=== PATIENT | male | born 1980 | race Caucasian/White ===

== ENCOUNTER 2020-04-28 07:27 | Outpatient (REF) | payer OTHER, SELFPAY ==
[2020-04-28 08:40] LABS: MANUAL DIFF FLAG NO
[2020-04-28 08:46] LABS: Basophils Absolute Auto 0.1 X10*3/uL (0.0-0.2); Basophils Percent Auto 0.7 % (0-2); Eosinophils Absolute Auto 0.3 X10*3/uL (0.0-0.4); Eosinophils Percent Auto 2.7 % (0-4); Hematocrit 44.4 % (42-52); Hemoglobin 15.1 g/dl (14.0-18.0); Imm Gran Abs Auto 0.04 X10*3/uL (0.00-0.03); Imm Gran Pct Auto 0.4 % (0.0-0.4); Lymphocytes Absolute Auto 3.3 X10*3/uL (1.2-4.9); Lymphocytes Percent Auto 33.9 % (20-40); Mean Corpuscular Hemoglobin 30.6 pg (27.0-33.0); Mean Corpuscular Volume 89.9 fL (80-98); Mean Platelet Volume 9.4 fL (9.4-12.4); Monocytes Absolute Auto 0.9 X10*3/uL (0.1-1.2); Monocytes Percent Auto 8.9 % (2-11); Neutrophils Absolute Auto 5.2 X10*3/uL (2.0-8.3); Neutrophils Percent Auto 53.4 % (45-73); Platelet Count 266 X10*3/uL (160-400); Red Blood Count 4.94 X10*6/uL (4.60-5.80); Red Cell Distribution Width 12.8 % (11.0-16.0); White Blood Count 9.8 X10*3/uL (4.8-10.8)
[2020-04-28 08:57] LABS: Glucose Urine UA NEG (NEG); Leukocyte Esterase Urine NEG (NEG); Nitrite Urine NEG (NEG); Specific Gravity - Urine 1.025 (1.005-1.025); Urine Blood NEG (NEG); Urine Ketones NEG (NEG); Urine Protein NEG (NEG-TRACE)
[2020-04-28 08:59] LABS: Appearance Urine CLEAR; Color Urine YELLOW
[2020-04-28 10:01] LABS: Alanine Aminotransferase 30 U/L (0-40); Albumin Level 4.3 g/dL (3.5-5.0); Alkaline Phosphatase 66 U/L (39-117); Anion Gap 14 (12-20); Aspartate Amino Transferase 23 U/L (5-37); Bilirubin Total 0.6 mg/dL (0.0-1.0); Blood Urea Nitrogen 11 mg/dL (9-16); Calcium 9.3 mg/dL (8.4-10.2); Carbon Dioxide 28 mmol/L (22-29); Chloride 103 mmol/L (96-108); Cholesterol 165 mg/dL; Estimated Glomerular Filt Rate > 60; Glucose Fasting 80 mg/dL (60-99); HDL Cholesterol 41 mg/dL; LDL Cholesterol Calculated 101 mg/dl; Potassium 4.5 mmol/l (3.3-5.1); Sodium 140 mmol/L (135-145); Total Protein 7.1 g/dL (6.5-8.0); Triglycerides 117 mg/dL
[2020-04-28 10:50] LABS: Prostate Specific Antigen Scr 0.19 ng/mL (<0.05-4.0)
== END 2020-04-28 07:28 | disposition home or self-care (01) ==
LOC: HO.LAB 07:27
PROVIDERS: PCP Internal Medicine; Visit Provider Internal Medicine
DX: Z00.00 Encounter for general adult medical examination without abnormal findings (principal); I10 Essential (primary) hypertension; F41.9 Anxiety disorder, unspecified; K92.1 Melena; Z12.5 Encounter for screening for malignant neoplasm of prostate
CPT/HCPCS: 36415; 80053; 80061; 81003; 84153; 85025

== ENCOUNTER 2021-05-11 10:38 | Outpatient (REF) | payer OTHER, SELFPAY ==
[2021-05-11 10:44] LABS: MANUAL DIFF FLAG NO
[2021-05-11 11:19] LABS: Basophils Absolute Auto 0.1 X10*3/uL (0.0-0.2); Basophils Percent Auto 0.7 % (0-2); Eosinophils Absolute Auto 0.3 X10*3/uL (0.0-0.4); Eosinophils Percent Auto 2.7 % (0-4); Hematocrit 45.1 % (42.0-52.0); Hemoglobin 14.9 g/dl (14.0-18.0); Imm Gran Abs Auto 0.03 X10*3/uL (0.00-0.03); Imm Gran Pct Auto 0.3 % (0.0-0.4); Lymphocytes Absolute Auto 3.9 X10*3/uL (1.2-4.9); Lymphocytes Percent Auto 34.8 % (20-40); Mean Corpuscular Hemoglobin 29.2 pg (27.0-33.0); Mean Corpuscular Volume 88.3 fL (80.0-98.0); Mean Platelet Volume 9.9 fL (9.4-12.4); Monocytes Absolute Auto 0.9 X10*3/uL (0.1-1.2); Monocytes Percent Auto 8.1 % (2-11); Neutrophils Percent Auto 53.4 % (45-73); Platelet Count 302 X10*3/uL (160-400); Red Blood Count 5.11 X10*6/uL (4.60-5.80); Red Cell Distribution Width 13.1 % (11.0-16.0); White Blood Count 11.2 X10*3/uL (4.8-10.8)
[2021-05-11 11:24] LABS: Appearance Urine CLEAR; Color Urine YELLOW; Glucose Urine UA NEG (NEG); Leukocyte Esterase Urine NEG (NEG); Nitrite Urine NEG (NEG); Specific Gravity - Urine >= 1.030 (1.005-1.025); Urine Blood NEG (NEG); Urine Ketones NEG (NEG); Urine Protein 2+ MG/DL (NEG-TRACE)
[2021-05-11 11:40] LABS: Alanine Aminotransferase 34 U/L (0-40); Alkaline Phosphatase 78 U/L (39-117); Anion Gap 11 (12-20); Aspartate Amino Transferase 24 U/L (5-37); Bilirubin Total 0.5 mg/dL (0.0-1.0); Blood Urea Nitrogen 10 mg/dL (9-16); Calcium 9.5 mg/dL (8.4-10.2); Carbon Dioxide 27 mmol/L (22-29); Chloride 104 mmol/L (96-108); Cholesterol 150 mg/dL; Estimated Glomerular Filt Rate > 60; Glucose Fasting 103 mg/dL (60-99); HDL Cholesterol 36 mg/dL; LDL Cholesterol Calculated 87 mg/dl; Potassium 4.1 mmol/L (3.3-5.1); Sodium 138 mmol/L (135-145); Triglycerides 136 mg/dL
[2021-05-11 11:53] LABS: PSA,Total (Free>4and<10) 0.18 ng/mL (0.00-4.00)
[2021-05-11 12:05] LABS: Calcium Oxalate Crystals Urine 1+ /LPF; WBC Urine 0 /HPF (0-4)
== END 2021-05-11 10:39 | disposition home or self-care (01) ==
LOC: HO.LNP 10:38
PROVIDERS: PCP Internal Medicine; Visit Provider Internal Medicine
DX: Z00.00 Encounter for general adult medical examination without abnormal findings (principal); I10 Essential (primary) hypertension; Z12.5 Encounter for screening for malignant neoplasm of prostate
CPT/HCPCS: 80053; 80061; 81001; 81003; 84153; 85025

== ENCOUNTER → 2021-06-23 10:38 | Outpatient (BNVA) | payer OTHER, SELFPAY | PROVIDERS: PCP Internal Medicine; Visit Provider Internal Medicine ==

== ENCOUNTER 2022-05-25 10:46 | Outpatient (REF) | payer OTHER, SELFPAY ==
[2022-05-25 10:52] LABS: MANUAL DIFF FLAG NO
[2022-05-25 11:05] LABS: Basophils Absolute Auto 0.1 X10*3/uL (0.0-0.2); Basophils Percent Auto 0.7 % (0-2); Eosinophils Absolute Auto 0.3 X10*3/uL (0.0-0.4); Eosinophils Percent Auto 2.6 % (0-4); Hematocrit 43.3 % (42.0-52.0); Hemoglobin 14.3 g/dl (14.0-18.0); Imm Gran Abs Auto 0.06 X10*3/uL (0.00-0.03); Imm Gran Pct Auto 0.5 % (0.0-0.4); Lymphocytes Absolute Auto 3.7 X10*3/uL (1.2-4.9); Lymphocytes Percent Auto 32.7 % (20-40); Mean Corpuscular Hemoglobin 29.4 pg (27.0-33.0); Mean Corpuscular Volume 89.1 fL (80.0-98.0); Mean Platelet Volume 9.6 fL (9.4-12.4); Monocytes Percent Auto 8.7 % (2-11); Neutrophils Absolute Auto 6.3 x10*3/uL (2.0-8.3); Neutrophils Percent Auto 54.8 % (45-73); Platelet Count 281 X10*3/uL (160-400); Red Blood Count 4.86 X10*6/uL (4.60-5.80); Red Cell Distribution Width 13.5 % (11.0-16.0); White Blood Count 11.4 X10*3/uL (4.8-10.8)
[2022-05-25 11:13] LABS: Appearance Urine Clear; Color Urine Yellow; Glucose Urine UA Negative (Negative); Leukocyte Esterase Urine Negative (Negative); Nitrite Urine Negative (Negative); PH 5.5 (5.0-9.0); UMIC TRIGGER UACC YES; Urine Blood Negative (Negative); Urine Ketones Trace mg/dL (Negative); Urine Protein 100 (2+) mg/dL (Neg-Trace)
[2022-05-25 11:18] LABS: Bacteria Urine None Seen (None Seen); Hyaline Casts Urine 0-2 /LPF (0-2); RBC Urine 0-2 /HPF (0-2); Squamous Epithelial Cell Urine 0-2 /HPF (0-2); WBC Urine 0-5 /HPF (0-5)
[2022-05-25 11:50] LABS: Alanine Aminotransferase 29 U/L (0-40); Albumin Level 4.1 g/dL (3.5-5.0); Alkaline Phosphatase 79 U/L (39-117); Anion Gap 12 (12-20); Aspartate Amino Transferase 24 U/L (5-37); Bilirubin Total 0.5 mg/dL (0.0-1.0); Blood Urea Nitrogen 10 mg/dL (9-16); Calcium 9.8 mg/dL (8.4-10.2); Carbon Dioxide 28 mmol/L (22-29); Chloride 103 mmol/L (96-108); Cholesterol 150 mg/dL; Estimated Glomerular Filt Rate > 60; Glucose Fasting 114 mg/dL (60-99); HDL Cholesterol 36 mg/dL; LDL Cholesterol Calculated 78 mg/dl; Potassium 4.4 mmol/L (3.3-5.1); Sodium 139 mmol/L (135-145); Total Protein 7.2 g/dL (6.5-8.0); Triglycerides 182 mg/dL
[2022-05-25 12:09] LABS: PSA,Total (Free>4and<10) 0.18 ng/mL (0.00-4.00)
== END 2022-05-25 10:47 | disposition home or self-care (01) ==
LOC: HO.LNP 10:46
PROVIDERS: Visit Provider Internal Medicine
DX: Z00.00 Encounter for general adult medical examination without abnormal findings (principal); I10 Essential (primary) hypertension; Z12.5 Encounter for screening for malignant neoplasm of prostate
CPT/HCPCS: 80053; 80061; 81001; 84153; 85025

== ENCOUNTER 2022-05-31 16:10 | Outpatient (REF) | payer OTHER, SELFPAY ==
[2022-05-31 16:17] LABS: Appearance Urine Clear; Color Urine Yellow; Glucose Urine UA Negative (Negative); Leukocyte Esterase Urine Negative (Negative); Nitrite Urine Negative (Negative); Specific Gravity - Urine <= 1.005 (1.005-1.025); Urine Blood Negative (Negative); Urine Ketones Negative (Negative); Urine Protein Negative (Neg-Trace)
[2022-05-31 16:19] LABS: Bacteria Urine None Seen (None Seen); Hyaline Casts Urine 0-2 /LPF (0-2); Squamous Epithelial Cell Urine 0-2 /HPF (0-2); WBC Urine 0-5 /HPF (0-5)
[2022-05-31 16:34] LABS: RBC Urine 0-2 /HPF (0-2)
== END 2022-05-31 16:11 | disposition home or self-care (01) ==
LOC: HO.LNP 16:10
PROVIDERS: PCP Internal Medicine; Visit Provider Internal Medicine
DX: R80.9 Proteinuria, unspecified (principal)
CPT/HCPCS: 81001

== ENCOUNTER 2022-07-02 10:50 | Outpatient (REF) | payer OTHER, SELFPAY ==
[2022-07-02 10:58] LABS: Appearance Urine Clear; Color Urine Yellow; Glucose Urine UA Negative (Negative); Leukocyte Esterase Urine Negative (Negative); Nitrite Urine Negative (Negative); Specific Gravity - Urine >= 1.030 (1.005-1.025); UMIC TRIGGER UACC YES; Urine Blood Negative (Negative); Urine Ketones Negative (Negative); Urine Protein 300 (3+) mg/dL (Neg-Trace)
[2022-07-02 11:02] LABS: Bacteria Urine None Seen (None Seen); Hyaline Casts Urine 0-2 /LPF (0-2); Squamous Epithelial Cell Urine 0-2 /HPF (0-2); WBC Urine 0-5 /HPF (0-5)
== END 2022-07-02 10:51 | disposition home or self-care (01) ==
LOC: HO.LNP 10:50
PROVIDERS: Visit Provider Internal Medicine
DX: R80.9 Proteinuria, unspecified (principal)
CPT/HCPCS: 81001

== ENCOUNTER → 2022-08-03 16:02 | Outpatient (BNVA) | payer OTHER, SELFPAY | PROVIDERS: PCP Internal Medicine; Visit Provider Psychiatry & Neurology Psychiatry | DX: Z13.89 Encounter for screening for other disorder (principal) ==

== ENCOUNTER 2022-10-27 07:20 | Outpatient (REF) | payer OTHER, SELFPAY ==
[2022-10-27 09:58] LABS: Creatinine Urine 115.71 mg/dL; Microalbum/Creatinine Ratio Ur 398.4 ug/mg cr
[2022-10-27 10:40] LABS: Appearance Urine Clear; Color Urine Yellow; Glucose Urine UA Negative (Negative); Leukocyte Esterase Urine Negative (Negative); Nitrite Urine Negative (Negative); PH 6.5 (5.0-9.0); Specific Gravity - Urine 1.015 (1.005-1.025); UMIC TRIGGER UA YES; Urine Blood Negative (Negative); Urine Ketones Negative (Negative); Urine Protein 100 (2+) mg/dL (Neg-Trace)
[2022-10-27 10:46] LABS: Bacteria Urine None Seen (None Seen); Hyaline Casts Urine 0-2 /LPF (0-2); RBC Urine 0-2 /HPF (0-2); Squamous Epithelial Cell Urine 0-2 /HPF (0-2); WBC Urine 0-5 /HPF (0-5)
== END 2022-10-27 07:21 | disposition home or self-care (01) ==
LOC: HO.LAB 07:20
PROVIDERS: PCP Internal Medicine; Visit Provider Internal Medicine Nephrology
DX: R80.1 Persistent proteinuria, unspecified (principal)
CPT/HCPCS: 81001; 81003; 82043

== ENCOUNTER 2023-05-26 11:04 | Outpatient (REF) | payer OTHER, SELFPAY | END 2023-05-26 11:05 | disposition home or self-care (01) | LOC: HO.LNP 11:04 | PROVIDERS: Visit Provider Internal Medicine | DX: Z00.00 Encounter for general adult medical examination without abnormal findings (principal); Z12.5 Encounter for screening for malignant neoplasm of prostate; I10 Essential (primary) hypertension | CPT/HCPCS: 80053; 80061; 81001; 84153; 85025 ==

== ENCOUNTER 2023-07-01 11:19 | Outpatient (REF) | payer OTHER, SELFPAY ==
[2023-07-01 11:22] LABS: MANUAL DIFF FLAG NO
[2023-07-01 11:59] LABS: Basophils Absolute Auto 0.1 X10*3/uL (0.0-0.2); Basophils Percent Auto 0.8 % (0-2); Eosinophils Absolute Auto 0.3 X10*3/uL (0.0-0.4); Eosinophils Percent Auto 2.4 % (0-4); Hematocrit 41.7 % (42.0-52.0); Hemoglobin 13.3 g/dl (14.0-18.0); Imm Gran Abs Auto 0.06 X10*3/uL (0.00-0.03); Imm Gran Pct Auto 0.5 % (0.0-0.4); Lymphocytes Absolute Auto 3.8 X10*3/uL (1.2-4.9); Lymphocytes Percent Auto 32.3 % (20-40); Mean Corpuscular HGB Conc 31.9 g/dl (31.0-36.0); Mean Corpuscular Hemoglobin 26.8 pg (27.0-33.0); Mean Corpuscular Volume 84.1 fL (80.0-98.0); Mean Platelet Volume 9.7 fL (9.4-12.4); Monocytes Percent Auto 8.5 % (2-11); Neutrophils Absolute Auto 6.6 x10*3/uL (2.0-8.3); Neutrophils Percent Auto 55.5 % (45-73); Platelet Count 306 X10*3/uL (160-400); Red Blood Count 4.96 X10*6/uL (4.60-5.80); Red Cell Distribution Width 14.1 % (11.0-16.0); White Blood Count 11.8 X10*3/uL (4.8-10.8)
[2023-07-01 12:28] LABS: Iron 50 mcg/dL (45-160); Percent Iron Saturation 16 % (15-50); Total Iron Binding Capacity 315 mcg/dL (228-428); Unsaturated Iron Binding 265 ug/dL
[2023-07-01 13:01] LABS: Folate 13.9 ng/mL (> or = 4.0); Vitamin B12 844 pg/mL (200-900)
== END 2023-07-01 11:20 | disposition home or self-care (01) ==
LOC: HO.LNP 11:19
PROVIDERS: Visit Provider Internal Medicine
DX: D64.9 Anemia, unspecified (principal)
CPT/HCPCS: 82607; 82746; 83540; 85025

== ENCOUNTER 2023-07-19 16:03 | Outpatient (AMB) | payer OTHER, SELFPAY ==
--- NOTE | 2023-07-19 16:13 | A.OFFPSYCH_ITS ---
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 lisinopril inc 20 mg when stressed does meditation uses calm does walks to destress Past Psychiatric History: Past history of depression intermittent panic attacks Mental Status Exam Mental Status Exam Narrative: Mental Status Exam Narrative: Appearance: Casually dressed Behavior: Cooperative appropriate psychomotor: Within normal limits Speech: Normal volume and prosody Thought proccess logical and goal-directed Thought content: Future oriented no self-harming thoughts Mood: Euthymic Affect: Appropriate to mood full affect SI:denies HI:denies VH/AH:none Delusions: None Insight/judgment: Good insight and judgment Memory/cog: Intact Assessment and Plan Assessment & Plan (1) Generalized anxiety disorder: Status: Acute Code(s): F41.1 - Generalized anxiety disorder (2) Major depression, recurrent, full remission: Status: Acute Code(s): F33.42 - Major depressive disorder, recurrent, in full remission (3) Hypertension: Status: Acute Code(s): I10 - Essential (primary) hypertension Plan Pt seen chart reviewed has generally been well works at managing stress quite supportive feels wellbutrin helpful does breathing meditation Medications: Refilled bupropion HCl 300 mg PO DAILY 30 tabs 2RF bupropion HCl 300 mg PO DAILY 90 tabs 1RF Counseling and coordination of Care Diagnosis and Prognosis Counseling: Adequacy of current interventions Details: I spent [30] minutes reviewing the record, seeing the patient and documenting in the medical record. Counseling provided to the patient/caregiver as outlined below. Addressed patient/caregiver concerns regarding current medication regime including effective adherence. Addressed patient/caregiver concerns regarding diagnosis and prognosis including accuracy of diagnosis, prognosis over time, impact of diagnosis. Addressed patient/caregiver concerns regarding impact of recent stressors. 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
== END 2023-07-19 16:19 | disposition home or self-care (01) ==
LOC: HO.HOP 16:04
PROVIDERS: PCP Internal Medicine; Visit Provider Psychiatry & Neurology Psychiatry
DX: F41.1 Generalized anxiety disorder (principal); F33.42 Major depressive disorder, recurrent, in full remission; I10 Essential (primary) hypertension
CPT/HCPCS: 99214

== ENCOUNTER → 2023-07-19 16:03 | Outpatient (BNVA) | payer OTHER, SELFPAY | PROVIDERS: PCP Internal Medicine; Visit Provider Psychiatry & Neurology Psychiatry ==

== ENCOUNTER 2023-12-23 11:20 | Outpatient (AMB) | payer BC, SELFPAY ==
--- NOTE | 2023-12-23 12:42 | A.OFFPSYCH_ITS ---
Intake Intake Visit Reasons: depression Allergies No Known Allergies Allergy (Unverified 06/23/21 11:16) HPI- Psychiatric Chief Complaint: depression HPI Narrative: Patient seen psychiatric follow-up. 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 Patient's mood generally good has some periods of anxiety and rarely takes lorazepam does relaxation breathing. Patient generally feels stable on Wellbutrin. Has some periods of insomnia. Patient's work is stable and feeling good relationship with his and children. No new concerns feels generally good on Wellbutrin 300 mg again some periods of insomnia Past Psychiatric History: Past history of depression intermittent panic attacks Mental Status Exam Mental Status Exam Narrative: Mental Status Exam Narrative: Appearance: Casually dressed Behavior: Cooperative appropriate psychomotor: Within normal limits Speech: Normal volume and prosody Thought proccess logical and goal-directed Thought content: Future oriented no self-harming thoughts Mood: Euthymic Affect: Appropriate to mood full affect SI:denies HI:denies VH/AH:none Delusions: None Insight/judgment: Good insight and judgment Memory/cog: Intact Assessment and Plan Assessment & Plan (1) Generalized anxiety disorder: Status: Acute Code(s): F41.1 - Generalized anxiety disorder (2) Major depression, recurrent, full remission: Status: Acute Code(s): F33.42 - Major depressive disorder, recurrent, in full remission Plan Risks benefits alternatives and sleep hygiene discussed patient doxepin 6 mg started should not be problematic at this low-dose with Wellbutrin. Patient has techniques to manage stress and anxiety rare use of lorazepam continue plan of care Medications: New doxepin 6 mg PO BEDTIME PRN 30 tabs 2RF sleep Refilled bupropion HCl XL 300 mg PO DAILY 90 tabs 1RF lorazepam 0.5 - 1 mg (0.5 - 1 x 1 mg) PO DAILY PRN 30 tabs 2RF anxiety Counseling and coordination of Care Pt. Self Management counseling: Breathing Details-Self Mgmt counseling: Issues related to insomnia anxiety management Medication management counseling: Effectiveness, Side effects and Dosing range Diagnosis and Prognosis Counseling: Adequacy of current interventions Details: I spent [30] minutes reviewing the record, seeing the patient and documenting in the medical record. Counseling provided to the patient/caregiver as outlined below. Addressed patient/caregiver concerns regarding current medication regime including effective adherence. Addressed patient/caregiver concerns regarding diagnosis and prognosis including accuracy of diagnosis, prognosis over time, impact of diagnosis. Addressed patient/caregiver concerns regarding impact of recent stressors. 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
== END 2023-12-23 12:03 | disposition home or self-care (01) ==
LOC: HO.HOP 11:20
PROVIDERS: PCP Internal Medicine; Visit Provider Psychiatry & Neurology Psychiatry
DX: F41.1 Generalized anxiety disorder (principal); F33.42 Major depressive disorder, recurrent, in full remission
CPT/HCPCS: 99214

== ENCOUNTER → 2023-12-23 11:20 | Outpatient (BNVA) | payer BC, SELFPAY | PROVIDERS: PCP Internal Medicine; Visit Provider Psychiatry & Neurology Psychiatry ==

== ENCOUNTER 2024-04-17 15:28 | Outpatient (AMB) | payer BC, SELFPAY ==
--- NOTE | 2024-04-17 15:31 | MHC.OFFVIS ---
Vital Signs 04/17/24 15:32 Height 5 ft 4 in Weight 332 lb 14.368 oz BMI 57.1 BP 158/82 H Blood Pressure Location Lt brachial Position Sitting Pulse 97 Pulse Source Pulse Oximeter Pulse Oximetry (%) 96 Oxygen Delivery Method Room Air Intake Visit Reasons: Obstructive sleep apnea Intake Note: pt is here for follow up of OMARI, and doing well. 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 He is coming for follow-up after about 2 years. He uses CPAP very regularly every night and in fact without CPAP he would not be able to fall asleep. His weight has not changed. He is looking into weight watchers program or starting on anti obesity meds. He has no issue with the CPAP device are the mask but needs new supplies. [facility] Medical History Generalized anxiety disorder OMARI on CPAP Morbid obesity Social History Patient Tobacco Use Status: Never used Tobacco Review of Systems Const All systems reviewed & are unremarkable except as noted in HPI and below Eyes Reports no additional complaints ENT Reports no additional complaints Card Denies chest pain, Denies irregular heart rhythm and Denies leg edema Resp Reports as per HPI and Reports no additional complaints GI Reports no additional complaints Reports no additional complaints Skin/Breast Reports system reviewed and no additional complaints, except as documented Neuro Reports no additional complaints Psych Reports anxiety (Mild controlled) Alexandre/Lymph Reports no additional complaints Aller/Immun Reports no additional complaints Physical Exam Vital Signs: Last Vital Signs Pulse 97 11/26/24 15:32 BP 158/82 H 11/26/24 15:32 Pulse Ox 96 04/17/24 15:32 Oxygen Delivery Method Room Air 04/17/24 15:32 BMI result Body Mass Index 0.6 Const Other: Grossly obese with a very round face and obese neck, General: comfortable, no acute distress, alert and awake Orientation/consciousness: patient oriented x3 HEENT Head: Yes normal to inspection General nose exam: No nasal polyps present and No nasal discharge present Face and sinus: Yes sinuses nontender Mouth: oropharynx abnormals (Narrow and crowded oropharynx, Mallampati class 4) Throat: Yes posterior oropharynx normal Eyes General: appearance normal, both eyes and all related structures Neck Neck: Yes normal visual inspection, Yes no lymphadenopathy, Yes trachea midline and Yes no JVD Thyroid: Thyroid normal Chest Chest palpation & inspection: normal inspection of the chest, normal palpation of entire chest wall and no tenderness Resp Other: Percussion note is not perceptible because of thick chest wall. Breath sounds are distant. Lungs are clear to auscultation no wheezes or rhonchi but breath sounds are decreased over the lower lobes. Cardio Palpation: normal PMI Rate: regular rate Rhythm: regular rhythm Heart sounds: no gallops and no murmurs Peripheral pulses: Peripheral pulses 2+ throughout GI Palpation (GI): Soft to palpation, nontender, No hepatosplenomegaly present, no masses and Other GI palpation findings present (Abdomen is grossly obese and protuberant) Auscultation: normal bowel sounds Back/Spine/Pelvis Thoracic/Lumbar Spine: thoracic and lumbar spine normal to inspection Skin General skin exam: no rashes or lesions noted Neuro General: patient oriented x3 and no focal motor deficits Cranial nerves: Yes CN's II-XII intact bilaterally Extrem General: Yes normal to inspection, Yes no clubbing, cyanosis or edema and Yes no calf tenderness Psych Appearance: grossly normal and well kempt Speech and movement: Normal speech and movement present Results Reviewed Results Reviewed: Compliance report for the last 30 nights is reviewed. He has used 100% of the nights. Average use it per night 6 hours 28 minute. He has fullface mask with pressure of 14 cm. There is a mild degree of air leak. Residual AHI 2.2 Assessment & Plan Assessment & Plan (1) Morbid obesity: Comment: This gentleman known to have morbid obesity for the past many years. He has not been consistent with any weight reduction program. Code(s): E66.01 - Morbid (severe) obesity due to excess calories Category: Medical Plan: I talked to him in detail and advised him to join weight management program. He does need to lose significant amount of weight, and may need bariatric surgery. He plans to talk to his primary care physician and see if he can be enrolled in anti obesity med ( such as Ozempic ) therapy. (2) OMARI on CPAP: Comment: Known to have severe obstructive sleep apnea with nocturnal hypoxemia, since 2016. Has been treated with CPAP, full face mask and pressure of 14 cm, which also eliminated nocturnal hypoxemia. He has been very compliant to the use of CPAP. In fact he just cannot sleep without the CPAP device, and it would be deleterious for his health, to go without the use of CPAP. Code(s): G47.33 - Obstructive sleep apnea (adult) (pediatric); Z99.89 - Dependence on other enabling machines and devices Category: Medical Plan: Commended for good compliance and advised to continue using the CPAP regularly. Order for new supplies is sent. I advised him to come for follow-up at least once a year. Coding Level of Care Code Est Pt Level 3 (41314) Diagnoses Morbid obesity E66.01 OMARI on CPAP G47.33; Z99.89
[2024-04-17 15:32] VITALS: BP 158/82; PULSE 97; O2SAT 96; BMI 57.1
== END 2024-04-17 16:07 | disposition home or self-care (01) ==
PROVIDERS: PCP Internal Medicine; Visit Provider Internal Medicine
DX: E66.01 Morbid (severe) obesity due to excess calories (principal); G47.33 Obstructive sleep apnea (adult) (pediatric); Z99.89 Dependence on other enabling machines and devices
CPT/HCPCS: 99213

== ENCOUNTER 2024-05-29 10:53 | Outpatient (REF) | payer BC, SELFPAY ==
[2024-05-29 10:55] LABS: MANUAL DIFF FLAG NO
[2024-05-29 11:11] LABS: Basophils Absolute Auto 0.1 X10*3/uL (0.0-0.2); Basophils Percent Auto 0.8 % (0-2); Eosinophils Absolute Auto 0.3 X10*3/uL (0.0-0.4); Hematocrit 32.1 % (42.0-52.0); Hemoglobin 9.8 g/dl (14.0-18.0); Imm Gran Abs Auto 0.08 X10*3/uL (0.00-0.03); Imm Gran Pct Auto 0.7 % (0.0-0.4); Lymphocytes Absolute Auto 3.6 X10*3/uL (1.2-4.9); Lymphocytes Percent Auto 32.1 % (20-40); Mean Corpuscular HGB Conc 30.5 g/dl (31.0-36.0); Mean Corpuscular Hemoglobin 22.7 pg (27.0-33.0); Mean Corpuscular Volume 74.3 fL (80.0-98.0); Mean Platelet Volume 9.3 fL (9.4-12.4); Monocytes Percent Auto 9.1 % (2-11); Neutrophils Absolute Auto 6.1 x10*3/uL (2.0-8.3); Neutrophils Percent Auto 54.3 % (45-73); Platelet Count 325 X10*3/uL (160-400); Red Blood Count 4.32 X10*6/uL (4.60-5.80); Red Cell Distribution Width 16.5 % (11.0-16.0); White Blood Count 11.2 X10*3/uL (4.8-10.8)
[2024-05-29 11:13] LABS: Appearance Urine Clear; Color Urine Yellow; Glucose Urine UA Negative (Negative); Leukocyte Esterase Urine Negative (Negative); Nitrite Urine Negative (Negative); PH 5.5 (5.0-9.0); Specific Gravity - Urine 1.025 (1.005-1.025); UMIC TRIGGER UACC YES; Urine Blood Negative (Negative); Urine Ketones Negative (Negative); Urine Protein 300 (3+) mg/dL (Neg-Trace)
[2024-05-29 11:18] LABS: Bacteria Urine None Seen (None Seen); RBC Urine 0-2 /HPF (0-2); Squamous Epithelial Cell Urine 0-2 /HPF (0-2); WBC Urine 0-5 /HPF (0-5)
[2024-05-29 11:37] LABS: Alanine Aminotransferase 33 U/L (0-40); Albumin Level 3.8 g/dL (3.5-5.0); Alkaline Phosphatase 61 U/L (39-117); Anion Gap 13 (12-20); Aspartate Amino Transferase 32 U/L (5-37); Bilirubin Total 0.3 mg/dL (0.0-1.0); Blood Urea Nitrogen 9 mg/dL (9-16); Calcium 8.7 mg/dL (8.4-10.2); Carbon Dioxide 25 mmol/L (22-29); Chloride 105 mmol/L (96-108); Cholesterol 137 mg/dL (<200); Estimated Glomerular Filt Rate > 60; Glucose Fasting 116 mg/dL (60-99); HDL Cholesterol 35 mg/dL (>40); LDL Cholesterol Calculated 71 mg/dL (<100); Potassium 3.8 mmol/L (3.3-5.1); Sodium 139 mmol/L (135-145); Total Protein 6.9 g/dL (6.5-8.0); Triglycerides 155 mg/dL (<150)
[2024-05-29 12:00] LABS: PSA,Total (Free>4and<10) 0.15 ng/mL (0.00-4.00)
== END 2024-05-29 10:54 | disposition home or self-care (01) ==
LOC: HO.LNP 10:53
PROVIDERS: Visit Provider Internal Medicine
DX: Z00.00 Encounter for general adult medical examination without abnormal findings (principal); I10 Essential (primary) hypertension; Z12.5 Encounter for screening for malignant neoplasm of prostate
CPT/HCPCS: 80053; 80061; 81001; 84153; 85025

== ENCOUNTER 2024-06-15 | Outpatient (REF) | payer BC, SELFPAY ==
[2024-06-15 11:40] LABS: Iron 37 mcg/dL (45-160); Percent Iron Saturation 11 % (15-50); Total Iron Binding Capacity 341 mcg/dL (228-428); Unsaturated Iron Binding 304 ug/dL
--- OUTSIDE RECORDS SUMMARY | 2024-06-15 12:11 | XMS_ITS ---
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 Name Role Phone Kamar Johnson Primary Care Provider [phone] Allergies No Known Allergies REASON FOR VISIT 6 MO F/U Medications Medication SIG (Take, Route, Frequency, Duration) Notes Start Date End Date Status Tadalafil 20 MG TAKE 1/2 TABLET BY M OUTH ONCE DAILY NEEDED for 60 Active Metoprolol Succinate ER 50 MG TAKE ONE TABLET BY MOUTH ONCE DAILY Active Lisinopril 20 MG 1 tablet Orally Once a day Active buPROPion HCl ER (XL) 300 MG 1 tablet in the morning Orally Once a day Active LORazepam 1 MG 1 tablet as needed Orally prn Not-Taking Vital Signs Blood pressure systolic 132 mm Hg 12/01/19 24 Blood pressure diastolic 88 mm Hg 024 Height 64.5 in 12/01/2023 Weight 324 lbs 12/01/2023 BMI 54.75 kg/m2 12/01/2023 Encounters Encounter Location Date Provider Diagnosis Kamar Johnson MD [address] [place] [phone] 12/01/2023 Kamar Johnson Essential hypertension I10 ; Anxiety F41.9 and OMARI (obstructive sleep apnea) G47.33 Assessments Encounter Date Diagnosis (ICD Code) Assessment Notes Treatment Notes Treatment Clinical Notes Section Notes 12/01/2023 Essential hypertension (ICD-10 - I10) doing well, will continue current regiment 12/01/2023 Anxiety (ICD-10 - F41.9) doing well on meds, will continue current regiment 12/01/2023 OMARI (obstructive sleep apnea) (ICD-10 - G47.33) using nightly. Plan Of Treatment Medication Medication Name Sig Start Date Stop Date Notes Metoprolol Succinate ER 50 MG TAKE ONE T ABLET BY MOUTH ONCE DAILY Lisinopril 20 MG 1 tablet Orally Once a day buPROPion HCl ER (XL) 300 MG 1 tablet in the morning Orally Once a day Treatment Notes Assessment Notes Essential hypertension doing well, will continue current regiment Anxiety doing well on meds, will continue current regiment OMARI (obstructive sleep apnea) using nigh tly. Next Appt Details Provider Name:Kamar lynch, 07/16/2024 07:30:00 AM, [address] [place] [address], [address], [place], [place], [phone], Provider Name:Kamar lynch, 06/07/2025 08:00:00 AM, [address] [place] [address], Suite [facility], [place], [place], [phone], Provider Name:Kamar lynch, 06/17/2025 04:00:00 PM, [address] [place] [address], [address], [place], [place], [phone], Progress Notes * Dominic WILKERSONOB:1980 (43 yo M)Acc No.[id number]:12/01/2023 Progress Notes Patient:?Davon Wilkerson Provider:?Kamar Johnson MD :1980???Age:43 Y???Sex:Male Ever e:12/01/2023 Address:[address] [place], [place] [id number] Subjective: * Chief Complaints: * ???6 MO F/U * HPI: ???Symptom(s):? patient is a 43 yo male here for 6 month follow up visit. * ROS:?General/Constitutional:?Denies?Chills.?Denies?Fatigue.?Denies?Fever.?Denies?Headache.?ENT:?Patient denies?decreased sense of smell , any loss of taste , sore throat.?Denies?Sore throat.?Respiratory:?Denies?Cough.?Denies?Shortness of breath at rest.?Denies?Shortness of breath with exertion.?Cardiovascular:?Denies?Chest pain at rest.?Denies?Chest pain with exertion.?Denies?Dizziness.?Denies?Palpitations.?Denies?Shortness of breath.?Gastrointestinal:?Denies?Diarrhea.?Denies?Nausea.?Musculoskeletal:?Patient denies?muscle aches.?Peripheral Vascular:?Patient denies?red and blue toes.? * Medical History:? * Surgical History:? * Hospitalization/Major Diagno stic Procedure:? * Medications:?TakingbuPROPion HCl ER (XL) 300 MG Tablet Extended Release 24 Hour 1 tablet in the morning Orally Once a dayTadalafil 20 MG Tablet TAKE 1/2 TABLET BY MOUTH ONCE DAILY NEEDED Lisinopril 20 MG Tablet 1 tablet Orally Once a dayMetoprolol Succinate ER 50 MG Tablet Extended Release 24 Hour TAKE ONE TABLET BY MOUTH ONCE DAILY Taking buPROPion HCl ER (XL) 300 MG Tablet Extended Release 24 Hour 1 tablet in the morning Orally Once a dayTaking Tadalafil 20 MG Tablet TAKE 1/2 TABLET BY MOUTH ONCE DAILY NEEDED Taking Lisinopril 20 MG Tablet 1 tablet Orally Once a dayTaking Metoprolol Succinate ER 50 MG Tablet Extended Release 24 Hour TAKE ONE TABLET BY MOUTH ONCE DAILY Not-Taking/PRNLORazepam 1 MG Tablet 1 tablet as needed Orally prnMedication List reviewed and reconciled with the patientNot-Taking/PRN LORazepam 1 MG Tablet 1 tablet as needed Orally prnMedication List reviewed and reconciled with the patient * Allergies:?N.K.D.A.yes[Aller gies Verified] Objective: * Vitals:?Ht: 64.5, Wt:324, BM I:54.75, BP:132/88. * Examination: ???General Examination: ?GENERAL APPEARANCE:? alert, well hydrated, in no distress , male.?HEAD:? normocephalic.?SKIN:? good turgor.?HEART:? no murmurs, rubs, gallops, regular rate and rhythm.?LUNGS:? no wheezes, rales, rhonchi, good air movement, clear to auscultation bilaterally.? Assessment: * Assessment: 1.?Essential hypertension - I10 (Primary)?2.?Anxiety - F41.9?3.?OMARI (obstructive sleep apnea) - G47.33? Plan: * Treatment: 2.?Anxiety? Continue buPROPion HCl ER (XL) Tablet Extended Release 24 Hour, 300 MG, 1 tablet in the morning, Orally, Once a day.?? Notes: doing well on meds, will continue current regiment.?? 3.?OMARI (obstructive sleep ap raul)? Notes: using nightly.?? * Procedure Codes:? * * Sign off status: Completed true * Provider:?Kamar Johnson MD Date:?0 12/01/2023 Generated for Rehana torres/Roopa/Charanjit on:?06/15/2024 12:10 PM EST History and Physical Notes * HPI (History of Present Illness) Category Sub-Category Detail Notes Category Not es Symptom(s) patient is a 43 yo male here for 6 month follow up visit. Examination Category Sub-Category Detail Notes Category Not es General Examination GENERAL APPEARANCE: alert, w ell hydrated, in no distress , male HEAD: normocephalic HEART: no murmurs, rubs, ga llops, regular rate and rhythm LUNGS: no wheezes, rales, r honchi, good air movement, clear to auscultation bilaterally SKIN: good turgor
--- OUTSIDE RECORDS SUMMARY | 2024-06-15 12:11 | XMS_ITS ---
Author Organization Kamar Johnson MD Address [address] [place] [id number] Care Team Providers Care Manufacturing Test Engineer Name Role Phone Kamar Johnson Primary Care Provider Results Component Value Reference Range Notes Complete Blood Count Auto Di ff (Not yet reviewed by provider) Interpretation:see back 06-14-2024 Performing Lab:[facility], [address] [place] [phone] Notes/Report: White Blood Count 11.2 4.8-10.8 X10*3/uL Red Blood Count 4.32 4.60-5.80 X10*6/uL Hemoglobin 9.8 14.0-18.0 g/dl Hematocrit 32.1 42.0-52.0 % Mean Corpuscular Volume 74.3 80.0-98.0 fL Mean Corpuscular Hemoglobin 22.7 27.0-33.0 pg Mean Corpuscular HGB Conc 30.5 31.0-36.0 g/dl Red Cell Distribution Width 16.5 11.0-16.0 % Platelet Count 325 160-400 X10*3/uL Mean Platelet Volume 9.3 9.4-12.4 fL Neutrophils Percent Auto 54.3 45-73 % Imm Gran Pct Auto 0.7 0.0-0.4 % Lymphocytes Percent Auto 32.1 20-40 % Monocytes Percent Auto 9.1 2-11 % Eosinophils Percent Auto 3.0 0-4 % Basophils Percent Auto 0.8 0-2 % NRBC Pct Auto 0.0 0.0-0.2 /100WBC Neutrophils Absolute Auto 6.1 2.0-8.3 x10*3/u L Imm Gran Abs Auto 0.08 0.00-0.03 X10*3/uL Lymphocytes Absolute Auto 3.6 1.2-4.9 X10*3/u L Monocytes Absolute Auto 1.0 0.1-1.2 X10*3/uL Eosinophils Absolute Auto 0.3 0.0-0.4 X10*3/u L Basophils Absolute Auto 0.1 0.0-0.2 X10*3/uL NRBC Abs Auto 0.000 0.0-0.012 X10*3/uL Comprehensive [place]. Panel Fa st Reviewed date:05/29/2024 12:55:13 PM Interpretation: Performing Lab:[address] [phone] Notes/Report: Sodium 139 135-145 mmol/L Potassium 3.8 3.3-5.1 mmol/L Chloride 105 96-108 mmol/L Carbon Dioxide 25 22-29 mmol/L Anion Gap 13 12-20 Blood Urea Nitrogen 9 9-16 mg/dL Creatinine 0.83 0.5-1.4 mg/dL Estimated Glomerular Filt Rate > 60 Chronic Kidney Disease: Estimated GFR < 60 mL/min/1.73m2 Severe Kidney Disease: Estimated GFR < 15 mL/min/1.73m2 Glucose Fasting 116 60-99 mg/dL A fasting glucose from 100-125 mg/dl is considered impaired (pre-diabetes). Calcium 8.7 8.4-10.2 mg/dL Bilirubin Total 0.3 0.0-1.0 mg/dL Aspartate Amino Transferase 32 5-37 U/L Alanine Aminotransferase 33 0-40 U/L Total Protein 6.9 6.5-8.0 g/dL Albumin Level 3.8 3.5-5.0 g/dL Alkaline Phosphatase 61 39-117 U/L Lipid Panel Reviewed date:05/29/2024 12:38:57 PM Interpretation: Performing Lab:[address] [phone] Notes/Report: Triglycerides 155 <150 mg/dL Desirable Triglyceride: less than 150 mg/dL Borderline High Triglyceride 150-199 mg/dL High Triglyceride: 200-499 mg/dL Very High Triglyceride: greater than or equal to 5OO mg/dL Cholesterol 137 <200 mg/dL Desirable Cholesterol: less than 200 mg/dL Borderline High Cholesterol: 200-239 mg/dL High Cholesterol: greater than 239 mg/dL LDL Cholesterol Calculated 71 <100 mg/dL Desirable LDL: less than 100 mg/dL Near Optimal/Above Optimal LDL: 110-129 mg/dL Borderline High LDL: 130-159 mg/dL High LDL: 160-189 mg/dL Very High LDL: greater than or equal to 190 mg/dL HDL Cholesterol 35 >40 mg/dL Desirable HDL: greater than 40 mg/dL Note: This HDL assay may give artificially low results in patients with liver disease. PSA,Total (Free>4and<10) Reviewed date:05/29/2024 12:38:49 PM Interpretation: Performing Lab:[address] [phone] Notes/Report: PSA,Total (Free>4and<10) 0.15 0.00-4.00 ng/mL A Free PSA was not performed: The percentage of Free PSA can be used to enhance the differentiation of prostate cancer from benign prostatic disease in subjects whose PSA levels are between 4.0 and 10.0 ng/mL. For subjects whose PSA levels are below 4.0 or above 10.0 ng/mL, the risk of prostate cancer is determined on the basis of the PSA alone. Therefore the % Free PSA is recommended only for those subjects whose PSA levels are between 4.0 and 10.0 ng/mL. PSA methodology: [employer] i Chemiluminescent Microparticle Immunoassay (CMIA) UA ClnCatch+Micro w/rflx Cul t Reviewed date:05/29/2024 04:25:59 PM Interpretation: Performing Lab:[facility], [address] [place] [phone] Notes/Report: Urine, Clean Catch Color Urine Yellow Appearance Urine Clear PH 5.5 5.0-9.0 Glucose Urine UA Negative Negative mg/dL Urine Blood Negative Negative Specific [place] - Urine 1.025 1.005-1.025 Urine Protein 300 (3+) Neg-Trace mg/dL Urine Ketones Negative Negative mg/dL Nitrite Urine Negative Negative Leukocyte Esterase Urine Negative Negative RBC Urine 0-2 0-2 /HPF WBC Urine 0-5 0-5 /HPF Squamous Epithelial Cell Urine 0-2 0-2 /HPF Bacteria Urine None Seen None Seen Hyaline Casts Urine 3-5 0-2 /LPF REASON FOR VISIT FASTING LABS Encounters Encounter Location Date Provider Diagnosis Kamar Johnson MD [address] [place] [address] [place] [phone] 05/29/2024 Kamar Johnson Blood tests for routine general physical examination Z00.00 and Essential hypertension I10 Assessments Encounter Date Diagnosis (ICD Code) Assessment Notes Treatment Notes Treatment Clinical Notes Section Notes 05/29/2024 Blood tests for routine general physical examination (ICD-10 - Z00.00) 05/29/2024 Essential hypertension (ICD-10 - I10) Plan Of Treatment Pending Test Test Name Order Date Complete Blood Count Auto Diff Next Appt Details Provider Name:Kamar lynch, 07/16/2024 07:30:00 AM, [address] [place] [address], Suite [facility], [place], [place], [phone], Provider Name:Kamar lynch, 06/07/2025 08:00:00 AM, [address] [place] [address], Suite [facility], [place], [place], [phone], Provider Name:Kamar lynch, 06/17/2025 04:00:00 PM, [address] [place] [address], Suite [facility], [place], [place], [phone], Progress Notes * Abdelrahman WILKERSONJameyOB:1980 (44 yo M)Acc No.[id number]:05/29/2024 Progress Note Patient:?Davon WILKERSON Provider:?Kamar Johnson MD :1980???Age:44 Y???Sex:Male Ever e:05/29/2024 Address:[address] [place] [address] [id number] Subjective: * Chief Complaints: * ???1. FASTING LABS. * Medical History:? Objective: * Vitals:? Assessment: * Assessment: 1.?Blood tests for routine g eneral physical examination - Z00.00 (Primary)???2.?Essential hypertension - I10??? Plan: * Treatment: 2.?Essential hypertension?LAB: Complete Blood Count Auto Diff (Collection Date & Time - 05/29/2024 07:15 AM) ?LAB: Comprehensive [place]. Panel Fast (Collection Date & Time - 05/29/2024 07:15 AM) ?LAB: Lipid Panel (Collection Date & Time - 05/29/2024 07:15 AM) ?LAB: PSA,Total (Free>4and<10) (Collection Date & Time - 05/29/2024 07:15 AM) ?LAB: UA ClnCatch+Micro w/rflx Cult (Collection Date & Time - 05/29/2024 07:15 AM) * Procedure Codes:?13945 VENIP UNCT, ROUTINE* * * The named appointment provid er may or may not be the originator of this progress note, and it is not deemed complete until electronically signed by the appointment provider. Sign off status: Pending * Provider:?Kamar Johnson MD Date:?0 05/29/2024 Generated for Rehana torres/Roopa/Kristaitting on:?06/15/2024 12:11 PM EST
--- OUTSIDE RECORDS SUMMARY | 2024-06-15 12:11 | XMS_ITS | Patient Health Record ---
Author Organization Kamar Johnson MD Address [address] [place] [id number] Care Team Providers Care Junior Accounting Clerk Name Role Phone Kamar Johnson Primary Care Provider [phone] Allergies No Known Allergies Results Component Value Reference Range Notes Vitamin B12 and Folate Reviewed date:07/02/2023 06:33:21 PM Interpretation: Performing Lab:[facility], [address] [place] [phone] Notes/Report: Vitamin B12 844 200-900 pg/mL NORMAL 200-900 PG/ML INDETERMINATE 160-199 PG/ML DEFICIENT < 160 PG/ML Folate 13.9 > or = 4.0 ng/mL Reference Values: > or = 4.0 ng/mL < 4.0 ng/mL suggests folate deficiency Methotrexate, aminopterin and folinic acid (leucovorin) are chemotherapeutic agents whose molecular structures are similar to folate; therefore, the [employer] folate assay cannot be used for patients using these drugs. Complete Blood Count Auto Di ff Reviewed date:07/02/2023 06:42:39 PM Interpretation: Performing Lab:[facility], [address] [place] [phone] Notes/Report: White Blood Count 11.8 4.8-10.8 X10*3/uL Red Blood Count 4.96 4.60-5.80 X10*6/uL Hemoglobin 13.3 14.0-18.0 g/dl Hematocrit 41.7 42.0-52.0 % Mean Corpuscular Volume 84.1 80.0-98.0 fL Mean Corpuscular Hemoglobin 26.8 27.0-33.0 pg Mean Corpuscular HGB Conc 31.9 31.0-36.0 g/dl Red Cell Distribution Width 14.1 11.0-16.0 % Platelet Count 306 160-400 X10*3/uL Mean Platelet Volume 9.7 9.4-12.4 fL Neutrophils Percent Auto 55.5 45-73 % Imm Gran Pct Auto 0.5 0.0-0.4 % Lymphocytes Percent Auto 32.3 20-40 % Monocytes Percent Auto 8.5 2-11 % Eosinophils Percent Auto 2.4 0-4 % Basophils Percent Auto 0.8 0-2 % NRBC Pct Auto 0.0 0.0-0.2 /100WBC Neutrophils Absolute Auto 6.6 2.0-8.3 x10*3/u L Imm Gran Abs Auto 0.06 0.00-0.03 X10*3/uL Lymphocytes Absolute Auto 3.8 1.2-4.9 X10*3/u L Monocytes Absolute Auto 1.0 0.1-1.2 X10*3/uL Eosinophils Absolute Auto 0.3 0.0-0.4 X10*3/u L Basophils Absolute Auto 0.1 0.0-0.2 X10*3/uL NRBC Abs Auto 0.000 0.0-0.012 X10*3/uL IRON PROFILE Reviewed date:07/02/2023 06:31:41 PM Interpretation: Performing Lab:[facility], [address] [place] [phone] Notes/Report: Iron 50 45-160 mcg/dL Total Iron Binding Capacity 315 228-428 mcg/d L Percent Iron Saturation 16 15-50 % Unsaturated Iron Binding 265 Complete Blood Count Auto Di ff (Not yet reviewed by provider) Interpretation:see back 06-14-2024 Performing Lab:[facility], [address] [place] [phone] Notes/Report: White Blood Count 11.2 4.8-10.8 X10*3/uL [...] NRBC Abs Auto 0.000 0.0-0.012 X10*3/uL Comprehensive [place]. Panel Fa st Reviewed date:05/29/2024 12:55:13 PM Interpretation: Performing Lab:[facility], [address] [place] [phone] Notes/Report: Sodium 139 135-145 mmol/L Potassium 3.8 [...] Panel Reviewed date:05/29/2024 12:38:57 PM Interpretation: Performing Lab:[address] [phone] Notes/Report: Triglycerides 155 <150 mg/dL Desirable Triglyceride: [...] (Free>4and<10) Reviewed date:05/29/2024 12:38:49 PM Interpretation: Performing Lab:[address] [phone] Notes/Report: PSA,Total (Free>4and<10) 0.15 0.00-4.00 ng/mL A [...] between 4.0 and 10.0 ng/mL. PSA methodology: [employer] i Chemiluminescent Microparticle Immunoassay (CMIA) UA ClnCatch+Micro w/rflx Cul t Reviewed date:05/29/2024 04:25:59 PM Interpretation: Performing Lab:[address] [phone] Notes/Report: Urine, Clean Catch Color Urine Yellow Appearance Urine Clear PH 5.5 5.0-9.0 Glucose Urine UA Negative Negative mg/dL Urine Blood Negative Negative Specific [place] - Urine 1.025 1.005-1.025 Urine Protein 300 (3+) Neg-Trace mg/dL Urine Ketones Negative Negative mg/dL Nitrite Urine Negative Negative Leukocyte Esterase Urine Negative Negative RBC Urine 0-2 0-2 /HPF WBC Urine 0-5 0-5 /HPF Squamous Epithelial Cell Urine 0-2 0-2 /HPF Bacteria Urine None Seen None Seen Hyaline Casts Urine 3-5 0-2 /LPF IRON PROFILE (Not yet review ed by provider) Interpretation: Performing Lab:[facility], [address] [place] [phone] Notes/Report: Iron 37 45-160 mcg/dL Total Iron Binding Capacity 341 228-428 mcg/d L Percent Iron Saturation 11 15-50 % Unsaturated Iron Binding 304 Reason For Referral Reason DEQUERVAINS TENOSYNO VITIS Diagnosis 1 De Quervain's tenosy novitis (M65.4) Referral Organization Kamar Johnson MD Referring Provider First Name Kamar Referring Provider Last Name Alex Referring Provider Speciality Internal M edicine Referred Provider Mahesh Gan Referred Provider Specialty Orthopedic S urgery Referral Priority Routine Medications Medication SIG (Take, Route, Frequency, Duration) Notes Start Date End Date Status Doxepin HCl 10 MG 1 capsule at bedtime Orally Once a day Active Lisinopril 20 MG TAKE ONE TABLET BY M OUTH EVERY DAY Active LORazepam 1 MG 1 tablet as needed Orally prn Not-Taking buPROPion HCl ER (XL) 300 MG 1 tablet in the morning Orally Once a day Active Metoprolol Succinate ER 50 MG TAKE ONE TABLET BY MOUTH EVERY DAY Active Tadalafil 20 MG TAKE 1/2 TABLET BY M OUTH ONCE DAILY NEEDED for 60 Active Immunizations Vaccine Route Administration Date Status Comme nts Fluarix Quadrivalent Unknown 03/06/[address] [facility] Fluarix Quadrivalent IM Intramuscular 04/24/2019 Administe red Covid Vaccine Unknown 07/31/2020 Administered Pfizer Covid Vaccine Unknown 08/21/2020 Administered Pfizer SARS-COV-2 Pfizer Unknown 04/02/2021 Administered Fluarix Quadrivalent Unknown 03/06/2021 Administered Fluarix Quadrivalent Unknown 03/01/2022 Administered [facility] Social History Tobacco Use: Social History Observation Description Date Details (start date - stop date) Never Smoker NA - NA Tobacco Use/Smoking Question Answer Notes Patient is a nonsmoker Additional Findings: Tobacco Non-User Cu rrent non-smoker, currently using no form of tobacco Alcohol Screen Question Answer Notes Did you have a drink contain ing alcohol in the past year? Yes How often did you have a dri nk containing alcohol in the past year? Monthly or less (1 point) How many drinks did you have on a typical day when you were drinking in the past year? 1 or 2 drinks (0 point) How often did you have 6 or more drinks on one occasion in the past year? Never (0 point) Points 1 Interpretation Negative Problems Problem Type SNOMED Code ICD Code Onset Dates Problem Status W/U Status Risk Notes Problem Erectile dysfunction (366500797) Erectile dysfunction (N52.9) Active confirmed Problem 61260002 Anxiety (F41.9) Active confirmed Problem 89612057 Essential hypertension (I10) Active confirmed Problem 301393767 Morbid obesity (E66.01) Active confirmed Problem 21532956 Iron deficiency anemia, unspecified iron deficiency anemia type (D50.9) Active confirmed Problem 53142059 Internal hemorrhoids (K64.8) Active confirmed Problem Obstructive sleep apnea syndrome (89799621) OMARI (obstructive sleep apnea) (G47.33) Active confirmed Problem 03597048702500635 Carpal tunnel syndrome on both sides (G56.03) Active confirmed Vital Signs Blood pressure diastolic 84 mm Hg 06/14/2024 derrick ght is up 10 pounds since 12-01-23 Height 64.5 in 06/14/2024 weight is up 10 pounds since 12-01-23 Blood pressure systolic 132 mm Hg 06/14/2024 weig ht is up 10 pounds since 12-01-23 Weight 234 lbs 06/14/2024 weight is up 10 pounds since 12-01-23 BMI 39.54 kg/m2 06/14/2024 weight is up 10 pounds since 12-01-23 Encounters Encounter Location Date Provider Diagnosis Kamar Johnson MD [address] [place] [address] [address] [place] [id number] 07/01/2023 Kamar Johnson Mild anemia D64.9 Kamar Johnson MD [address] [place] [address] [id number] 05/29/2024 Kamar Johnson Blood tests for routine general physical examination Z00.00 and Essential hypertension I10 Kamar Johnson MD [address] [place] [address] [address] [place] [phone] 06/14/2024 Kamar Johnson Iron deficiency anemia, unspecified iron deficiency anemia type D50.9 ; Annual physical exam Z00.00 ; Morbid obesity E66.01 ; De Quervain's tenosynovitis M65.4 ; Essential hypertension I10 ; Colon cancer screening Z12.11 ; Depression screening Z13.31 and Anxiety F41.9 Kamar Johnson MD [address] [place] [phone] 12/01/2023 Kamar Johnson Essential hypertension I10 ; Anxiety F41.9 and OMARI (obstructive sleep apnea) G47.33 Assessments Encounter Date Diagnosis (ICD Code) Assessment Notes Treatment Notes Treatment Clinical Notes Section Notes 07/01/2023 Mild anemia (ICD-10 - D64.9) 05/29/2024 Blood tests for routine general physical examination (ICD-10 - Z00.00) 05/29/2024 Essential hypertension (ICD-10 - I10) 06/14/2024 Iron deficiency anemia, unspecified iron deficiency anemia type (ICD-10 - D50.9) will continue to monitor 06/14/2024 Annual physical exam (ICD-10 - Z00.00) labs reviewed and discussed with patient 12/01/2023 Essential hypertension (ICD-10 - I10) doing well, will continue current regiment 12/01/2023 Anxiety (ICD-10 - F41.9) doing well on meds, will continue current regiment 06/14/2024 Morbid obesity (ICD-10 - E66.01) is going to try the weight loss clinic 12/01/2023 OMARI (obstructive sleep apnea) (ICD-10 - G47.33) using nightly. 06/14/2024 De Quervain's tenosynovitis (ICD-10 - M65.4) referral to dr gan hand surgeon/ REFERRAL FAXED TO DR ROMEO OFFICE 06/14/2024 Essential hypertension (ICD-10 - I10) stable, will contnue current regiment 06/14/2024 Colon cancer screening (ICD-10 - Z12.11) guaiac negative 06/14/2024 Depression screening (ICD-10 - Z13.31) negative screen 06/14/2024 Anxiety (ICD-10 - F41.9) stable, will continue current regiment Plan Of Treatment Pending Test Test Name Order Date Electrocardiogram (EKG) 06/07/2019 Complete Blood Count Auto Diff IRON PROFILE 06/14/2024 Next Appt Details Provider Name:Kamar lynch, 07/16/2024 07:30:00 AM, [address] [place] [address], [address], [phone], Provider Name:Kamar lynch, 06/07/2025 08:00:00 AM, [address] [place] [address], Suite [facility], [place], [place], [phone], Provider Name:Kamar lynch, 06/17/2025 04:00:00 PM, [address] [place] [address], Suite [facility], [place], [place], [phone], Insurance Providers Payer Name Payer Address Payer Phone Subscriber Number Group Number Insured Name Patient Relationship to Insured Coverage Start Date Coverage End Date [employer] [facility] [address] [place], [place] [id number] Davon Wilkerson Self - patient is the insured Medical (General) History Medical History History ICD Code Colonoscopy 01/07/20 - Dr. Rios (repeat 10 years) Hematochezia K92.1 Hematochezia
--- OUTSIDE RECORDS SUMMARY | 2024-06-15 12:12 | XMS_ITS ---
Author Organization Kamar Johnson MD Address [address] [place], [place] [id number] Care Team Providers Care Switch Maker Name Role Phone Kamar Johnson Primary Care Provider Allergies No Known Allergies Results Component Value Reference Range Notes IRON PROFILE (Not yet review ed by provider) Interpretation: Performing Lab:[facility], [address] [place] [phone] Notes/Report: Iron 37 45-160 mcg/dL Total Iron [...] Specialty Orthopedic S urgery Referral Priority Routine REASON FOR VISIT ANNUAL EXAM Medications Medication SIG (Take, Route, Frequency, Duration) [...] the morning Orally Once a day Active Tadalafil 20 MG TAKE 1/2 TABLET BY M OUTH ONCE DAILY NEEDED for 60 Active Metoprolol Succinate ER 50 MG TAKE ONE TABLET BY MOUTH EVERY DAY Active Social History Tobacco Use: Social History Observation [...] Problem Status W/U Status Risk Notes Problem 97985206 Iron deficiency anemia, unspecified iron deficiency anemia type (D50.9) Active confirmed Problem 698020827 Morbid obesity (E66.01) Active confirmed Vital Signs Blood pressure systolic 132 mm Hg 06/14/19 25 Blood pressure diastolic 84 mm Hg 025 Height 64.5 in 06/14/2024 Weight 234 lbs 06/14/2024 BMI 39.54 kg/m2 06/14/2024 weight is up 10 pounds since 12-01-23 Encounters Encounter Location Date Provider Diagnosis Kamar Johnson MD [address] [place] [address] [place] [phone] 06/14/2024 Kamar Johnson Iron deficiency anemia, unspecified iron deficiency anemia type D50.9 ; Annual physical exam Z00.00 ; Morbid obesity E66.01 ; De Quervain's tenosynovitis M65.4 ; Essential hypertension I10 ; Colon cancer screening Z12.11 ; Depression screening Z13.31 and Anxiety F41.9 Assessments Encounter Date Diagnosis (ICD Code) Assessment Notes Treatment Notes Treatment Clinical Notes Section Notes 06/14/2024 Iron deficiency anemia, unspecified iron deficiency anemia type (ICD-10 - D50.9) will continue to monitor 06/14/2024 Annual physical exam (ICD-10 - Z00.00) labs reviewed and discussed with patient 06/14/2024 Morbid obesity (ICD-10 - E66.01) is going to try the weight loss clinic 06/14/2024 De Quervain's tenosynovitis (ICD-10 - M65.4) referral to dr bertram aguilar surgeon/ REFERRAL FAXED TO DR ROMEO OFFICE 06/14/2024 Essential hypertension (ICD-10 - I10) stable, will contnue current regiment 06/14/2024 Colon cancer screening (ICD-10 - Z12.11) guaiac negative 06/14/2024 Depression screening (ICD-10 - Z13.31) negative screen 06/14/2024 Anxiety (ICD-10 - F41.9) stable, will continue current regiment Plan Of Treatment Medication Medication Name Sig Start Date Stop Date Notes Doxepin HCl 10 MG 1 capsule at bedtime Orally Once a day Lisinopril 20 MG TAKE ONE TABLET BY M OUTH EVERY DAY Metoprolol Succinate ER 50 MG TAKE ONE T ABLET BY MOUTH EVERY DAY Treatment Notes Assessment Notes Iron deficiency anemia, unsp ecified iron deficiency anemia type will continue to monitor Annual physical exam labs reviewed and d iscussed with patient Morbid obesity is going to try the weight loss clinic Dueñas's birdieosynovitis referral to dr bertram aguilar surgeon/ REFERRAL FAXED TO DR ROMEO OFFICE Essential hypertension stable, will cont nue current regiment Colon cancer screening guaiac negative Depression screening negative screen Anxiety stable, will continu e current regiment Pending Test Test Name Order Date IRON PROFILE 06/14/2024 Future Test Test Name Order Date Complete Blood Count Auto Diff 5 Referrals Referral Date Details 06/14/2024 06/14/2024, PATSY SOLIS, Mahesh Gan Next Appt Details Provider Name:Kamar lynch, 07/16/2024 07:30:00 AM, [address] [place] [address], [address], [place], [place], [phone], Provider Name:Kamar lynch, 06/07/2025 08:00:00 AM, [address] [place] [address], [address], [place], [place], [phone], Provider Name:Kamar lynch, 06/17/2025 04:00:00 PM, [address] [place] [address], [address], [place], [place], [phone], Progress Notes * Randall WILKERSON:1980 (44 yo M)Acc No.[id number]:06/14/2024 Progress Notes Patient:Davon JULIAN Provider:?Kamar Johnson MD :1980???Age:44 Y???Sex:Male Ever e:06/14/2024 Address:[address] [place] [address] [id number] Subjective: * Chief Complaints: * ???1. ANNUAL EXAM. * HPI: ???Depression Screening:?PHQ-9?Little interest or pleasure in doing things?Not at all,?Feeling down, depressed, or hopeless?Not at all,?Trouble falling or staying asleep, or sleeping too much?Not at all,?Feeling tired or having little energy?Not at all,?Poor appetite or overeating?Not at all,?Feeling bad about yourself or that you are a failure, or have let yourself or your family down?Not at all,?Trouble concentrating on things, such as reading the newspaper or watching television?Not at all,?Moving or speaking so slowly that other people could have noticed; or the opposite, being so fidgety or restless that you have been moving around a lot more than usual?Not at all,?Thoughts that you would be better off or of hurting yourself in some way?Not at all,?Total Score?0.?Interpretation and Intervention?Depression Screening Findings?Negative,?Follow-Up for Depression?: review of PHQ-9 found negative result, no follow-up needed.?Communication Needs:?Communication Needs?Does the patient have a hearing impairment?No,?Does the patient have a vision impairment??Yes,?If yes, what is the vision impairment??Glasses,?Does the patient have a cognition impairment??No.?SDOH Questions:?SDOH Questions?In the past year have you been worried about losing housing??No,?In the past year have you or any family members you live with been unable to get any of the following when it was really needed? Check all that apply:?None.?Symptom(s):? patient is a 44 yo male here for annual visit with review of recent labs and follow up of chronic issues. * ROS:?General/Constitutional:?Patient denies?fatigue, headache.?Change in appetite?denies.?Chills?denies.?Fever?denies.?Ophthalmologic:?Blurred vision?denies.?Discharge?denies.?Pain?denies.?ENT:?Patient denies?decreased sense of smell, any loss of taste, sore throat.?Decreased hearing?admits.?Sore throat?denies.?Swollen glands?denies.?Endocrine:?Cold intolerance?denies.?Excessive thirst?denies.?Heat intolerance?denies.?Weight loss?denies.?Respiratory:?Cough?denies.?Shortness of breath at rest?denies.?Shortness of breath with exertion?denies.?Wheezing?denies.?Cardiovascular:?Chest pain at rest?denies.?Chest pain with exertion?denies.?Irregular heartbeat?denies.?Shortness of breath?denies.?Gastrointestinal:?Abdominal pain?denies.?Change in bowel habits?denies.?Diarrhea?denies.?Nausea?denies.?Rectal bleeding?denies.?Vomiting?denies .?Genitourinary:?Blood in urine?denies.?Difficulty urinating?denies.?Frequent urination?denies.?Musculoskeletal:?Patient denies?muscle aches.?Patient complaining of?tnderness in rt thumb.?Painful joints?denies.?Weakness?denies.?Peripheral Vascular:?Patient denies?red and blue toes.?Skin:?Dry skin?denies.?Itching?denies.?Denies?Mole(s),? changes in moles, new moles or any lesions of concern.?Denies?Photosensitivity.?Rash?denies.?Neurologic:?Dizziness?denies.?Fainting?denies.?Headache?denies.? * Medical History:?Colonoscopy 01/07/20 - Dr. Rios (repeat 10 years), Hematochezia, Hematochezia. * Family History:?Father: cecilia barlow 69 yrs, diagnosed with Diabetes, Hypertension.?Mother: alive 67 yrs, diagnosed with Hypertension.?1 brother(s) , 1 sister(s) . 2 daughter(s) . .? mental illness in the family no drug abuse, Denies mental health/substance abuse family history, Denies mental health/substance abuse family history, Denies mental health/substance abuse family history. * Social History:?Tobacco Use:?Tobacco Use/Smoking?Patient is a?nonsmoker,?Additional Findings: Tobacco Non-User?Current non-smoker, currently using no form of tobacco.?Drugs/Alcohol:?Alcohol Screen?Did you have a drink containing alcohol in the past year??Yes,?How often did you have a drink containing alcohol in the past year??Monthly or less (1 point),?How many drinks did you have on a typical day when you were drinking in the past year??1 or 2 drinks (0 point),?How often did you have 6 or more drinks on one occasion in the past year??Never (0 point),?Points?1,?Interpretation?Negative.?Miscellaneous:?Caffeine: yes, frequency:, 1-2 cups per day. Children: yes. Exercise: yes, walks for 20 minutes QD. Home smoke detector use: yes. Housing: owning. Living with: spouse, family. Marital status: single. Occupation: weeks/months/years, works full-time. Pets: cats: dogs:1 dog. Travel outside of the [place]: no. * Medications:?Taking Doxepin HCl 10 MG Capsule 1 capsule at bedtime Orally Once a day , Taking Tadalafil 20 MG Tablet TAKE 1/2 TABLET BY MOUTH ONCE DAILY NEEDED , Taking buPROPion HCl ER (XL) 300 MG Tablet Extended Release 24 Hour 1 tablet in the morning Orally Once a day , Taking Metoprolol Succinate ER 50 MG Tablet Extended Release 24 Hour TAKE ONE TABLET BY MOUTH EVERY DAY , Taking Lisinopril 20 MG Tablet TAKE ONE TABLET BY MOUTH EVERY DAY , Not-Taking/PRN LORazepam 1 MG Tablet 1 tablet as needed Orally prn , Medication List reviewed and reconciled with the patient * Allergies:?N.K.D.A. Objective: * Vitals:?Ht: 64.5, Wt: 234, B CO:39.54, BP:132/84, Wt-k.14. weight is up 10 pounds since 12-01-23. * ???Past Orders: ???Lab:Lipid Panel (Order Da te - 05/29/2024) (Collection Date & Time - 05/29/2024 07:15 AM) ? Value Reference Range ?Triglycerides 155 H <150 - mg/dL ?Cholesterol 137 <200 - m g/dL ?LDL Cholesterol Calculated 71 <100 - mg/dL ?HDL Cholesterol 35 L >40 - mg/dL ???Lab:PSA,Total (Free>4and< 10) (Order Date - 05/29/2024) (Collection Date & Time - 05/29/2024 07:15 AM) ? Value Reference Range ?PSA,Total (Free>4and<10) 0.15 0.00-4.00 - ng/mL ???Lab:UA ClnCatch+Micro w/r flx Cult (Order Date - 05/29/2024) (Collection Date & Time - 05/29/2024 07:15 AM) ? Value Reference Range ?Color Urine Yellow - ?Appearance Urine Clear - ?PH 5.5 5.0-9.0 - ?Glucose Urine UA Negative Neg ative - mg/dL ?Urine Blood Negative Negative - ?Specific [place] - Urine 1.025 1.005-1.025 - ?Urine Protein 300 (3+) A Neg-Tr everardo - mg/dL ?Urine Ketones Negative Negati ve - mg/dL ?Nitrite Urine Negative Negati ve - ?Leukocyte Esterase Urine Negative Negative - ?RBC Urine 0-2 0-2 - /HPF ?WBC Urine 0-5 0-5 - /HPF ?Squamous Epithelial Cell Urine 0-2 0-2 - /HPF ?Bacteria Urine None Seen None Seen - ?Hyaline Casts Urine 3-5 0-2 - /LPF ???Lab:Comprehensive [place]. P adolfo Fast (Order Date - 05/29/2024) (Collection Date & Time - 05/29/2024 07:15 AM) ? Value Reference Range ?Sodium 139 135-145 - mmo l/L ?Bilirubin Total 0.3 0.0- 1.0 - mg/dL ?Aspartate Amino Transferase 32 5-37 - U/L ?Alanine Aminotransferase 33 0-40 - U/L ?Total Protein 6.9 6.5-8. 0 - g/dL ?Albumin Level 3.8 3.5-5. 0 - g/dL ?Alkaline Phosphatase 61 39-117 - U/L ?Potassium 3.8 3.3-5.1 - mmol/L ?Chloride 105 96-108 - mm ol/L ?Carbon Dioxide 25 22-29 - mmol/L ?Anion Gap 13 12-20 - ?Blood Urea Nitrogen 9 9-16 - mg/dL ?Creatinine 0.83 0.5-1.4 - mg/dL ?Estimated Glomerular Filt Rate > 60 - ?Glucose Fasting 116 H 60-9 9 - mg/dL ?Calcium 8.7 8.4-10.2 - m g/dL * Examination: ???General Examination: ?GENERAL APPEARANCE:?well developed, well nourished, in no acute distress.?HEAD:?normocephalic, atraumatic.?EYES:?pupils equal, round, reactive to light and accommodation, sclera non-icteric.?EARS:?normal.?ORAL CAVITY:?mucosa moist.?THROAT:?clear.?NECK/THYROID:?neck supple, full range of motion, no cervical lymphadenopathy, no bruits.?SKIN:?warm and dry, no suspicious lesions.?HEART:?regular rate and rhythm, S1, S2 normal, no murmurs.?LUNGS:?clear to auscultation bilaterally.?ABDOMEN:?soft, nontender, nondistended, bowel sounds present, normal, no organomegaly , no masses palpable.?RECTAL EXAM:?normal tone, no external hemorrhoids, no masses palpable, prostate normal, stool guaiac negative.?MALE GENITOURINARY:?not examined, no testicular mass, no penile lesions or discharge, uncircumcised.?EXTREMITIES:?no clubbing, cyanosis, or edema.?NEUROLOGIC:?nonfocal, motor strength normal upper and lower extremities, sensory exam intact.? Assessment: * Assessment: 1.?Annual physical exam - Z0 0.00 (Primary)???2.?Iron deficiency anemia, unspecified iron deficiency anemia type - D50.9???3.?Morbid obesity - E66.01???4.?De Quervain's tenosynovitis - M65.4???5.?Essential hypertension - I10???6.?Colon cancer screening - Z12.11???7.?Depression screening - Z13.31???8.?Anxiety - F41.9??? Plan: * Treatment: 2.?Iron deficiency anemia, u nspecified iron deficiency anemia type?LAB: IRON PROFILE (Collection Date & Time - 06/15/2024) ?LAB: Complete Blood Count Auto Diff (Ordered for 07/12/2024) Notes: will continue to monitor?? 3.?Morbid obesity? Notes: is going to try the weight loss clinic?? 4.?De Wilfred's tenosynovit is? Notes: referral to dr gan hand surgeon/ REFERRAL FAXED TO DR ROMEO OFFICE? Referral To:Mahesh Gan??Orthopedic Surgery ?Reason:DEQUERVAINS TENOSYNOVITIS 5.?Essential hypertension? Continue Metoprolol Succinate ER Tablet Extended Release 24 Hour, 50 MG, TAKE ONE TABLET BY MOUTH EVERY DAY;?Continue Lisinopril Tablet, 20 MG, TAKE ONE TABLET BY MOUTH EVERY DAY.?? Notes: stable, will contnue current regiment?? 6.?Colon cancer screening? Notes: guaiac negative?? 7.?Depression screening? Notes: negative screen?? 8.?Anxiety? Continue Doxepin HCl Capsule, 10 MG, 1 capsule at bedtime, Orally, Once a day.?? Notes: stable, will continue current regiment?? * Preventive Medicine:? ??Counseling:?Care goal follow-up plan:?Counseling for abnormal BMI provided?Yes,?Above Normal BMI Follow-up?Giving encouragement to exercise.? * * The named appointment provid er may or may not be the originator of this progress note, and it is not deemed complete until electronically signed by the appointment provider. Sign off status: Pending * Provider:?Kamar Johnson MD Date:?0 06/14/2024 Generated for Rehana torres/Roopa/eTechosmitting on:?06/15/2024 12:11 PM EST History and Physical Notes * HPI (History of Present Illness) Category Sub-Category Detail Notes Category Not es Symptom(s) patient is a 44 yo male here for annual visit with review of recent labs and follow up of chronic issues. Depression Screening PHQ-9 Little inte rest or pleasure in doing things: Not at all Feeling down, depressed, or hopeless: No t at all Trouble falling or staying asleep, or sl eeping too much: Not at all Feeling tired or having little energy: N ot at all Poor appetite or overeating: Not at all Feeling bad about yourself o r that you are a failure, or have let yourself or your family down: Not at all Trouble concentrating on thi ngs, such as reading the newspaper or watching television: Not at all Moving or speaking so slowly that other people could have noticed; or the opposite, being so fidgety or restless that you have been moving around a lot more than usual: Not at all Thoughts that you would be b diogo off or of hurting yourself in some way: Not at all Total Score: 0 Interpretation and Intervention Depression Debbie moore Findings: Negative Follow-Up for Depression: : review of PH Q-9 found negative result, no follow-up needed SDOH Questions SDOH Questions In the past year have you been worried about losing housing?: No In the past year have you or any family members you live with been unable to get any of the following when it was really needed? Check all that apply:: None Communication Needs Communication Needs Does the patient have a hearing impairment: No Does the patient have a vision impairmen t?: Yes ?If yes, what is the vision impairment?: Glasses Does the patient have a cognition impair ment?: No Examination Category Sub-Category Detail Notes Category Not es General Examination GENERAL APPEARANCE: well dev eloped, well nourished, in no acute distress HEAD: normocephalic, atrau matic EYES: pupils equal, round, reactive to light and accommodation, sclera non- icteric EARS: normal THROAT: clear NECK/THYROID: neck supple, full ra nge of motion, no cervical lymphadenopathy, no bruits HEART: regular rate and rhy thm, S1, S2 normal, no murmurs LUNGS: clear to auscultatio n bilaterally ABDOMEN: soft, nontender, non distended, bowel sounds present, normal, no organomegaly , no masses palpable NEUROLOGIC: nonfocal, motor stre ngth normal upper and lower extremities, sensory exam intact SKIN: warm and dry, no mechelle picious lesions EXTREMITIES: no clubbing, cyanosi s, or edema MALE GENITOURINARY: not examined, no igl ticular mass, no penile lesions or discharge, uncircumcised RECTAL EXAM: normal tone, no exte rnal hemorrhoids, no masses palpable, prostate normal, stool guaiac negative ORAL CAVITY: mucosa moist Consultation Request Notes Referral Date Referring Provider Referred Provider Not es 06/14/2024 Kamar Johnson, Mahesh Looney TENOSYNOVITIS
--- OUTSIDE RECORDS SUMMARY | 2024-06-15 12:12 | XMS_ITS | Clinical Summary ---
Author Organization [facility] Facility Address [address] [address] Care Team Providers Care Contracts Advisor Name Role Phone Kamar Johnson MD Primary Care Provider [phone] Allergies No known active allergies Medications metoprolol tartrate (LOPRESSOR) 50 MG tablet Take 50 mg by mouth 03/13/2021 Active LORazepam (ATIVAN) 1 MG tablet Take 1 mg by mouth 03/13/2021 Active buPROPion XL (WELLBUTRIN XL) 300 MG 24 hr tablet Take 300 mg by mouth 03/13/2021 Active lisinopril 10 MG tablet Take 2 tablets (20 mg total) by mouth 1 (one) time each day 180 tablet 1 05/09/2023 Active Active Problems Problem Noted Date Diagnosed Date Proteinuria 10/25/2022 Obstructive sleep apnea syndrome 10/19/2022 Internal hemorrhoids 10/19/2022 Essential hypertension 10/19/2022 Erectile dysfunction 10/19/2022 Carpal tunnel syndrome 10/19/2022 Anxiety 10/19/2022 Immunizations Name Administration Dates Next Due Influenza (IM) Preservative Free 03/01/2022,02/20,04/24/2019,03/06/2018 Pfizer SARS-COV-2 04/02/2021,08/21/2020,08/01/19 21 Social History Tobacco Use Types Packs/Day Years Used Date Smoking Tobacco: Never Smokeless Tobacco: Never Tobacco Cessation:Counseling Given: Not Answered Alcohol Use Standard Drinks/Week Comments Never 0 (1 standard drink = 0.6 oz pur e alcohol) Sex and Gender Information Value Date Recorded Sex Assigned at Not on file Legal Sex Male 8:30 AM EST Gender Identity Not on file Sexual Orientation Not on file Last Filed Vital Signs Vital Sign Reading Time Taken Comments Blood Pressure 138/72 12/29/2023 4:10 PM EDT Pulse 88 12/29/2023 4:10 PM EDT Temperature - - Respiratory Rate - - Oxygen Saturation 99% 12/29/2023 4:10 PM EDT Inhaled Oxygen Concentration - - Weight 148 kg (325 lb 6.4 oz) 12/29/2023 4:10 PM EDT Height - - Body Mass Index - - Plan of Treatment Upcoming Encounters Date Type Department Care Team (Late st Contact Info) Description 12/31/2024 4:15 PM EDT Office Visit [facility] [address] [place] [address] Joselo Chanel MD [address] [facility] [address] [place] [address] Health Maintenance Due Date Last Done Comments Hepatitis B Vaccine (1 of 3 - 19+ 3-dose series) 1997 Influenza Vaccine (#1) 2024 2, 03/06/2021, 04/24/2019, Additional history exists Pneumococcal Vaccine: Pediatrics (0 to 5 Years) and At-Risk Patients (6 to 64 Years) Aged Out No longer eligible based on patient's age to complete this topic Care Teams Contracts Advisor Relationship Specialty Start Date End Date Kamar Johnson MD [address] [place] [address] [id number] [place] PCP - General Internal Medicine 06/08/22
== END 2024-06-15 00:01 | disposition home or self-care (01) ==
LOC: HO.LNP
PROVIDERS: Visit Provider Internal Medicine
DX: D50.9 Iron deficiency anemia, unspecified (principal)
CPT/HCPCS: 83540

== ENCOUNTER 2024-07-16 07:30 | Outpatient (REF) | payer BC, SELFPAY ==
[2024-07-16 10:58] LABS: MANUAL DIFF FLAG NO
[2024-07-16 11:06] LABS: Basophils Absolute Auto 0.1 X10*3/uL (0.0-0.2); Basophils Percent Auto 0.7 % (0-2); Eosinophils Absolute Auto 0.3 X10*3/uL (0.0-0.4); Eosinophils Percent Auto 2.8 % (0-4); Hematocrit 33.9 % (42.0-52.0); Hemoglobin 10.1 g/dl (14.0-18.0); Imm Gran Abs Auto 0.08 X10*3/uL (0.00-0.03); Imm Gran Pct Auto 0.7 % (0.0-0.4); Lymphocytes Absolute Auto 4.2 X10*3/uL (1.2-4.9); Lymphocytes Percent Auto 34.8 % (20-40); Mean Corpuscular HGB Conc 29.8 g/dl (31.0-36.0); Mean Corpuscular Hemoglobin 22.2 pg (27.0-33.0); Mean Corpuscular Volume 74.5 fL (80.0-98.0); Mean Platelet Volume 9.3 fL (9.4-12.4); Monocytes Absolute Auto 1.2 X10*3/uL (0.1-1.2); Monocytes Percent Auto 9.7 % (2-11); Neutrophils Absolute Auto 6.2 x10*3/uL (2.0-8.3); Neutrophils Percent Auto 51.3 % (45-73); Platelet Count 361 X10*3/uL (160-400); Red Blood Count 4.55 X10*6/uL (4.60-5.80); Red Cell Distribution Width 18.1 % (11.0-16.0); White Blood Count 12.2 X10*3/uL (4.8-10.8)
--- OUTSIDE RECORDS SUMMARY | 2024-07-16 12:31 | XMS_ITS ---
Author Organization Kamar Johnson MD Address [address] [place] [phone] Care Team Providers Care Manager Process Improvement Name Role Phone Kamar Johnson Primary Care Provider REASON FOR VISIT referrals Encounters Encounter Location Date Provider Diagnosis Kamar Johnson MD [address] [facility] [address] [place] [phone] 06/28/2024 Kamar Johnson Plan Of Treatment Next Appt Details Provider Name:Kamar Oseguera ier, 06/07/2025 08:00:00 AM, [address] [place] [address], [place] [address], [place], [place], [phone], Provider Name:Kamar lynch, 06/17/2025 04:00:00 PM, [address] [place] [address], [place] [address], [place], [place], [phone], Progress Notes * Dominic WILKERSONOB:1980 (44 yo M)Acc No.[id number]:06/28/2024 Patient:?Davon WILKERSON :1980???Age:44 Y???Sex:Male Address[facility] [place] [address] * true * Date:? Generated for Printi ng/Fajazmineg/eTransmitting on:?07/16/2024 12:31 PM EST
--- OUTSIDE RECORDS SUMMARY | 2024-07-16 12:32 | XMS_ITS ---
Author Organization Kamar Johnson MD Address [address] [place], [place] [phone] Care Team Providers Care Net Technical Architect Name Role Phone Kamar Johnson Primary Care Provider Allergies No Known Allergies Results Component Value Reference Range Notes Occult Blood, Stool, Guaiac Reviewed date:06/19/2024 10:40:56 AM Interpretation:Negative Performing Lab: Notes/Report: Negative Occult Blood, Stool, Guaiac Neg IRON PROFILE Reviewed date:06/15/2024 01:29:48 PM Interpretation: Performing Lab:[facility], [address] [place] [phone] Notes/Report: Iron 37 45-160 mcg/dL Total Iron [...] Gan Referred Provider Specialty Orthopedic S urgery General Notes Debbi Evans 07/05/2024 02:03:50 PM >OFFICE NOTES RECD FORM 06/26/24 VISIT Referral Priority Routine Referral Appointment Date 06/26/2024 REASON FOR VISIT ANNUAL EXAM Medications Medication [...] Problem Status W/U Status Risk Notes Problem [id number] Iron deficiency anemia, unspecified iron deficiency anemia type (D50.9) Active confirmed Problem 107135716 Morbid obesity (E66.01) Active confirmed Vital Signs Blood pressure systolic 132 mm Hg 06/14/19 25 Blood pressure diastolic 84 mm Hg 025 Height 64.5 in 06/14/2024 Weight 234 lbs 06/14/2024 BMI 39.54 kg/m2 06/14/2024 weight is up 10 pounds since 12-01-23 Encounters Encounter Location Date Provider Diagnosis Kamar Johnson MD [address] [place] [address] [address] [place], [place] [phone] 06/14/2024 Kamar Johnson Iron deficiency anemia, unspecified [...] to try the weight loss clinic 06/14/2024 Alarconosynovitis (ICD-10 - M65.4) referral to dr bertram [...] going to try the weight loss clinic Alarconosynovitis referral to dr bertram aguilar surgeon/ REFERRAL FAXED TO DR ROMEO OFFICE Essential hypertension stable, will cont nue current regiment Colon cancer screening guaiac negative Depression screening negative screen Anxiety stable, will continu e current regiment Pending Test Test Name Order Date Complete Blood Count Auto Diff Referrals Referral Date Details 06/14/2024 06/14/2024, Mahesh MATHUR Next Appt Details Provider Name:Kamar lynch, 06/07/2025 08:00:00 AM, [address] [place] [address], [address], [place], [place], [phone], Provider Name:Kamar lynch, 06/17/2025 04:00:00 PM, [address] [place] [address], [address], [place], [place], [phone], Progress Notes * Dominic WILKERSONOB:1980 (44 yo M)Acc No.[id number]:06/14/2024 Progress Notes Patient:?Davon WILKERSON Provider:?Kamar Johnson MD :1980???Age:44 Y???Sex:Male Ever e:06/14/2024 Address:[address] [place], [place] [address] [place], [place] Subjective: * Chief Complaints: * ???ANNUAL EXAM * HPI: ???Depression Screening:?PHQ-9?Little interest or pleasure [...] or any lesions of concern.?Denies?Photosensitivity.?Rash?denies.?Neurologic:?Dizziness?denies.?Fainting?denies.?Headache?denies.? * Medical History:? * Surgical History:? * Hospitalization/Major Diagno stic Procedure:? * Family History:?Father: cecilia e 69 yrs, diagnosed with Diabetes, Hypertension.?Mother: alive [...] outside of the [place]: no. * Medications:?TakingDoxepin H Cl 10 MG Capsule 1 capsule at bedtime Orally Once a day Tadalafil 20 MG Tablet TAKE 1/2 TABLET BY MOUTH ONCE DAILY NEEDED buPROPion HCl ER (XL) 300 MG Tablet Extended Release 24 Hour 1 tablet in the morning Orally Once a day Metoprolol Succinate ER 50 MG Tablet Extended Release 24 Hour TAKE ONE TABLET BY MOUTH EVERY DAY Lisinopril 20 MG Tablet TAKE ONE TABLET BY MOUTH EVERY DAY Taking Doxepin HCl 10 MG Capsule 1 capsule at bedtime Orally Once a day Taking Tadalafil 20 MG Tablet TAKE 1/2 TABLET BY MOUTH ONCE DAILY NEEDED Taking buPROPion HCl ER (XL) 300 MG Tablet Extended Release 24 Hour 1 tablet in the morning Orally Once a day Taking Metoprolol Succinate ER 50 MG Tablet Extended Release 24 Hour TAKE ONE TABLET BY MOUTH EVERY DAY Taking Lisinopril 20 MG Tablet TAKE ONE TABLET BY MOUTH EVERY DAY Not-Taking/PRNLORazepam 1 MG Tablet 1 tablet as needed Orally prn Medication List reviewed and reconciled with the patientNot-Taking/PRN LORazepam 1 MG Tablet 1 tablet as needed Orally prn Medication List reviewed and reconciled with the patient * Allergies:?N.K.D.A.yes[Aller gies Verified] Objective: * Vitals:?Ht: 64.5, Wt: 234, B PA:39.54, BP:132/84, Wt-k.14. weight is up 10 pounds [...] mg/dL ?Urine Blood Negative Negative - ?Specific [place] - Urine 1.025 1.005-1.025 - ?Urine Protein [...] Casts Urine 3-5 0-2 - /LPF ???Lab:[facility]. P adolfo Fast (Order Date - 05/29/2024) [...] stable, will contnue current regiment?? 6.?Colon cancer screening?LAB: Occult Blood, Stool, Guaiac (Collection Date & Time - 06/15/2024)?Negative ? Value Reference Range ?Occult Blood, Stool, Guaiac Neg Notes: guaiac negative??7.?Depression screening? Notes: negative screen??8.?Anxiety? Continue Doxepin HCl Capsule, 10 MG, 1 capsule at bedtime, Orally, Once a day.?? Notes: stable, will continue current regiment?? * Procedure Codes:?84955 TEST FOR BLOOD, FECES * Preventive Medicine:? ??Counseling:?Care goal follow-up plan:?Counseling for abnormal BMI provided?Yes,?Above Normal BMI Follow-up?Giving encouragement to exercise.? * * Sign off status: Completed true * Provider:?Kamar Johnson MD Date:?0 06/14/2024 Generated for Rehana torres/Roopa/Charanjit on:?07/16/2024 12:32 PM EST History and Physical Notes * [...] or edema MALE GENITOURINARY: not examined, no gil ticular mass, no penile lesions or discharge, uncircumcised RECTAL EXAM: normal tone, no exte rnal hemorrhoids, no masses palpable, prostate normal, stool guaiac negative ORAL CAVITY: mucosa moist Consultation Request Notes Referral Date Referring Provider Referred Provider Not es 06/14/2024 Kamar Johnson, Mahesh Looney TENOSYNOVITIS
--- OUTSIDE RECORDS SUMMARY | 2024-07-16 12:32 | XMS_ITS ---
Author Organization Kamar Johnson MD Address [address] [place], [place] [address] Care Team Providers Care Program Assistant Name Role Phone Kamar Johnson Primary Care Provider [phone] Results Component Value Reference Range Notes Complete Blood Count Auto Di ff (Not yet reviewed by provider) Interpretation: Performing Lab:[facility], [address] [place] [phone] Notes/Report: White Blood Count 12.2 4.8-10.8 X10*3/uL [...] Location Date Provider Diagnosis Kamar Johnson MD [address] [place] [address] [place] [phone] 07/16/2024 Kamar Johnson Iron deficiency anemia, unspecified iron deficiency anemia type D50.9 Assessments Encounter Date Diagnosis (ICD Code) Assessment Notes Treatment Notes Treatment Clinical Notes Section Notes 07/16/2024 Iron deficiency anemia, unspecified iron deficiency anemia type (ICD-10 - D50.9) Plan Of Treatment Pending Test Test Name Order Date Complete Blood Count Auto Diff Next Appt Details Provider Name:Kamar Oseguera cris, 06/07/2025 08:00:00 AM, [address] [place] [address], [address], [phone], Provider Name:Kamar Juan Tylerjamaica cris, 06/17/2025 04:00:00 PM, [address] [place] [address], [place] [address], [place], [place], [phone], Progress Notes * Dominic WILKERSONOB:1980 (44 yo M)Acc No.[id number]:07/16/2024 Progress Note Patient:?Davon WILKERSON Provider:?Kamar Johnson MD :1980???Age:44 Y???Sex:Male Ever e:07/16/2024 Address:[address] [place], [place] [phone] Subjective: * Chief Complaints: * ???1. CBC AUTO DIFF. * Medical History:? Objective: * Vitals:? Assessment: * Assessment: 1.?Iron deficiency anemia, u nspecified iron deficiency anemia type - D50.9??? Plan: * Treatment: * * The named appointment provid er may or may not be the originator of this progress note, and it is not deemed complete until electronically signed by the appointment provider. Sign off status: Pending * Provider:?Kamar Johnson MD Date:?0 07/16/2024 Generated for Rehana torres/Roopa/Kristaitting on:?07/16/2024 12:31 PM EST
--- OUTSIDE RECORDS SUMMARY | 2024-07-16 12:32 | XMS_ITS | Clinical Summary ---
Author Organization [facility] Facility Address [address] [address] Care Team Providers Care Production Roustabout Name Role Phone Kamar Johnson MD Primary Care Provider Allergies No known active allergies Medications metoprolol [...] Care Team (Late st Contact Info) Description 12/24/2024 4:15 PM EDT Office Visit [facility] [address] [place] [address] Joselo Chanel MD [address] [facility] [address] [place] [address] Health Maintenance Due Date Last Done Comments Hepatitis B Vaccine (1 of 3 - 19+ 3-dose series) 1997 Influenza Vaccine (#1) 2024 2, 03/06/2021, 04/24/2019, Additional history exists Pneumococcal Vaccine: Pediatrics (0 to 5 Years) and At-Risk Patients (6 to 64 Years) Aged Out No longer eligible based on patient's age to complete this topic Care Teams Production Roustabout Relationship Specialty Start Date End Date Kamar Johnson MD [address] [place] [address] [address] [place] PCP - General Internal Medicine 06/08/22
--- OUTSIDE RECORDS SUMMARY | 2024-07-16 12:32 | XMS_ITS | Patient Health Record ---
Author Organization Kamar Johnson MD Address [address] [place], [place] [phone] Care Team Providers Care Battery Charger Conveyor Line Name Role Phone Kamar Johnson Primary Care Provider Allergies No Known Allergies Results Component Value Reference Range Notes Complete Blood Count Auto Di ff Reviewed date:06/15/2024 03:11:24 PM Interpretation:see back 06-14-2024 Performing Lab:[facility], [address] [place] [phone] Notes/Report: White Blood Count 11.2 4.8-10.8 X10*3/uL [...] NRBC Abs Auto 0.000 0.0-0.012 X10*3/uL Comprehensive Clio. Panel Fa st Reviewed date:05/29/2024 12:55:13 PM Interpretation: Performing Lab:[address] [phone] Notes/Report: Sodium 139 135-145 mmol/L Potassium 3.8 [...] Panel Reviewed date:05/29/2024 12:38:57 PM Interpretation: Performing Lab:[address] [phone] Notes/Report: Triglycerides 155 <150 mg/dL Desirable Triglyceride: [...] (Free>4and<10) Reviewed date:05/29/2024 12:38:49 PM Interpretation: Performing Lab:[facility], [address] [place] [phone] Notes/Report: PSA,Total (Free>4and<10) 0.15 0.00-4.00 ng/mL A [...] t Reviewed date:05/29/2024 04:25:59 PM Interpretation: Performing Lab:[facility], [address] [place] [phone] Notes/Report: Urine, Clean Catch Color Urine Yellow Appearance Urine Clear PH 5.5 5.0-9.0 Glucose Urine UA Negative Negative mg/dL Urine Blood Negative Negative Specific [place] - Urine 1.025 1.005-1.025 Urine Protein 300 (3+) Neg-Trace mg/dL Urine Ketones Negative Negative mg/dL Nitrite Urine Negative Negative Leukocyte Esterase Urine Negative Negative RBC Urine 0-2 0-2 /HPF WBC Urine 0-5 0-5 /HPF Squamous Epithelial Cell Urine 0-2 0-2 /HPF Bacteria Urine None Seen None Seen Hyaline Casts Urine 3-5 0-2 /LPF Occult Blood, Stool, Guaiac Reviewed date:06/19/2024 10:40:56 AM Interpretation:Negative Performing Lab: Notes/Report: Negative Occult Blood, Stool, Guaiac Neg IRON PROFILE Reviewed date:06/15/2024 01:29:48 PM Interpretation: Performing Lab:[facility], [address] [place] [phone] Notes/Report: Iron 37 45-160 mcg/dL Total Iron Binding Capacity 341 228-428 mcg/d L Percent Iron Saturation 11 15-50 % Unsaturated Iron Binding 304 Complete Blood Count Auto Di ff (Not yet reviewed by provider) Interpretation: Performing Lab:[facility], [address] [place] [phone] Notes/Report: White Blood Count 12.2 4.8-10.8 X10*3/uL [...] X10*3/uL NRBC Abs Auto 0.000 0.0-0.012 X10*3/uL Reason For Referral Reason DEQUERVAINS TENOSYNO VITIS [...] Referral Priority Routine Referral Appointment Date 06/26/2024 Medications Medication SIG (Take, Route, Frequency, Duration) [...] TAKE 1/2 TABLET BY M OUTH ONCE A DAY NEEDED for 60 Active Immunizations Vaccine Route [...] W/U Status Risk Notes Problem Erectile dysfunction (998876841) Erectile dysfunction (N52.9) Active confirmed Problem 16961193 Anxiety (F41.9) Active confirmed Problem 80654099 Essential hypertension (I10) Active confirmed Problem 253655533 Morbid obesity (E66.01) Active confirmed Problem 88735098 Iron deficiency anemia, unspecified iron deficiency anemia type (D50.9) Active confirmed Problem 26449581 Internal hemorrhoids (K64.8) Active confirmed Problem Obstructive sleep apnea syndrome (27262908) OMARI (obstructive sleep apnea) (G47.33) Active confirmed Problem 91610076076890048 Carpal tunnel syndrome on both sides (G56.03) [...] Kamar Johnson MD [address] [place] [phone] 05/29/2024 Kamar Johnson Blood tests for routine general physical examination Z00.00 and Essential hypertension I10 Kamar Johnson MD [address] [place] [phone] 07/16/2024 Kamar Johnson Iron deficiency anemia, unspecified iron deficiency anemia type D50.9 Kamar Johnson MD [address] [place] [phone] 12/01/2023 Kamar Johnson Essential hypertension I10 ; Anxiety F41.9 and OMARI (obstructive sleep apnea) G47.33 Kamar Johnson MD [address] [place] [phone] 06/14/2024 Kamar Johnson Iron deficiency anemia, unspecified iron deficiency anemia type D50.9 ; Annual physical exam Z00.00 ; Morbid obesity E66.01 ; De Quervain's tenosynovitis M65.4 ; Essential hypertension I10 ; Colon cancer screening Z12.11 ; Depression screening Z13.31 and Anxiety F41.9 Kamar Johnson MD [address] [place] [phone] 06/28/2024 Kamar Johnson Assessments Encounter Date Diagnosis (ICD Code) Assessment Notes Treatment Notes Treatment Clinical Notes Section Notes 05/29/2024 Blood tests for routine general physical examination (ICD-10 - Z00.00) 05/29/2024 Essential hypertension (ICD-10 - I10) 07/16/2024 Iron deficiency anemia, unspecified iron deficiency anemia type (ICD-10 - D50.9) 12/01/2023 Essential hypertension (ICD-10 - I10) doing well, will continue current regiment 12/01/2023 Anxiety (ICD-10 - F41.9) doing well on meds, will continue current regiment 06/14/2024 Iron deficiency anemia, unspecified iron deficiency anemia type (ICD-10 - D50.9) will continue to monitor 06/14/2024 Annual physical exam (ICD-10 - Z00.00) labs reviewed and discussed with patient 12/01/2023 OMARI (obstructive sleep apnea) (ICD-10 - G47.33) using nightly. 06/14/2024 Morbid obesity (ICD-10 - E66.01) is [...] (EKG) 06/07/2019 Complete Blood Count Auto Diff 5 Next Appt Details Provider Name:Kamar Oseguera ier, 06/07/2025 08:00:00 AM, [address] [place] [address], [address], [place], [place], [phone], Provider Name:Kamar Oseguera ier, 06/17/2025 04:00:00 PM, [address] [place] [address], [address], [place], [place], [phone], Insurance Providers Payer Name Payer Address Payer Phone Subscriber Number Group Number Insured Name Patient Relationship to Insured Coverage Start Date Coverage End Date [employer] [facility] [address] [place], [place] [phone] [id number] Davon Wilkerson Self - patient is the insured Medical (General) History Medical History History ICD Code Colonoscopy 01/07/20 - Dr. Rios (repeat 10 years) Hematochezia K92.1 Hematochezia
== END 2024-07-16 07:31 | disposition home or self-care (01) ==
LOC: HO.LNP 07:30
PROVIDERS: Visit Provider Internal Medicine
DX: D50.9 Iron deficiency anemia, unspecified (principal)
CPT/HCPCS: 85025

== ENCOUNTER 2024-08-24 16:20 | Outpatient (AMB) | payer BC, SELFPAY ==
--- NOTE | 2024-08-24 12:34 | A.OFFPSYCH_ITS ---
Intake Intake Visit Reasons: depression Allergies No Known Allergies Allergy (Unverified 04/17/24 15:54) Medication List - Last Reconciled 08/24/24 by Jimy Maldonado MD bupropion HCl XL 300 mg PO DAILY doxepin 10 mg PO BEDTIME PRN 30 days lisinopril 20 mg PO DAILY lorazepam 0.5 - 1 mg (0.5 - 1 x 1 mg) PO DAILY PRN metoprolol succinate ER 50 mg PO DAILY tirzepatide (weight loss) (Zepbound) mg subcut HPI- Psychiatric Chief Complaint: depression HPI Narrative: Patient seen psychiatric follow-up on telehealth appointment. Patient's mood has been stable he has a number of different coping strategies has not needed to take lorazepam he is on a GLP 1 inhibitor. And this has been quite helpful no complaints of side effects. 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 Past Psychiatric History: Past history of depression intermittent panic attacks Mental Status Exam Mental Status Exam Narrative: Mental Status Exam Narrative: Appearance: Casually dressed Behavior: Cooperative appropriate psychomotor: Within normal limits Speech: Normal volume and prosody Thought proccess logical and goal-directed Thought content: Future oriented Mood: Euthymic Affect: Appropriate to mood full affect SI:denies HI:denies VH/AH:none Delusions: None Insight/judgment: Good insight and judgment Memory/cog: Intact Telehealth Telehealth Location of provider rendering services: practice address Location of patient: address on file Patient Identification confirmed using: Name, : Yes Telehealth method: video Patient verbally consented to treatment: Yes Minutes spent on Phone/Video with Pt.: 15 Assessment and Plan Assessment & Plan (1) Major depression, recurrent, full remission: Status: Acute Code(s): F33.42 - Major depressive disorder, recurrent, in full remission (2) Generalized anxiety disorder: Status: Acute Code(s): F41.1 - Generalized anxiety disorder Plan Patient seen psychiatric follow-up patient's mood stable no significant depressive episodes does try to do relaxation 2 times a day continues on Wellbutrin has not needed to use lorazepam Counseling and coordination of Care Details: I spent [] minutes reviewing the record, seeing the patient and documenting in the medical record. Counseling provided to the patient/caregiver as outlined below. Addressed patient/caregiver concerns regarding current medication regime including effective adherence. Addressed patient/caregiver concerns regarding diagnosis and prognosis including accuracy of diagnosis, prognosis over time, impact of diagnosis. Addressed patient/caregiver concerns regarding impact of recent stressors. 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
--- OUTSIDE RECORDS SUMMARY | 2024-08-24 17:02 | XMS_ITS ---
Author Organization [facility] Address [address] [place] [address] Care Team Providers Care Food And Beverage Order Clerk Name Role Phone Kamar Johnson Primary Care Provider UnavailCHANDLER Pereira Unavailable [phone] REASON FOR VISIT PA-ZEPBOUND Encounters Encounter Location Date Provider Diagnosis [facility] [place] [address] 07/25/2024 CHANDLER BELTRÁN PLAN OF TREATMENT Next Appt Details Provider Name:CHANDLER Thacker, 09/20/2024 08:45:00 AM, [address], [address], [place], [address], Progress Notes * Davon WILKERSON KDOB: [birth year] (44 yo M)Acc No.[id number]:07/25/2024 Patient:??Davon WILKERSON :1980?Age:44 Y?Sex:Ayad langston Address:[address] [place] [address] * true * Date:??
--- OUTSIDE RECORDS SUMMARY | 2024-08-24 17:02 | XMS_ITS ---
Author Organization Kamar Johnson MD Address [address] [place] [address] [place] [phone] Care Team Providers Care Sheriff Sergeant Name Role Phone Kamar Johnson Primary Care Provider REASON FOR VISIT referrals Encounters Encounter Location Date Provider Diagnosis Kamar Johnson MD [address] [place] [address] [place] [phone] 06/28/2024 Kamar Johnson Plan Of Treatment Next Appt Details Provider Name:Kamar lynch, 09/06/2024 07:30:00 AM, [address] [place] [address], [address], [phone], Provider Name:Kamar lynch, 09/13/2024 01:30:00 PM, [address] [place] [address], [address], [phone], Provider Name:Kamar lynch, 06/07/2025 08:00:00 AM, [address] [place] [address], [address], [phone], Provider Name:Kamar lynch, 06/17/2025 04:00:00 PM, [address] [place] [address], [address], [phone], Progress Notes * Dominic WILKERSONOB:1980 (44 yo M)Acc No.[id number]:06/28/2024 Patient:?Davon WILKERSON :1980???Age:44 Y???Sex:Male Address:[address] [place] [address] [place], [address] * true * Date:? Generated for Rehana torres/Roopa/Kristaitting on:?08/24/2024 05:02 PM EDT
--- OUTSIDE RECORDS SUMMARY | 2024-08-24 17:03 | XMS_ITS ---
Author Organization Kamar Johnson MD Address [address] [place] [phone] Care Team Providers Care Counterintelligence Analyst Name Role Phone Kamar Johnson Primary Care Provider Allergies No Known Allergies Reason For Referral [...] 03:01:21 PM >per office being review by Dr. Rios Referral Priority Routine REASON FOR VISIT 2 week/ must see [...] Signs Blood pressure systolic 190 mm Hg 03/10/20 25 Blood pressure diastolic 92 mm Hg 025 Height 64.5 in 07/30/2024 Weight 334 lbs 07/30/2024 BMI 56.44 kg/m2 07/30/2024 Encounters Encounter Location Date Provider Diagnosis Kamar Johnson MD [address] [place] [phone] 07/30/2024 Kamar Johnson Iron deficiency anemia, unspecified [...] Up: 6 Weeks, Reason: Provider Name:Kamar lynch, 09/06/2024 07:30:00 AM, [address] [place] [address], [address], [phone], Provider Name:Kamar lynch, 09/13/2024 01:30:00 PM, [address] [place] [address], [address], [phone], Provider Name:Kamar lynch, 06/07/2025 08:00:00 AM, [address] [place] [address], [address], [phone], Provider Name:Kamar lynch, 06/17/2025 04:00:00 PM, [address], [address], [place], [phone], Progress Notes * Dominic WILKERSONOB:1980 (44 yo M)Acc No.[id number]:07/30/2024 Patient:?Davon WILKERSON Provider:?Kamar Johnson MD :1980???Age:44 Y???Sex:Male Ever e:07/30/2024 Address:[address] [place] [address] [facility] [id number] Subjective: * Chief Complaints: * ???2 week/ must see labs ane jesus alberto * HPI: ???Symptom(s):?patient is a 44 yo male here for 2 week follow up visit,? has been seeing stools with tinting red, her to discuss recent blood work. * ROS:?General/Constitutional:?Denies?Chills.?Denies?Fatigue.?Denies?Fever.?Denies?Headache.?ENT:?Patient denies?decreased sense of smell, any loss of taste, sore throat.?Denies?Sore throat.?Respiratory:?Denies?Cough.?Denies?Shortness of breath at rest.?Denies?Shortness of breath with exertion.?Gastrointestinal:?Denies?Diarrhea.?Denies?Nausea.?Musculoskeletal:?Patient denies?muscle aches.?Peripheral Vascular:?Patient denies?red and blue toes.? * Medical History:? * Surgical History:? * Hospitalization/Major Diagno stic Procedure:? * Medications:?TakingZepbound 2.5 MG/0.5ML Solution Auto-injector 0.5 mL Subcutaneous [...] gies Verified] Objective: * Vitals:?Ht: 64.5, Wt: 334, B CO:56.44, BP:190/92, Repeat BP:120/86, Wt-k.5. * Examination: ???General Examination: ?GENERAL APPEARANCE:?alert, well hydrated, in no distress.?HEAD:?normocephalic.?SKIN:?good turgor.?HEART:?no murmurs, rubs, gallops, regular rate and rhythm.?LUNGS:?no wheezes, rales, rhonchi, good air movement, clear to auscultation bilaterally.? Assessment: * Assessment: 1.?Iron deficiency anemia, u nspecified iron deficiency anemia type - D50.9 (Primary)???2.?Essential hypertension - I10??? Plan: * Treatment: 2.?Essential hypertension? Continue Metoprolol Succinate ER Tablet Extended Release 24 Hour, 50 MG, TAKE ONE TABLET BY MOUTH EVERY DAY;?Continue Lisinopril Tablet, 20 MG, TAKE ONE TABLET BY MOUTH EVERY DAY.?? Notes: doing well?? * Procedure Codes:? * Follow Up:?6 Weeks * * Sign off status: Completed true * Provider:?Kamar Johnson MD Date:?0 07/30/2024 Generated for Rehana torrse/Roopa/eTechosmitting on:?08/24/2024 05:03 PM EDT History and Physical Notes * [...]
--- OUTSIDE RECORDS SUMMARY | 2024-08-24 17:03 | XMS_ITS | Patient Health Record ---
Author Organization 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 01) Referred Provider Kamar Johnson Referred Provider Specialty Weight Manag ement Referral Priority Routine MEDICATIONS Medication SIG (Take, Route, Frequency, Duration) Notes Start Date End Date Status buPROPion HCl ER (XL) 300 MG 1 tablet in the morning Orally Once a day Active Metoprolol Succinate ER 50 MG 1 tablet Orally Once a day A ctive Tadalafil 20 MG 1/2 tablet as needed Orally Once a day Active Zepbound 2.5 MG/0.5ML Inject 2.5mg Subcu taneous weekly for 30 days Active Lisinopril 20 MG 1 tablet Orally Once a day Active LORazepam 1 MG 1 tablet at bedtime as needed Orally Once a day Active Doxepin HCl 10 MG 1 capsule at bedtime Orally Once a day Active PROBLEMS Problem Type ICD Code Onset Dates Problem Status W/U Status Risk SNOMED Code Notes Problem Essential hypertension (I10) Active confirmed 15278539 Problem Morbid obesity (E66.01) Active confirmed Morbid obesity (165219968) Problem BMI 50.0-59.9, adult (Z68.43) Active confirmed 453313948 Problem Iron deficiency anemia secondary to inadequate dietary iron intake (D50.8) Active confirmed 838368495 Problem Anxiety, generalized (F41.1) Active confirmed 00488743 Problem 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) Active confirmed 514530 VITAL SIGNS Heart Rate 89 /min 08/21/2024 Blood pressure diastolic 78 mm Hg 08/21/2024 Oximetry 98 % 08/21/2024 Height 64 in 08/21/2024 Blood pressure systolic 126 mm Hg 08/21/2024 Weight 312 lbs 08/21/2024 BMI 53.55 kg/m2 08/21/2024 Encounters Encounter Location Date Provider Diagnosis [address] [place] [address] 07/25/2024 CHANDLER BELTRÁN Morbid obesity E66.0 1 ; BMI 50.0-59.9, adult Z68.43 ; Essential hypertension I10 and Nutritional counseling Z71.3 [address] [place] [address] 08/21/2024 CHANDLER BELTRÁN Morbid obesity E66.0 1 ; BMI 50.0-59.9, adult Z68.43 ; Essential hypertension I10 and Nutritional counseling Z71.[address] [facility] [address] [facility] [address] [place] [address] 07/25/2024 CHANDLER BELTRÁN ASSESSMENTS Encounter Date Diagnosis Assessment Notes Treatment Notes Treatment Clinical Notes Section Notes 07/25/2024 Morbid obesity (ICD-10 - E66.01) Patient was reassured and welcomed to the practice. Discussed [facility] holistic and medical approach to weight loss with emphasis on lifestyle modification. Patient is educated that a healthy lifestyle aids in combating obesity as well as reducing the risk of developing obesity-related medical complications including but not limited to diabetes and cardiovascular disease. Detailed education provided about taking steps to initiate sustainable lifestyle changes including incorporating regular physical activity, making healthy diet choices, and prioritizing mental health. Information provided about literature including The Food Rules by Coy Sifuentes and Eat Fat Get Lean by Dr Lv Rodriguez. Handouts including lifestyle checklist, protein content of food, low calorie snacks, and cholesterol information sheet provided. Diagnostic testing/ SECA scale offered. Discussed the importance of regular SECA scale measurements to ensure healthy weight loss. 07/25/2024: Weight: 327, BMI: 56. Reviewed SECA/goals for implementing sustainable lifestyle changes. Patient is encouraged to increase physical activity, goal 8-10k steps/day. Also discussed the importance of strength training with proper safety/body mechanics for maintenance of muscle mass/bone health. Patient encouraged to drink 60-80oz water/day. Reviewed nutrition, recommending food diary x 1 week to ensure adequate caloric/protein intake. Goal of 80-100g protein/day. Reviewed risks, benefits, and side effects of weight management medications including phentermine, Topamax, Contrave, metformin, and GLP-1 agonist. Patient interested in GLP-1 agonist Zepbound. Denies personal/family history of medullary thyroid cancer/M EN syndrome. Rx for Zepbound 2.5 mg SC weekly sent to pharmacy. Reviewed proper use, administration, and expectations for PA process/insurance coverage. After consultation and careful review of medical history, this patient would benefit from Zepbound based off of the following criteria met: Patient is over the age of 16 with a BMI of 56. Additional comorbidities include HTN, elevated TG. Patient has trialed other methods of weight loss including Weight Watchers, Noom, and improving diet and exercise without success. This medication is prescribed by or in consultation with a board-certified obesity and weight management physician (Dr. Enedelia Gaines or Dr. Sandy Gaines). All questions answered to the patient's satisfaction. Patient demonstrates understanding of diagnosis and treatments discussed. Follow-up in 4 weeks, sooner should any questions/concerns arise. Case discussed with collaborating physician Joslyn Gaines who has reviewed the assessment/plan. Chart, medications, labs, and vital signs reviewed. Dictation completed with the use of [employer] voice recognition software, prone to medical misidentifications and grammatical errors. All errors are unintentional. Although the practitioner does try to identify and correct errors, some may be present. Please do not hesitate to contact the practitioner for clarification. Total time was 60 minutes spent with >50% on coordination of care and patient education. 07/25/2024 BMI 50.0-59.9, adult (ICD-10 - Z68.43) Patient was reassured and welcomed to the practice. Discussed [facility] holistic and medical approach to weight loss with emphasis on lifestyle modification. Patient is educated that a healthy lifestyle aids in combating obesity as well as reducing the risk of developing obesity-related medical complications including but not limited to diabetes and cardiovascular disease. Detailed education provided about taking steps to initiate sustainable lifestyle changes including incorporating regular physical activity, making healthy diet choices, and prioritizing mental health. Information provided about literature including The Food Rules by Coy Sifuentes and Eat Fat Get Lean by Dr Lv Rodriguez. Handouts including lifestyle checklist, protein content of food, low calorie snacks, and cholesterol information sheet provided. Diagnostic testing/ SECA scale offered. Discussed the importance of regular SECA scale measurements to ensure healthy weight loss. 07/25/2024: Weight: 327, BMI: 56. Reviewed SECA/goals for implementing sustainable lifestyle changes. Patient is encouraged to increase physical activity, goal 8-10k steps/day. Also discussed the importance of strength training with proper safety/body mechanics for maintenance of muscle mass/bone health. Patient encouraged to drink 60-80oz water/day. Reviewed nutrition, recommending food diary x 1 week to ensure adequate caloric/protein intake. Goal of 80-100g protein/day. Reviewed risks, benefits, and side effects of weight management medications including phentermine, Topamax, Contrave, metformin, and GLP-1 agonist. Patient interested in GLP-1 agonist Zepbound. Denies personal/family history of medullary thyroid cancer/M EN syndrome. Rx for Zepbound 2.5 mg SC weekly sent to pharmacy. Reviewed proper use, administration, and expectations for PA process/insurance coverage. After consultation and careful review of medical history, this patient would benefit from Zepbound based off of the following criteria met: Patient is over the age of 16 with a BMI of 56. Additional comorbidities include HTN, elevated TG. Patient has trialed other methods of weight loss including Weight Watchers, Noom, and improving diet and exercise without success. This medication is prescribed by or in consultation with a board-certified obesity and weight management physician (Dr. Enedelia Gaines or Dr. Sandy Gaines). All questions answered to the patient's satisfaction. Patient demonstrates understanding of diagnosis and treatments discussed. Follow-up in 4 weeks, sooner should any questions/concerns arise. Case discussed with collaborating physician Joslyn Gaines who has reviewed the assessment/plan. Chart, medications, labs, and vital signs reviewed. Dictation completed with the use of [employer] voice recognition software, prone to medical misidentifications and grammatical errors. All errors are unintentional. Although the practitioner does try to identify and correct errors, some may be present. Please do not hesitate to contact the practitioner for clarification. Total time was 60 minutes spent with >50% on coordination of care and patient education. 08/21/2024 Morbid obesity (ICD-10 - E66.01) Davon is a 44-year-old male with a PMH of HTN, depression, anxiety that presents for weight management follow-up. Reviewed [facility] holistic and medical approach to weight loss with emphasis on lifestyle modification. 08/21/24: Weight: 312, BMI: 53.5. Patient down 15 pounds. Seca reviewed, reveals 12 pounds of fat loss and maintenance of muscle mass. Patient congratulated on progress. Discussed importance of portion control prioritization of protein intake, protein goal 30 g/meal. Patient encouraged to continue hydrating adequately and walking regularly. Goal 8-10K steps/day with added strength training 2-3 times weekly. Patient is encouraged to continue his current supplements, will trial MICC injection today. Given 15 pound weight loss, plan to continue Zepbound 2.5 mg SC weekly and follow-up in 1 month. 07/25/2024: Weight: 327, BMI: 56. Reviewed SECA/goals for implementing sustainable lifestyle changes. Patient is encouraged to increase physical activity, goal 8-10k steps/day. Also discussed the importance of strength training with proper safety/body mechanics for maintenance of muscle mass/bone health. Patient encouraged to drink 60-80oz water/day. Reviewed nutrition, recommending food diary x 1 week to ensure adequate caloric/protein intake. Goal of 80-100g protein/day. Reviewed risks, benefits, and side effects of weight management medications including phentermine, Topamax, Contrave, metformin, and GLP-1 agonist. Patient interested in GLP-1 agonist Zepbound. Denies personal/family history of medullary thyroid cancer/M EN syndrome. Rx for Zepbound 2.5 mg SC weekly sent to pharmacy. Reviewed proper use, administration, and expectations for PA process/insurance coverage. All questions answered to the patient's satisfaction. Patient demonstrates understanding of diagnosis and treatments discussed. Follow-up in 4 weeks, sooner should any questions/concerns arise. Case discussed with collaborating physician Joslyn Gaines who has reviewed the assessment/plan. Chart, medications, labs, and vital signs reviewed. Dictation completed with the use of [employer] voice recognition software, prone to medical misidentifications and grammatical errors. All errors are unintentional. Although the practitioner does try to identify and correct errors, some may be present. Please do not hesitate to contact the practitioner for clarification. Total time was 30 minutes spent with >50% on coordination of care and patient education. 08/21/2024 BMI 50.0-59.9, adult (ICD-10 - Z68.43) Davon is a 44-year-old male with a PMH of HTN, depression, anxiety that presents for weight management follow-up. Reviewed [facility] holistic and medical approach to weight loss with emphasis on lifestyle modification. 08/21/24: Weight: 312, BMI: 53.5. Patient down 15 pounds. Seca reviewed, reveals 12 pounds of fat loss and maintenance of muscle mass. Patient congratulated on progress. Discussed importance of portion control prioritization of protein intake, protein goal 30 g/meal. Patient encouraged to continue hydrating adequately and walking regularly. Goal 8-10K steps/day with added strength training 2-3 times weekly. Patient is encouraged to continue his current supplements, will trial MICC injection today. Given 15 pound weight loss, plan to continue Zepbound 2.5 mg SC weekly and follow-up in 1 month. 07/25/2024: Weight: 327, BMI: 56. Reviewed SECA/goals for implementing sustainable lifestyle changes. Patient is encouraged to increase physical activity, goal 8-10k steps/day. Also discussed the importance of strength training with proper safety/body mechanics for maintenance of muscle mass/bone health. Patient encouraged to drink 60-80oz water/day. Reviewed nutrition, recommending food diary x 1 week to ensure adequate caloric/protein intake. Goal of 80-100g protein/day. Reviewed risks, benefits, and side effects of weight management medications including phentermine, Topamax, Contrave, metformin, and GLP-1 agonist. Patient interested in GLP-1 agonist Zepbound. Denies personal/family history of medullary thyroid cancer/M EN syndrome. Rx for Zepbound 2.5 mg SC weekly sent to pharmacy. Reviewed proper use, administration, and expectations for PA process/insurance coverage. All questions answered to the patient's satisfaction. Patient demonstrates understanding of diagnosis and treatments discussed. Follow-up in 4 weeks, sooner should any questions/concerns arise. Case discussed with collaborating physician Joslyn Gaines who has reviewed the assessment/plan. Chart, medications, labs, and vital signs reviewed. Dictation completed with the use of [employer] voice recognition software, prone to medical misidentifications and grammatical errors. All errors are unintentional. Although the practitioner does try to identify and correct errors, some may be present. Please do not hesitate to contact the practitioner for clarification. Total time was 30 minutes spent with >50% on coordination of care and patient education. 07/25/2024 Essential hypertension (ICD-10 - I10) Patient was reassured and welcomed to the practice. Discussed [facility] holistic and medical approach to weight loss with emphasis on lifestyle modification. Patient is educated that a healthy lifestyle aids in combating obesity as well as reducing the risk of developing obesity-related medical complications including but not limited to diabetes and cardiovascular disease. Detailed education provided about taking steps to initiate sustainable lifestyle changes including incorporating regular physical activity, making healthy diet choices, and prioritizing mental health. Information provided about literature including The Food Rules by Coy Sifuetnes and Eat Fat Get Lean by Dr Lv Rodriguez. Handouts including lifestyle checklist, protein content of food, low calorie snacks, and cholesterol information sheet provided. Diagnostic testing/ SECA scale offered. Discussed the importance of regular SECA scale measurements to ensure healthy weight loss. 07/25/2024: Weight: 327, BMI: 56. Reviewed SECA/goals for implementing sustainable lifestyle changes. Patient is encouraged to increase physical activity, goal 8-10k steps/day. Also discussed the importance of strength training with proper safety/body mechanics for maintenance of muscle mass/bone health. Patient encouraged to drink 60-80oz water/day. Reviewed nutrition, recommending food diary x 1 week to ensure adequate caloric/protein intake. Goal of 80-100g protein/day. Reviewed risks, benefits, and side effects of weight management medications including phentermine, Topamax, Contrave, metformin, and GLP-1 agonist. Patient interested in GLP-1 agonist Zepbound. Denies personal/family history of medullary thyroid cancer/M EN syndrome. Rx for Zepbound 2.5 mg SC weekly sent to pharmacy. Reviewed proper use, administration, and expectations for PA process/insurance coverage. After consultation and careful review of medical history, this patient would benefit from Zepbound based off of the following criteria met: Patient is over the age of 16 with a BMI of 56. Additional comorbidities include HTN, elevated TG. Patient has trialed other methods of weight loss including Weight Watchers, Noom, and improving diet and exercise without success. This medication is prescribed by or in consultation with a board-certified obesity and weight management physician (Dr. Enedelia Gaines or Dr. Sandy Gaines). All questions answered to the patient's satisfaction. Patient demonstrates understanding of diagnosis and treatments discussed. Follow-up in 4 weeks, sooner should any questions/concerns arise. Case discussed with collaborating physician Joslyn Gaines who has reviewed the assessment/plan. Chart, medications, labs, and vital signs reviewed. Dictation completed with the use of [employer] voice recognition software, prone to medical misidentifications and grammatical errors. All errors are unintentional. Although the practitioner does try to identify and correct errors, some may be present. Please do not hesitate to contact the practitioner for clarification. Total time was 60 minutes spent with >50% on coordination of care and patient education. 07/25/2024 Nutritional counseling (ICD-10 - Z71.3) Patient was reassured and welcomed to the practice. Discussed [facility] holistic and medical approach to weight loss with emphasis on lifestyle modification. Patient is educated that a healthy lifestyle aids in combating obesity as well as reducing the risk of developing obesity-related medical complications including but not limited to diabetes and cardiovascular disease. Detailed education provided about taking steps to initiate sustainable lifestyle changes including incorporating regular physical activity, making healthy diet choices, and prioritizing mental health. Information provided about literature including The Food Rules by Coy Sifuentes and Eat Fat Get Lean by Dr Lv Rodriguez. Handouts including lifestyle checklist, protein content of food, low calorie snacks, and cholesterol information sheet provided. Diagnostic testing/ SECA scale offered. Discussed the importance of regular SECA scale measurements to ensure healthy weight loss. 07/25/2024: Weight: 327, BMI: 56. Reviewed SECA/goals for implementing sustainable lifestyle changes. Patient is encouraged to increase physical activity, goal 8-10k steps/day. Also discussed the importance of strength training with proper safety/body mechanics for maintenance of muscle mass/bone health. Patient encouraged to drink 60-80oz water/day. Reviewed nutrition, recommending food diary x 1 week to ensure adequate caloric/protein intake. Goal of 80-100g protein/day. Reviewed risks, benefits, and side effects of weight management medications including phentermine, Topamax, Contrave, metformin, and GLP-1 agonist. Patient interested in GLP-1 agonist Zepbound. Denies personal/family history of medullary thyroid cancer/M EN syndrome. Rx for Zepbound 2.5 mg SC weekly sent to pharmacy. Reviewed proper use, administration, and expectations for PA process/insurance coverage. After consultation and careful review of medical history, this patient would benefit from Zepbound based off of the following criteria met: Patient is over the age of 16 with a BMI of 56. Additional comorbidities include HTN, elevated TG. Patient has trialed other methods of weight loss including Weight Watchers, Noom, and improving diet and exercise without success. This medication is prescribed by or in consultation with a board-certified obesity and weight management physician (Dr. Enedelia Gaines or Dr. Sandy Gaines). All questions answered to the patient's satisfaction. Patient demonstrates understanding of diagnosis and treatments discussed. Follow-up in 4 weeks, sooner should any questions/concerns arise. Case discussed with collaborating physician Joslyn Gaines who has reviewed the assessment/plan. Chart, medications, labs, and vital signs reviewed. Dictation completed with the use of [employer] voice recognition software, prone to medical misidentifications and grammatical errors. All errors are unintentional. Although the practitioner does try to identify and correct errors, some may be present. Please do not hesitate to contact the practitioner for clarification. Total time was 60 minutes spent with >50% on coordination of care and patient education. 08/21/2024 Essential hypertension (ICD-10 - I10) Davon is a 44-year-old male with a PMH of HTN, depression, anxiety that presents for weight management follow-up. Reviewed [facility] holistic and medical approach to weight loss with emphasis on lifestyle modification. 08/21/24: Weight: 312, BMI: 53.5. Patient down 15 pounds. Seca reviewed, reveals 12 pounds of fat loss and maintenance of muscle mass. Patient congratulated on progress. Discussed importance of portion control prioritization of protein intake, protein goal 30 g/meal. Patient encouraged to continue hydrating adequately and walking regularly. Goal 8-10K steps/day with added strength training 2-3 times weekly. Patient is encouraged to continue his current supplements, will trial MICC injection today. Given 15 pound weight loss, plan to continue Zepbound 2.5 mg SC weekly and follow-up in 1 month. 07/25/2024: Weight: 327, BMI: 56. Reviewed SECA/goals for implementing sustainable lifestyle changes. Patient is encouraged to increase physical activity, goal 8-10k steps/day. Also discussed the importance of strength training with proper safety/body mechanics for maintenance of muscle mass/bone health. Patient encouraged to drink 60-80oz water/day. Reviewed nutrition, recommending food diary x 1 week to ensure adequate caloric/protein intake. Goal of 80-100g protein/day. Reviewed risks, benefits, and side effects of weight management medications including phentermine, Topamax, Contrave, metformin, and GLP-1 agonist. Patient interested in GLP-1 agonist Zepbound. Denies personal/family history of medullary thyroid cancer/M EN syndrome. Rx for Zepbound 2.5 mg SC weekly sent to pharmacy. Reviewed proper use, administration, and expectations for PA process/insurance coverage. All questions answered to the patient's satisfaction. Patient demonstrates understanding of diagnosis and treatments discussed. Follow-up in 4 weeks, sooner should any questions/concerns arise. Case discussed with collaborating physician Joslyn Gaines who has reviewed the assessment/plan. Chart, medications, labs, and vital signs reviewed. Dictation completed with the use of [employer] voice recognition software, prone to medical misidentifications and grammatical errors. All errors are unintentional. Although the practitioner does try to identify and correct errors, some may be present. Please do not hesitate to contact the practitioner for clarification. Total time was 30 minutes spent with >50% on coordination of care and patient education. 08/21/2024 Nutritional counseling (ICD-10 - Z71.3) Davon is a 44-year-old male with a PMH of HTN, depression, anxiety that presents for weight management follow-up. Reviewed [facility] holistic and medical approach to weight loss with emphasis on lifestyle modification. 08/21/24: Weight: 312, BMI: 53.5. Patient down 15 pounds. Seca reviewed, reveals 12 pounds of fat loss and maintenance of muscle mass. Patient congratulated on progress. Discussed importance of portion control prioritization of protein intake, protein goal 30 g/meal. Patient encouraged to continue hydrating adequately and walking regularly. Goal 8-10K steps/day with added strength training 2-3 times weekly. Patient is encouraged to continue his current supplements, will trial MICC injection today. Given 15 pound weight loss, plan to continue Zepbound 2.5 mg SC weekly and follow-up in 1 month. 07/25/2024: Weight: 327, BMI: 56. Reviewed SECA/goals for implementing sustainable lifestyle changes. Patient is encouraged to increase physical activity, goal 8-10k steps/day. Also discussed the importance of strength training with proper safety/body mechanics for maintenance of muscle mass/bone health. Patient encouraged to drink 60-80oz water/day. Reviewed nutrition, recommending food diary x 1 week to ensure adequate caloric/protein intake. Goal of 80-100g protein/day. Reviewed risks, benefits, and side effects of weight management medications including phentermine, Topamax, Contrave, metformin, and GLP-1 agonist. Patient interested in GLP-1 agonist Zepbound. Denies personal/family history of medullary thyroid cancer/M EN syndrome. Rx for Zepbound 2.5 mg SC weekly sent to pharmacy. Reviewed proper use, administration, and expectations for PA process/insurance coverage. All questions answered to the patient's satisfaction. Patient demonstrates understanding of diagnosis and treatments discussed. Follow-up in 4 weeks, sooner should any questions/concerns arise. Case discussed with collaborating physician Joslyn Gaines who has reviewed the assessment/plan. Chart, medications, labs, and vital signs reviewed. Dictation completed with the use of [employer] voice recognition software, prone to medical misidentifications and grammatical errors. All errors are unintentional. Although the practitioner does try to identify and correct errors, some may be present. Please do not hesitate to contact the practitioner for clarification. Total time was 30 minutes spent with >50% on coordination of care and patient education. PLAN OF TREATMENT Next Appt Details Provider Name:CHANDLER Thacker, 09/20/2024 08:45:00 AM, [address] [facility], [facility] [address], [place], [address], Insurance Providers Payer Name Payer Address Payer Phone Subscriber Number Group Number Insured Name Patient Relationship to Insured Coverage Start Date Coverage End Date [employer] [place] [employer] [facility] [address] [place] [address] [id number] Davon Wilkerson Self - patient is the insured MEDICATIONS ADMINISTERED Medication Instructions Date of Administration Dosage Notes MICC B12 INJECTION 08/21/2024 1 mL MEDICAL (GENERAL) HISTORY Medical History History ICD Code Essential hypertension I10 Moderate major depression F32.1 Anxiety, generalized F41.1 Iron deficiency anemia secondary to inad equate dietary iron intake D50.8 Surgical History Surgery Date(Month/Year) carpal tunnel release 02/2021
--- OUTSIDE RECORDS SUMMARY | 2024-08-24 17:03 | XMS_ITS ---
Author Organization [facility] Address [address] [facility] [address] Care Team Providers Care Leadership Development Manager Name Role Phone Kamar Johnson Primary Care Provider CHANDLER Beltran Unavailable [phone] ALLERGIES No Known Allergies REASON FOR VISIT Pt here for weight management consult. DARSHAN done. He wants to learn about her options for weight loss, no major concerns at this moment. Current weight is 327 MEDICATIONS Medication SIG (Take, Route, Frequency, Duration) Notes Start Date End Date Status Tadalafil 20 MG 1/2 tablet as needed Orally Once a day Active Lisinopril 20 MG 1 tablet Orally Once a day Active Metoprolol Succinate ER 50 MG 1 tablet Orally Once a day A ctive Zepbound 2.5 MG/0.5ML Inject 2.5mg Subcu taneous weekly for 30 days 07/25/2024 Active buPROPion HCl ER (XL) 300 MG [...] Notes Problem Essential hypertension (I10) Active confirmed 27211819 Problem 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) Active confirmed 047767 Problem Anxiety, generalized (F41.1) Active confirmed 57112687 Problem Iron deficiency anemia secondary to inadequate dietary iron intake (D50.8) Active confirmed 091300820 Problem BMI 50.0-59.9, adult (Z68.43) Active confirmed [id number] VITAL SIGNS Blood pressure systolic 150 mm Hg 07/26/19 25 Blood pressure diastolic 94 mm Hg 025 Heart Rate 89 /min 07/25/2024 Height 64 in 07/25/2024 Weight 327 lbs 07/25/2024 BMI 56.12 kg/m2 07/25/2024 Oximetry 97 % 07/25/2024 Encounters Encounter Location Date Provider Diagnosis [address] [facility] [address] [place] [address] 07/25/2024 CHANDLER BELTRÁN Morbid obesity E66.0 1 ; BMI 50.0-59.9, adult Z68.43 ; Essential hypertension I10 and Nutritional counseling Z71.3 ASSESSMENTS Encounter Date Diagnosis Assessment Notes Treatment [...] Follow-up in 4 weeks, sooner should any questions/concern s arise. Case discussed with collaborating physician Joslyn Gaines who has reviewed the assessment/plan. Chart, medications, labs, and vital signs reviewed. Dictation completed with the use of [employer] voice recognition software, prone to medical misidentification s and grammatical errors. All errors are unintentional. [...] Follow-up in 4 weeks, sooner should any questions/concern s arise. Case discussed with collaborating physician Joslyn Gaines who has reviewed the assessment/plan. Chart, medications, labs, and vital signs reviewed. Dictation completed with the use of [employer] voice recognition software, prone to medical misidentification s and grammatical errors. All errors are unintentional. [...] Follow-up in 4 weeks, sooner should any questions/concern s arise. Case discussed with collaborating physician Joslyn Gaines who has reviewed the assessment/plan. Chart, medications, labs, and vital signs reviewed. Dictation completed with the use of [employer] voice recognition software, prone to medical misidentification s and grammatical errors. All errors are unintentional. [...] Follow-up in 4 weeks, sooner should any questions/concern s arise. Case discussed with collaborating physician Joslyn Gaines who has reviewed the assessment/plan. Chart, medications, labs, and vital signs reviewed. Dictation completed with the use of [employer] voice recognition software, prone to medical misidentification s and grammatical errors. All errors are unintentional. Although the practitioner does try to identify and correct errors, some may be present. Please do not hesitate to contact the practitioner for clarification. Total time was 60 minutes spent with >50% on coordination of care and patient education. PLAN OF TREATMENT Medication Medication Name Sig Start Date Stop Date Notes Zepbound 2.5 MG/0.5ML Inject 2.5mg Subcu taneous weekly for 30 days 07/25/2024 Next Appt Details Provider Name:CHANDLER Thacker, 09/20/2024 08:45:00 AM, [address] [facility], [facility] [address], [place], [address], Progress Notes * LAMONTDavon KDOB: [birth year] (44 yo M)Acc No.[id number]:07/25/2024 Patient:??LAMONT Davon Avi Provider:??CHANDLER BELTRÁN PA-C :1980?Age:44 Y?Sex:Ayad langston Date:07/25/2024 Address:[address] [place] [address], [id number] Pcp:Kamar Johnson Subjective: * Chief Complaints: * ?1. Pt here for weight management consult. DARSHAN done. He wants to learn about her options for weight loss, no major concerns at this moment. Current weight is 327. * HPI: ?Constitutional:? Davon is a 44-year-old male with a PMH of HTN, depression, anxiety that presents for weight management consultation. Motivated to optimize overall health. Has lost weight successfully in the past with Weight Watchers and Noom - has found those methods unsuccessful more recently. 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 Breakfast is usually a muffin or smoothie. Lunch varies - typically leftovers from the night before. Snacks on something salty mid- afternoon - crackers, chips, etc. Dinner is prepared at home - typically consist of protein and carb/starch - not consistently incorporating veggies. Water intake is good - drinks about 60 ounces/day. Physical activity is limited to day-to-day activities. Currently getting around 6k steps/day. ?Established as primary care patient with Dr. Marco Antonio Johnson in [place], [place]. Last seen in May with labs. Labs drawn 05/29/2024 revealed iron deficiency for which he is following with his PCP. Lipid panel reveals mildly elevated TG at 155. CMP reveals elevated fasting glucose to 116. Labs otherwise WNL. * ROS:?Constitutional: Denies fever, night sweats, excessive fatigue, or changes in sleep. ???CV: Denies chest pain or heart palpitations. ???Respiratory: Denies SOB, wheezing, or pleuritic pain. ???GI: Denies abdominal pain, n/v/d, constipation, blood in stools, pain associated with eating, indigestion, or difficulty/pain with swallowing. ???MSK: Denies back pain, joint deformity/pain, or muscle weakness. ???Integumentary: Denies skin changes. ???Endocrine: Denies polyuria, polyphagia, or polydipsia. No heat/cold intolerance or excessive thirst. * Medical History:??Essential hypertension, Moderate major depression, Anxiety, generalized, Iron deficiency anemia secondary to inadequate dietary iron intake. * Surgical History:??carpal tu nnel release 02/2021. * Hospitalization/Major Diagno stic Procedure:??Denies Past Hospitalization. * Family History:??Father: ali ve, T2DM, HTN, obesity.??Mother: alive, obesity.??1 brother(s) , 1 sister(s) - healthy. 2 daughter(s) . .?? 20-year-old and 18-year-old daughters. 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 * Medications:??Taking Doxepin HCl 10 MG Capsule 1 capsule at bedtime Orally Once a day , Taking LORazepam 1 MG Tablet 1 tablet at bedtime as needed Orally Once a day , Taking Lisinopril 20 MG Tablet 1 tablet Orally Once a day , Taking Tadalafil 20 MG Tablet 1/2 tablet as needed Orally Once a day , Taking Metoprolol Succinate ER 50 MG Tablet Extended Release 24 Hour 1 tablet Orally Once a day , Taking buPROPion HCl ER (XL) 300 MG Tablet Extended Release 24 Hour 1 tablet in the morning Orally Once a day , Medication List reviewed and reconciled with the patient * Allergies:??N.K.D.A. Objective: * Vitals:??HR:89/min, BP:150/9 4mm Hg, Wt:327lbs, BMI:56.12Index, Ht: 64 in, Oxygen sat %:97%. * Physical Examination:?General: Age appropriate, well-appearing 44-year-old male in no acute distress, speaking in full sentences without respiratory compromise. Well groomed, well developed. Alert, interactive. ?Skin: Warm, dry and intact. No lesions/rashes/erythema. ?HEENT: Normocephalic/atraumatic. ?CV: RRR. ?Lungs: Clear to auscultation bilaterally. ?Neuro: CN II-XII grossly intact. Steady gait with non-assisted ambulation observed. ?Psych: Stable mood and affect. Assessment: * Assessment: 1.??Morbid obesity - E66.01 (Primary)??2.??BMI 50.0-59.9, adult - Z68.43??3.??Essential hypertension - I10??4.??Nutritional counseling - Z71.3?? Patient was reassured and we lcomed to the practice. Discussed [facility] holistic and [...] is encouraged to increase physical activity, goal 8- 10k steps/day. Also discussed the importance of strength [...] reviewed. Dictation completed with the use of [employer] voice recognition software, prone to medical misidentifications and grammatical errors. All errors are unintentional. Although the practitioner does try to identify and correct errors, some may be present. Please do not hesitate to contact the practitioner for clarification. Total time was 60 minutes spent with >50% on coordination of care and patient education. Plan: * Treatment: * Procedure Codes:??G0447 FCE- FCE BEHAVRL CNSL OBESITY 15 MIN, Modifiers: 59 * Images: Billing Information: * Visit Code:?? 31238 Office Visit, New Pt., Level 5. * Procedure Codes:?? G0447 FCE-FCE BEHAVRL CNSL OBESITY 15 MIN. Modifiers: 59 * Sign off status: Completed true * Provider:??CHANDLER BELTRÁN PA-C Date:?? 07/25/2024 History and Physical Notes * HPI (History of Present Illness) Category Sub-Category Detail Notes Category Not es Constitutional Davon is a 44-year-old male with a PMH of HTN, depression, anxiety that presents for weight management consultation. Motivated to optimize overall health. Has lost weight successfully in the past with Weight Watchers and Noom - has found those methods unsuccessful more recently. 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 Breakfast is usually a muffin or smoothie. Lunch varies - typically leftovers from the night before. Snacks on something salty mid-afternoon - crackers, chips, etc. Dinner is prepared at home - typically consist of protein and carb/starch - not consistently incorporating veggies. Water intake is good - drinks about 60 ounces/day. Physical activity is limited to day-to-day activities. Currently getting around 6k steps/day. Established as primary care patient with Dr. Marco Antonio Johnson in [place], [place]. Last seen in May with labs. Labs drawn 05/29/2024 revealed iron deficiency for which he is following with his PCP. Lipid panel reveals mildly elevated TG at 155. CMP reveals elevated fasting glucose to 116. Labs otherwise WNL. Physical Examination Category Sub-Category Detail Notes Section Note s General: Age appropriate, well-appearing 44-year-old male in no acute distress, speaking in full sentences without respiratory compromise. Well groomed, well developed. Alert, interactive. Skin: Warm, dry and intact. No lesions/rashes/erythema. HEENT: Normocephalic/atraumatic. CV: RRR. Lungs: Clear to auscultation bilaterally. Neuro: CN II-XII grossly intact. Steady gait with non-assisted ambulation observed. Psych: Stable mood and affect.
--- OUTSIDE RECORDS SUMMARY | 2024-08-24 17:03 | XMS_ITS ---
Author Organization [facility] Address [address] [place] [address] [place] [address] Care Team Providers Care Commercial Sheet Metal Foreman Name Role Phone Kamar Johnson Primary Care Provider Unavailab CHANDLER Martinez Unavailable [phone] ALLERGIES No Known Allergies REASON FOR VISIT Patient is here for weight management follow up. SECA done. Previous weight was 327. Today the patient weight is 312. He has no complaints MEDICATIONS Medication SIG (Take, Route, Frequency, Duration) [...] at bedtime Orally Once a day Active VITAL SIGNS Blood pressure systolic 126 mm Hg 08/22/19 25 Blood pressure diastolic 78 mm Hg 025 Heart Rate 89 /min 08/21/2024 Height 64 in 08/21/2024 Weight 312 lbs 08/21/2024 BMI 53.55 kg/m2 08/21/2024 Oximetry 98 % 08/21/2024 Encounters Encounter Location Date Provider Diagnosis [facility] [address] [address] 08/21/2024 CHANDLER BELTRÁN Morbid obesity E66.0 1 ; BMI 50.0-59.9, adult Z68.43 ; Essential hypertension I10 and Nutritional counseling Z71.3 ASSESSMENTS Encounter Date Diagnosis Assessment Notes Treatment Notes Treatment Clinical Notes Section Notes 08/21/2024 Morbid obesity (ICD-10 - E66.01) Davon [...] reviewed. Dictation completed with the use of [employer] voice recognition software, prone to medical misidentifications [...] reviewed. Dictation completed with the use of [employer] voice recognition software, prone to medical misidentifications [...] reviewed. Dictation completed with the use of [employer] voice recognition software, prone to medical misidentifications [...] reviewed. Dictation completed with the use of [employer] voice recognition software, prone to medical misidentifications [...] 2.5mg Subcu taneous weekly for 30 days Next Appt Details Provider Name:CHANDLER Thacker, 09/20/2024 08:45:00 AM, [address] [place] [address] [address], [address], MEDICATIONS ADMINISTERED Medication Instructions Date of Administration Dosage Notes MICC B12 INJECTION 08/21/2024 1 mL Progress Notes * LAMONT Davon KDOB: [birth year] (44 yo M)Acc No.[id number]:08/21/2024 Patient:??LAMONTDavon Avi Provider:??CHANDLER BELTRÁN PA-C :1980?Age:44 Y?Sex:Ayad langston Date:08/21/2024 Address:[address] [place], [place] [address] Pcp:Kamar Johnson Subjective: * Chief Complaints: * ?1. Patient is here for weight management follow up. SECA done. Previous weight was 327. Today the patient weight is 312. He has no complaints. * HPI: ?Constitutional:? Davon is a 44-year-old male with a PMH of HTN, depression, anxiety that presents for weight management follow-up. Patient currently taking Zepbound 2.5 mg SC weekly with compliance. Reports adequate appetite suppression. Denies the presence of side effects including nausea, vomiting, constipation, abdominal pain. Feels portion control is easier with the medication. Breakfast is usually a protein shake with fruit/hungarian yogurt. Lunch is leftovers from the night before. Dinner is prepared at home and consists of protein, veggies, and the occasional carb/starch. Water intake is good, averaging 60-80 ounces/day. Walking 6000 steps/day and going to the gym 2-3x week. ?Also started HPA adapt, probiome, motility activator, and cortisol sports team manager. Feels these are helpful - sleeping better, moving bowels daily. * ROS:?All Other Systems:?Review of Systems (ROS)??All others negative except those mentioned in HPI.? * Medical History:??Essential hypertension, Moderate major depression, Anxiety, generalized, Iron deficiency anemia secondary to inadequate dietary iron intake. * Surgical History:??audrey orosco nnel release 02/2021. * Family History:??Father: ali ve, T2DM, HTN, [...] morning Orally Once a day , Taking Zepbound 2.5 MG/0.5ML Solution Auto-injector Inject 2.5mg Subcutaneous weekly , Medication List reviewed and reconciled with the patient * Allergies:??N.K.D.A. Objective: * Vitals:??HR:89/min, BP:126/7 8mm Hg, Wt:312lbs, BMI:53.55Index, Ht: 64 in, Oxygen sat %:98%. * Physical Examination:?General: Age appropriate, well-appearing 44-year-old [...] Z68.43??3.??Essential hypertension - I10??4.??Nutritional counseling - Z71.3?? Davon is a 44-year-old male with a [...] reviewed. Dictation completed with the use of [employer] voice recognition software, prone to medical misidentifications and grammatical errors. All errors are unintentional. Although the practitioner does try to identify and correct errors, some may be present. Please do not hesitate to contact the practitioner for clarification. Total time was 30 minutes spent with >50% on coordination of care and patient education. Plan: * Treatment: * Therapeutic Injections:? MICC B12 INJECTION : 1 mL (Route: Intramuscular) given by Latosha Krause on left deltoid * Procedure Codes:??G0447 FCE- FCE BEHAVRL CNSL OBESITY 15 MIN, Modifiers: 59 * Images: Billing Information: * Visit Code:?? 86205 Office Visit, Est Pt., Level 4. Modifiers: 25, SA * Procedure Codes:?? G0447 FCE-FCE BEHAVRL CNSL OBESITY 15 MIN. Modifiers: 59 * Sign off status: Completed true * Provider:??CHANDLER BELTRÁN PA-C Date:?? 08/21/2024 History and Physical Notes * HPI (History of Present Illness) Category Sub-Category Detail Notes Category Not es Constitutional Davon is a 44-year-old male with a PMH of HTN, depression, anxiety that presents for weight management follow-up. Patient currently taking Zepbound 2.5 mg SC weekly with compliance. Reports adequate appetite suppression. Denies the presence of side effects including nausea, vomiting, constipation, abdominal pain. Feels portion control is easier with the medication. Breakfast is usually a protein shake with fruit/hungarian yogurt. Lunch is leftovers from the night before. Dinner is prepared at home and consists of protein, veggies, and the occasional carb/starch. Water intake is good, averaging 60-80 ounces/day. Walking 6000 steps/day and going to the gym 2-3x week. Also started HPA adapt, probiome, motility activator, and cortisol sports team manager. Feels these are helpful - sleeping better, moving bowels daily. Physical Examination Category Sub-Category Detail Notes Section [...]
--- OUTSIDE RECORDS SUMMARY | 2024-08-24 17:03 | XMS_ITS ---
Author Organization Kamar Johnson MD Address [address] [place], [place] [id number] Care Team Providers Care Assistant Designer Name Role Phone Kamar Johnson Primary Care Provider Results Component Value Reference Range Notes Complete Blood Count Auto Di ff Reviewed date:07/31/2024 07:28:09 AM Interpretation:07-30-2024 Performing Lab:[facility], [address] [place] [phone] Notes/Report: White Blood Count 12.2 4.8-10.8 X10*3/uL [...] Location Date Provider Diagnosis Kamar Johnson MD [address] [place] [phone] 07/16/2024 Kamar Johnson Iron deficiency anemia, unspecified iron deficiency anemia type D50.9 Assessments Encounter Date Diagnosis (ICD Code) Assessment Notes Treatment Notes Treatment Clinical Notes Section Notes 07/16/2024 Iron deficiency anemia, unspecified iron deficiency anemia type (ICD-10 - D50.9) Plan Of Treatment Next Appt Details Provider Name:Kamar lynch, 09/06/2024 07:30:00 AM, [address] [place] [address], [phone], Provider Name:Kamar lynch, 09/13/2024 01:30:00 PM, [address] [place] [address], [phone], Provider Name:Kamar lynch, 06/07/2025 08:00:00 AM, [address] [place] [address], [phone], Provider Name:Kamar lynch, 06/17/2025 04:00:00 PM, [address] [place] [address], [id number], Progress Notes * Dominic WILKERSONOB:1980 (44 yo M)Acc No.[id number]:07/16/2024 Progress Note Patient:?Davon WILKERSON Provider:?Kamar Johnson MD :1980???Age:44 Y???Sex:Male Ever e:07/16/2024 Address:[address] [place] [address] [id number] Subjective: * Chief Complaints: * ???1. CBC AUTO DIFF. * Medical History:? Objective: * Vitals:? Assessment: * Assessment: 1.?Iron deficiency anemia, u nspecified iron deficiency anemia type - D50.9 (Primary)??? Plan: * Treatment: * Procedure Codes:?20820 VENIP UNCT, ROUTINE* * * The named appointment provid er may or may not be the originator of this progress note, and it is not deemed complete until electronically signed by the appointment provider. Sign off status: Pending * Provider:?Kamar Johnson MD Date:?0 07/16/2024 Generated for Rehana torres/Roopa/Kristaitting on:?08/24/2024 05:02 PM EDT
--- OUTSIDE RECORDS SUMMARY | 2024-08-24 17:03 | XMS_ITS | Clinical Summary ---
Author Organization [facility] Address [address] [address] Care Team Providers Care Canning Machine Operator Name Role Phone Kamar Johnson MD Primary [...] Visit [facility] [address] [place] [address] Joselo Chanel MD [address] [facility] [address] [place] [address] Health Maintenance Due Date Last Done Comments Hepatitis B Vaccine (1 of 3 - 19+ 3-dose series) 1997 Influenza Vaccine (Season Ended) 2025 03/01/2022, 03/06/2021, 04/24/2019, Additional history exists Pneumococcal Vaccine: Pediatrics (0 to 5 Years) and At-Risk Patients (6 to 64 Years) Aged Out No longer eligible based on patient's age to complete this topic Care Teams Canning Machine Operator Relationship Specialty Start Date End Date Kamar Johnson MD [address] [place] [address] [id number] [place], [place] PCP - General Internal Medicine 06/08/22
== END 2024-08-24 16:21 | disposition home or self-care (01) ==
LOC: HO.HOP 16:20
PROVIDERS: PCP Internal Medicine; Visit Provider Psychiatry & Neurology Psychiatry
DX: F33.42 Major depressive disorder, recurrent, in full remission (principal); F41.1 Generalized anxiety disorder
CPT/HCPCS: 99213

== ENCOUNTER → 2024-08-24 16:20 | Outpatient (BNVA) | payer BC, SELFPAY | PROVIDERS: PCP Internal Medicine; Visit Provider Psychiatry & Neurology Psychiatry ==

== ENCOUNTER 2024-09-13 10:24 | Outpatient (REF) | payer BC, SELFPAY ==
[2024-09-13 10:26] LABS: MANUAL DIFF FLAG NO
[2024-09-13 11:08] LABS: Basophils Absolute Auto 0.1 X10*3/uL (0.0-0.2); Basophils Percent Auto 0.6 % (0-2); Eosinophils Absolute Auto 0.4 X10*3/uL (0.0-0.4); Eosinophils Percent Auto 3.4 % (0-4); Hematocrit 32.8 % (42.0-52.0); Hemoglobin 9.7 g/dl (14.0-18.0); Imm Gran Abs Auto 0.03 X10*3/uL (0.00-0.03); Imm Gran Pct Auto 0.3 % (0.0-0.4); Lymphocytes Absolute Auto 3.2 X10*3/uL (1.2-4.9); Lymphocytes Percent Auto 31.4 % (20-40); Mean Corpuscular HGB Conc 29.6 g/dl (31.0-36.0); Mean Corpuscular Hemoglobin 21.4 pg (27.0-33.0); Mean Corpuscular Volume 72.2 fL (80.0-98.0); Mean Platelet Volume 9.8 fL (9.4-12.4); Monocytes Percent Auto 9.6 % (2-11); Neutrophils Absolute Auto 5.6 x10*3/uL (2.0-8.3); Neutrophils Percent Auto 54.7 % (45-73); Platelet Count 369 X10*3/uL (160-400); Red Blood Count 4.54 X10*6/uL (4.60-5.80); Red Cell Distribution Width 17.9 % (11.0-16.0); White Blood Count 10.3 X10*3/uL (4.8-10.8)
[2024-09-13 11:20] LABS: Iron 20 mcg/dL (45-160); Percent Iron Saturation 6 % (15-50); Total Iron Binding Capacity 340 mcg/dL (228-428); Unsaturated Iron Binding 320 ug/dL
--- OUTSIDE RECORDS SUMMARY | 2024-09-13 12:00 | XMS_ITS ---
Author Organization [facility] Address [address] [place] [address] [place] [address] Care Team Providers Care Computational Physicist Name Role Phone Kamar Johnson Primary Care Provider Unavailab CHANDLER Martinez Unavailable [phone] ALLERGIES No Known Allergies REASON FOR VISIT [...] 08/21/2024 Encounters Encounter Location Date Provider Diagnosis [facility] [address] [phone] 08/21/2024 CHANDLER BELTRÁN Morbid obesity E66.0 1 [...] reviewed. Dictation completed with the use of Revcaster voice recognition software, prone to medical misidentifications [...] reviewed. Dictation completed with the use of Revcaster voice recognition software, prone to medical misidentifications [...] reviewed. Dictation completed with the use of Revcaster voice recognition software, prone to medical misidentifications [...] reviewed. Dictation completed with the use of Revcaster voice recognition software, prone to medical misidentifications [...] Details Provider Name:CHANDLER Thacker, 09/20/2024 08:45:00 AM, [address] [place] [address], [place], [phone], MEDICATIONS ADMINISTERED Medication Instructions Date of Administration Dosage Notes MICC B12 INJECTION 08/21/2024 1 mL Progress Notes * LAMONT Davon KDOB: [birth year] (44 yo M)Acc No.[id number]:08/21/2024 Patient:??LAMONTDavon Avi Provider:??CHANDLER BELTRÁN PA-C :1980?Age:44 Y?Sex:Ayad langston Date:08/21/2024 Address:[address] [place], [place] [address] Pcp:Kamar Johnson Subjective: * Chief Complaints: * [...] Breakfast is usually a protein shake with fruit/venezuelan yogurt. Lunch is leftovers from the night before. Dinner is prepared at home and consists of protein, veggies, and the occasional carb/starch. Water intake is good, averaging 60-80 ounces/day. Walking 6000 steps/day and going to the gym 2-3x week. ?Also started HPA adapt, probiome, motility activator, and cortisol net manager. Feels these are helpful - sleeping [...] reviewed. Dictation completed with the use of Revcaster voice recognition software, prone to medical misidentifications [...] * Images: Billing Information: * Visit Code:?? 41370 Office Visit, Est Pt., Level 4. Modifiers: [...] Breakfast is usually a protein shake with fruit/venezuelan yogurt. Lunch is leftovers from the night before. Dinner is prepared at home and consists of protein, veggies, and the occasional carb/starch. Water intake is good, averaging 60-80 ounces/day. Walking 6000 steps/day and going to the gym 2-3x week. Also started HPA adapt, probiome, motility activator, and cortisol net manager. Feels these are helpful - sleeping [...]
--- OUTSIDE RECORDS SUMMARY | 2024-09-13 12:00 | XMS_ITS ---
Author Organization [facility] Address [address] [place] [address] Care Team Providers Care Product Sales Representative Name Role Phone Kamar Johnson Primary Care Provider UnavailCHANDLER Pereira Unavailable [phone] REASON FOR VISIT PA-ZEPBOUND Encounters Encounter Location Date Provider Diagnosis [facility] [address] [place] [address] 07/25/2024 CHANDLER BELTRÁN PLAN OF TREATMENT Next Appt Details Provider Name:CHANDLER Thacker, 09/20/2024 08:45:00 AM, [address], [address], [place], [phone], Progress Notes * Davon WILKERSON KDOB: [birth year] (44 yo M)Acc No.[id number]:07/25/2024 Patient:??Davon WILKERSON :1980?Age:44 Y?Sex:Ayad langston Address:[address] [place] [address] * true * Date:??
--- OUTSIDE RECORDS SUMMARY | 2024-09-13 12:00 | XMS_ITS | Patient Health Record ---
Author Organization [facility] Address [address] [place] [address] Care Team Providers Care Gasket Former Name Role Phone Kamar Johnson Primary Care Provider CHANDLER Beltran Unavailable [phone] ALLERGIES No Known Allergies REASON FOR REFERRAL [...] Notes Problem Essential hypertension (I10) Active confirmed 40605645 Problem Morbid obesity (E66.01) Active confirmed Morbid obesity (899958754) Problem BMI 50.0-59.9, adult (Z68.43) Active confirmed 080026999 Problem Iron deficiency anemia secondary to inadequate dietary iron intake (D50.8) Active confirmed 461623261 Problem Anxiety, generalized (F41.1) Active confirmed 72975889 Problem 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) Active confirmed 815655 VITAL SIGNS Heart Rate 89 /min 08/21/2024 Oximetry 98 % 08/21/2024 Blood pressure diastolic 78 mm Hg 08/21/2024 Height 64 in 08/21/2024 Blood pressure systolic 126 mm Hg 08/21/2024 Weight 312 lbs 08/21/2024 BMI 53.55 kg/m2 08/21/2024 Encounters Encounter Location Date Provider Diagnosis [address] [place] [address] 07/25/2024 CHANDLER BELTRÁN Morbid obesity E66.0 1 ; BMI 50.0-59.9, adult Z68.43 ; Essential hypertension I10 and Nutritional counseling Z71.3 [address] [place] [address] 08/21/2024 CHANDLER BELTRÁN Morbid obesity E66.0 1 ; BMI 50.0-59.9, adult Z68.43 ; Essential hypertension I10 and Nutritional counseling Z71.[address] [facility] [address] [facility] [address] [facility] [address] [facility] [address] [place] [address] 07/25/2024 CHANDLER BELTRÁN ASSESSMENTS Encounter Date Diagnosis [...] reviewed. Dictation completed with the use of Mailjet voice recognition software, prone to medical misidentifications [...] reviewed. Dictation completed with the use of Mailjet voice recognition software, prone to medical misidentifications [...] reviewed. Dictation completed with the use of Mailjet voice recognition software, prone to medical misidentifications [...] reviewed. Dictation completed with the use of Mailjet voice recognition software, prone to medical misidentifications [...] reviewed. Dictation completed with the use of Mailjet voice recognition software, prone to medical misidentifications [...] literature including The Food Rules by Coy Sifuentse and Eat Fat Get Lean by Dr [...] reviewed. Dictation completed with the use of Mailjet voice recognition software, prone to medical misidentifications [...] reviewed. Dictation completed with the use of Mailjet voice recognition software, prone to medical misidentifications [...] reviewed. Dictation completed with the use of Mailjet voice recognition software, prone to medical misidentifications [...] Provider Name:CHANDLER Thacker, 09/20/2024 08:45:00 AM, [address] [facility], [facility] [address], [place], [address], Insurance Providers Payer Name Payer Address Payer Phone Subscriber Number Group Number Insured Name Patient Relationship to Insured Coverage Start Date Coverage End Date [employer] and [employer] [facility] [address] [place] [address] [id number] Davon Wilkerson Self - patient is [...]
--- OUTSIDE RECORDS SUMMARY | 2024-09-13 12:00 | XMS_ITS ---
Author Organization Kamar Johnson MD Address [address] [place], [place] [address] Care Team Providers Care House Father Name Role Phone Kamar Johnson Primary Care Provider [phone] Results Component Value Reference Range Notes Complete Blood Count Auto Di ff (Not yet reviewed by provider) Interpretation: Performing Lab:[facility], [address] [place] [phone] Notes/Report: White Blood Count 10.3 4.8-10.8 X10*3/uL [...] Abs Auto 0.000 0.0-0.012 X10*3/uL IRON PROFILE (Not yet review ed by provider) Interpretation: Performing Lab:[facility], [address] [place] [phone] Notes/Report: Iron 20 45-160 mcg/dL Total Iron Binding Capacity 340 228-428 mcg/d L Percent Iron Saturation 6 15-50 % Unsaturated Iron Binding 320 REASON FOR VISIT Iron profile, CBS and diff Encounters Encounter Location Date Provider Diagnosis Kamar Johnson MD [address] [place] [phone] 09/13/2024 Kamar Johnson Iron deficiency anemia, unspecified iron deficiency anemia type D50.9 Assessments Encounter Date Diagnosis (ICD Code) Assessment Notes Treatment Notes Treatment Clinical Notes Section Notes 09/13/2024 Iron deficiency anemia, unspecified iron deficiency anemia type (ICD-10 - D50.9) Plan Of Treatment Pending Test Test Name Order Date Complete Blood Count Auto Diff IRON PROFILE 09/13/2024 Next Appt Details Provider Name:Kamar lynch, 09/20/2024 10:15:00 AM, [address] [place] [address], [phone], Provider Name:Kamar lynch, 06/07/2025 08:00:00 AM, [address] [place] [address], [phone], Provider Name:Kamar lynch, 06/17/2025 04:00:00 PM, [address] [place] [address], [phone], Progress Notes * Randall WILKERSON:1980 (44 yo M)Acc No.[id number]:09/13/2024 Progress Note Patient:?Davon WILKERSON Provider:?Kamar Johnson MD :1980???Age:44 Y???Sex:Male Ever e:09/13/2024 Address:[address] [place], [place] [phone] Subjective: * Chief Complaints: * ???1. Iron profile, CBS and diff. * Medical History:? Objective: * Vitals:? Assessment: * Assessment: 1.?Iron deficiency anemia, u nspecified iron deficiency anemia type - D50.9 (Primary)??? Plan: * Treatment: * Procedure Codes:?32369 VENIP UNCT, ROUTINE* * * The named appointment provid er may or may not be the originator of this progress note, and it is not deemed complete until electronically signed by the appointment provider. Sign off status: Pending * Provider:?Kamar Johnson MD Date:?0 09/13/2024 Generated for Rehana torres/Roopa/eTransmitting on:?09/13/2024 12:00 PM EDT
--- OUTSIDE RECORDS SUMMARY | 2024-09-13 12:00 | XMS_ITS | Patient Health Record ---
Author Organization Kamar Johnson MD Address [address] [place], [place] [id number] Care Team Providers Care Casino Banker Name Role Phone Kamar Johnson Primary Care Provider Allergies No Known Allergies Results Component Value Reference Range Notes Complete Blood Count Auto Di ff Reviewed date:06/15/2024 03:11:24 PM Interpretation:see back 06-14-2024 Performing Lab:[facility], [address] [place] [phone] Notes/Report: White Blood Count 11.2 4.8-10.8 X10*3/uL [...] NRBC Abs Auto 0.000 0.0-0.012 X10*3/uL Comprehensive [place]. Panel Fa st Reviewed date:05/29/2024 12:55:13 PM Interpretation: Performing Lab:[address] [phone] Notes/Report: Sodium 139 135-145 mmol/L Potassium 3.8 [...] Panel Reviewed date:05/29/2024 12:38:57 PM Interpretation: Performing Lab:[address] [phone] Notes/Report: Triglycerides 155 <150 mg/dL Desirable Triglyceride: [...] (Free>4and<10) Reviewed date:05/29/2024 12:38:49 PM Interpretation: Performing Lab:[facility], [address] [place] [phone] Notes/Report: PSA,Total (Free>4and<10) 0.15 0.00-4.00 ng/mL A [...] t Reviewed date:05/29/2024 04:25:59 PM Interpretation: Performing Lab:[facility], [address] [place] [phone] Notes/Report: Urine, Clean Catch Color Urine Yellow Appearance Urine Clear PH 5.5 5.0-9.0 Glucose Urine UA Negative Negative mg/dL Urine Blood Negative Negative Specific [place] - Urine 1.025 1.005-1.025 Urine Protein 300 [...] PROFILE Reviewed date:06/15/2024 01:29:48 PM Interpretation: Performing Lab:[facility], [address] [place] [phone] Notes/Report: Iron 37 45-160 mcg/dL Total Iron Binding Capacity 341 228-428 mcg/d L Percent Iron Saturation 11 15-50 % Unsaturated Iron Binding 304 Complete Blood Count Auto Di ff Reviewed date:07/31/2024 07:28:09 AM Interpretation:07-30-2024 Performing Lab:[facility], [address] [place] [phone] Notes/Report: White Blood Count 12.2 4.8-10.8 X10*3/uL [...] X10*3/uL NRBC Abs Auto 0.000 0.0-0.012 X10*3/uL Hold Gold (Not yet reviewed by provider) Interpretation: Performing Lab:[facility], [address] [place] [phone] Notes/Report: Hold Gold See Note Specimen held untested for 24 hours; Call to request Chemistry testing. Complete Blood Count Auto Di ff (Not yet reviewed by provider) Interpretation: Performing Lab:[facility], [address] [place] [phone] Notes/Report: White Blood Count 10.3 4.8-10.8 X10*3/uL [...] yet review ed by provider) Interpretation: Performing Lab:[facility], [address] [place] [phone] Notes/Report: Iron 20 45-160 mcg/dL Total Iron Binding Capacity 340 228-428 mcg/d L Percent Iron Saturation 6 15-50 % Unsaturated Iron Binding 320 Reason For Referral Reason DEQUERVAINS TENOSYNO VITIS [...] Referral Priority Routine Referral Appointment Date 06/26/2024 Reason Iron Deficiency anem ia Diagnosis 1 Iron deficiency anem ia, unspecified iron deficiency anemia type (D50.9) Referral Organization Kamar Johnson MD Referring Provider First Name Kamar Referring Provider Last Name Alex Referring Provider Speciality Internal edicine Referred Provider Adrián Rios Referred Provider Specialty Gastroentero logy General Notes Abbey Garcia 0 07/30/2024 02:20:11 PM >info faxedJose Annette 08/02/2024 03:01:21 PM >per office being review by Jose Foster Annette 08/31/2024 11:20:40 AM >was told by office patient is aware of appt Referral Priority Routine Referral Appointment Date 12/11/2024 Medications Medication SIG (Take, Route, Frequency, Duration) Notes Start Date End Date Status Tadalafil 20 MG TAKE 1/2 TABLET BY M OUTH ONCE A DAY NEEDED for 60 Active Doxepin HCl 10 MG 1 capsule at bedtime Orally Once a day Active LORazepam 1 MG 1 tablet as needed O rally prn Not-Taking Lisinopril 20 MG TAKE ONE TABLET BY M OUTH EVERY DAY Active buPROPion HCl ER (XL) 300 MG 1 tablet in the morning Orally Once a day Active Metoprolol Succinate ER 50 MG TAKE ONE TABLET BY MOUTH EVERY DAY Active Zepbound 2.5 MG/0.5ML 0.5 mL Subcutaneous Active Immunizations Vaccine Route Administration Date Status [...] W/U Status Risk Notes Problem Erectile dysfunction (138738582) Erectile dysfunction (N52.9) Active confirmed Problem 92963329 Anxiety (F41.9) Active confirmed Problem 34297060 Essential hypertension (I10) Active confirmed Problem 307911043 Morbid obesity (E66.01) Active confirmed Problem 99299393 Iron deficiency anemia, unspecified iron deficiency anemia type (D50.9) Active confirmed Problem 66844376 Internal hemorrhoids (K64.8) Active confirmed Problem Obstructive sleep apnea syndrome (62740894) OMARI (obstructive sleep apnea) (G47.33) Active confirmed Problem 91011531881580833 Carpal tunnel syndrome on both sides (G56.03) Active confirmed Vital Signs Blood pressure diastolic 92 mm Hg 07/30/2024 Height 64.5 in 07/30/2024 Blood pressure systolic 190 mm Hg 07/30/2024 Weight 334 lbs 07/30/2024 BMI 56.44 kg/m2 07/30/2024 Encounters Encounter Location Date Provider Diagnosis Kamar Johnson MD [address] [place] [id number] 05/29/2024 Kamar Johnson Blood tests for routine general physical examination Z00.00 and Essential hypertension I10 Kamar Johnson MD [address] [place] [id number] 07/16/2024 Kamar Johnson Iron deficiency anemia, unspecified iron deficiency anemia type D50.9 Kamar Johnson MD [address] [place] [address] [id number] 09/13/2024 Kamar Johnson Iron deficiency anemia, unspecified iron deficiency anemia type D50.9 Kamar Johnson MD [address] [id number] 12/01/2023 Kamar Johnson Essential hypertension I10 ; Anxiety F41.9 and OMARI (obstructive sleep apnea) G47.33 Kamar Johnson MD [address] [place] [id number] 06/14/2024 Kamar Johnson Iron deficiency anemia, unspecified iron deficiency anemia type D50.9 ; Annual physical exam Z00.00 ; Morbid obesity E66.01 ; De Quervain's tenosynovitis M65.4 ; Essential hypertension I10 ; Colon cancer screening Z12.11 ; Depression screening Z13.31 and Anxiety F41.9 Kamar Johnson MD [address] [place] [id number] 07/30/2024 Kamar Johnson Iron deficiency anemia, unspecified iron deficiency anemia type D50.9 and Essential hypertension I10 Kamar Johnson MD [address] [place] [id number] 06/28/2024 Kamar Johnson Assessments Encounter Date Diagnosis (ICD Code) Assessment Notes Treatment Notes Treatment Clinical Notes Section Notes 05/29/2024 Blood tests for routine general physical examination (ICD-10 - Z00.00) 05/29/2024 Essential hypertension (ICD-10 - I10) 07/16/2024 Iron deficiency anemia, unspecified iron deficiency anemia type (ICD-10 - D50.9) 09/13/2024 Iron deficiency anemia, unspecified iron deficiency [...] Z00.00) labs reviewed and discussed with patient 07/30/2024 Iron deficiency anemia, unspecified iron deficiency anemia type (ICD-10 - D50.9) although he had a colonoscopy 5 years ago i feel with the new anemia and persistant intermittant bleeding that we should have another colonoscopy now 12/01/2023 OMARI (obstructive sleep apnea) (ICD-10 - G47.33) using nightly. 06/14/2024 Morbid obesity (ICD-10 - E66.01) is going to try the weight loss clinic 07/30/2024 Essential hypertension (ICD-10 - I10) doing well 06/14/2024 De Quervain's tenosynovitis (ICD-10 - M65.4) [...] (EKG) 06/07/2019 Complete Blood Count Auto Diff Complete Blood Count Auto Diff IRON PROFILE 09/13/2024 IRON PROFILE 07/30/2024 Hold Gold 09/13/2024 Next Appt Details Provider Name:Kamar lynch, 09/20/2024 10:15:00 AM, [address] [place] [address], [address], [place], [place], [phone], Provider Name:Kamar Oseguera ier, 06/07/2025 08:00:00 AM, [address] [place] [address], [address], [place], [place], [phone], Provider Name:Kamar Oseguera ier, 06/17/2025 04:00:00 PM, [address] [place] [address], Suite [facility], [place], [place], [phone], Insurance Providers Payer Name Payer Address Payer Phone Subscriber Number Group Number Insured Name Patient Relationship to Insured Coverage Start Date Coverage End Date [facility] [address] [place], [place] [id number] Davon Wilkerson Self - patient is the insured Medical (General) History Medical History History ICD Code Colonoscopy 01/07/20 - Dr. Rios (repeat 10 years) Hematochezia K92.1 Hematochezia
--- OUTSIDE RECORDS SUMMARY | 2024-09-13 12:00 | XMS_ITS ---
Author Organization Kamar Johnson MD Address [address] [place], [place] [phone] Care Team Providers Care Cyber Forensic Specialist Name Role Phone Kamar Johnson Primary Care Provider [phone] Results Component Value Reference Range Notes Complete Blood Count Auto Di ff Reviewed date:07/31/2024 07:28:09 AM Interpretation:07-30-2024 Performing Lab:[facility], [address] [place] [phone] Notes/Report: White Blood Count 12.2 4.8-10.8 X10*3/uL [...] Location Date Provider Diagnosis Kamar Johnson MD [address] [place] [id number] 07/16/2024 Kamar Johnson Iron deficiency anemia, unspecified iron deficiency anemia type D50.9 Assessments Encounter Date Diagnosis (ICD Code) Assessment Notes Treatment Notes Treatment Clinical Notes Section Notes 07/16/2024 Iron deficiency anemia, unspecified iron deficiency anemia type (ICD-10 - D50.9) Plan Of Treatment Next Appt Details Provider Name:Kamar lynch, 09/20/2024 10:15:00 AM, [address] [place] [address], [phone], Provider Name:Kamar lynch, 06/07/2025 08:00:00 AM, [address] [place] [address], [phone], Provider Name:Kamar lynch, 06/17/2025 04:00:00 PM, [address] [place] [address], [phone], Progress Notes * LAMONTDominicOB:1980 (44 yo M)Acc No.[id number]:07/16/2024 Progress Note Patient:Davon JULIAN Provider:?Kamar Johnson MD :1980???Age:44 Y???Sex:Male Ever e:07/16/2024 Address:[address] [place] [address] [place], [id number] Subjective: * Chief Complaints: * ???1. CBC AUTO DIFF. * Medical History:? Objective: * Vitals:? Assessment: * Assessment: 1.?Iron deficiency anemia, u nspecified iron deficiency anemia type - D50.9 (Primary)??? Plan: * Treatment: * Procedure Codes:?04498 VENIP UNCT, ROUTINE* * * The named appointment provid er may or may not be the originator of this progress note, and it is not deemed complete until electronically signed by the appointment provider. Sign off status: Pending * Provider:?Kamar Johnson MD Date:?0 07/16/2024 Generated for Rehana torres/Roopa/Kristaitting on:?09/13/2024 12:00 PM EDT
--- OUTSIDE RECORDS SUMMARY | 2024-09-13 12:01 | XMS_ITS | Clinical Summary ---
Author Organization [facility] Facility Address [address] [address] Care Team Providers Care Plugging Machine Operator Name Role Phone Kamar Johnson [...] Carpal tunnel syndrome 10/19/2022 Anxiety 10/19/2022 Immunizations Immunization Administration Dates Next Due Influenza (IM) Preservative [...] Visit [facility] [address] [place] [address] Joselo Chanel MD [address] [facility] [address] [place] [address] Health Maintenance Due Date Last Done Comments Hepatitis B Vaccine (1 of 3 - 19+ 3-dose series) 1997 Influenza Vaccine (Season Ended) 2025 03/01/2022, 03/06/2021, 04/24/2019, Additional history exists Pneumococcal Vaccine: Peds (0 to 5 Years) and At-Risk Patients (6 to 49 Years) Aged Out No longer eligi ble based on patient's age to complete this topic Care Teams Plugging Machine Operator Relationship Specialty Start Date End Date Kamar Johnson MD [address] [place] [address] [address] [facility] [place] PCP - General Internal Medicine 06/08/22
--- OUTSIDE RECORDS SUMMARY | 2024-09-13 12:01 | XMS_ITS ---
Author Organization Kamar Johnson MD Address [address] [place] [phone] Care Team Providers Care Mounted Police Officer Name Role Phone Kamar Johnson Primary Care Provider [phone] Allergies No Known Allergies Reason For Referral [...] Location Date Provider Diagnosis Kamar Johnson MD [address] [place] [address] Drive [address] [place], [place] [phone] 07/30/2024 Kamar Johnson Iron deficiency anemia, unspecified [...] Up: 6 Weeks, Reason: Provider Name:Kamar lynch, 09/20/2024 10:15:00 AM, [address] [place] [address], [address], [place], [place], [phone], Provider Name:Kamar lynch, 06/07/2025 08:00:00 AM, [address] [place] [address], [address], [place], [place], [phone], Provider Name:Kamar lynch, 06/17/2025 04:00:00 PM, [address], [address], [place], [phone], Progress Notes * Dominic WILKERSONOB:1980 (44 yo M)Acc No.[id number]:07/30/2024 Patient:?Davon WILKERSON Provider:?Kamar Johnson MD :1980???Age:44 Y???Sex:Male Ever e:07/30/2024 Address:[address] [place], [place] [id number] Subjective: * Chief Complaints: * ???2 week/ [...] Objective: * Vitals:?Ht: 64.5, Wt: 334, B OH:56.44, BP:190/92, Repeat BP:120/86, Wt-k.5. * Examination: ???General [...] Provider:?Kamar Johnson MD Date:?0 07/30/2024 Generated for Printi brian/Roopa/eTransmitting on:?09/13/2024 12:00 PM EDT History and Physical Notes * [...]
--- OUTSIDE RECORDS SUMMARY | 2024-09-13 12:01 | XMS_ITS ---
Author Organization [facility] Address [address] [facility] [place] [address] Care Team Providers Care Negative Turner Apprentice Name Role Phone Kamar Johnson Primary Care Provider CHANDLER Beltran Unavailable [phone] ALLERGIES No Known Allergies REASON FOR VISIT [...] Notes Problem Essential hypertension (I10) Active confirmed 90535402 Problem 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) Active confirmed 616206 Problem Anxiety, generalized (F41.1) Active confirmed 93662522 Problem Iron deficiency anemia secondary to inadequate dietary iron intake (D50.8) Active confirmed 638014355 Problem BMI 50.0-59.9, adult (Z68.43) Active confirmed 930362274 VITAL SIGNS Blood pressure systolic 150 mm Hg 07/26/19 25 Blood pressure diastolic 94 mm Hg 025 Heart Rate 89 /min 07/25/2024 Height 64 in 07/25/2024 Weight 327 lbs 07/25/2024 BMI 56.12 kg/m2 07/25/2024 Oximetry 97 % 07/25/2024 Encounters Encounter Location Date Provider Diagnosis [address] [facility] [place] [address] 07/25/2024 CHANDLER BELTRÁN Morbid obesity E66.0 1 [...] literature including The Food Rules by Coy Sifuenets and Eat Fat Get Lean by Dr [...] reviewed. Dictation completed with the use of [employer] voice recognition software, prone to medical misidentification [...] reviewed. Dictation completed with the use of [employer] voice recognition software, prone to medical misidentification [...] reviewed. Dictation completed with the use of [employer] voice recognition software, prone to medical misidentification [...] reviewed. Dictation completed with the use of [employer] voice recognition software, prone to medical misidentification [...] Provider Name:CHANDLER Thacker, 09/20/2024 08:45:00 AM, [address] [facility] [address], [place], [address], Progress Notes * LAMONTDavon KDOB: 8 (44 yo M)Acc No.[id number]:07/25/2024 Patient:??LAMONT Davon Avi Provider:??CHANDLER BELTRÁN PA-C :1980?Age:44 Y?Sex:Ayad langston Date:07/25/2024 Address:[address] [place] [address], [id number] Pcp:Kamar Johnson Subjective: * Chief Complaints: * [...] those methods unsuccessful more recently. 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 Breakfast is [...] patient with Dr. Marco Antonio Johnson in [place], [place]. Last seen in May with labs. [...] reviewed. Dictation completed with the use of [employer] voice recognition software, prone to medical misidentifications [...] * Images: Billing Information: * Visit Code:?? 95502 Office Visit, New Pt., Level 5. * [...] those methods unsuccessful more recently. 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 Breakfast is [...] patient with Dr. Marco Antonio Johnson in [place], [place]. Last seen in May with labs. [...]
== END 2024-09-13 10:25 | disposition home or self-care (01) ==
LOC: HO.LNP 10:24
PROVIDERS: Visit Provider Internal Medicine
DX: D50.9 Iron deficiency anemia, unspecified (principal)
CPT/HCPCS: 83540; 85025

== ENCOUNTER 2025-01-07 15:38 | Outpatient (REF) | payer BC, SELFPAY ==
--- OUTSIDE RECORDS SUMMARY | 2024-09-13 03:30 | XMS_ITS ---
Author Organization Kamar Johnson MD Address [address] [place], [place] [address] Care Team Providers Care Job Setter Honing Name Role Phone Kamar Johnson Primary Care Provider Results Component Value Reference Range Notes Complete Blood Count Auto Di ff Reviewed date:09/13/2024 04:56:47 PM Interpretation: Performing Lab:[facility], [address] [place] [phone] Notes/Report: White Blood Count 10.3 4.8-10.8 X10*3/uL [...] date:09/20/2024 12:15:25 PM Interpretation:CBACK IRON 09/20 Performing Lab:[facility], [address] [place] [phone] Notes/Report: Iron 20 45-160 mcg/dL Total Iron Binding Capacity 340 228-428 mcg/d L Percent Iron Saturation 6 15-50 % Unsaturated Iron Binding 320 REASON FOR VISIT Iron profile, CBS and diff Encounters Encounter Location Date Provider Diagnosis Kamar Johnson MD [address] [place] [address] [place] [phone] 09/13/2024 Kamar Johnson Iron deficiency anemia, unspecified iron deficiency anemia type D50.9 Assessments Encounter Date Diagnosis (ICD Code) Assessment Notes Treatment Notes Treatment Clinical Notes Section Notes 09/13/2024 Iron deficiency anemia, unspecified iron deficiency anemia type (ICD-10 - D50.9) Plan Of Treatment Next Appt Details Provider Name:Kamar lynch, 03/11/2025 08:45:00 AM, [address] [place] [address], [address] [place] [address], [phone], Provider Name:Kamar lynch, 06/07/2025 08:00:00 AM, [address] [place] [address], [address], [phone], Provider Name:Kamar lynch, 06/17/2025 04:00:00 PM, [address] [place] [address], [address], [phone], Progress Notes * Randall WILKERSON:1980 (44 yo M)Acc No.[id number]:09/13/2024 Progress Note Patient: Davon DUNHAM Provider: Kelsea Johnson MD :1980 A ge:44 Y S ex:Male Date:09/13/2024 Address:[address] [place], [place] [phone] Subjective: * Chief Complaints: * 1 . [...] 09/13/2024 Generated for Rehana torres/Roopa/Kristaitting on: 0 01/07/2025 04:03 PM EDT
--- OUTSIDE RECORDS SUMMARY | 2024-12-11 05:20 | XMS_ITS ---
Author Organization [facility] Address [address] [place] [address] Care Team Providers Care Qa Engineer Name Role Phone Kamar Johnson MD Primary Care Provider Adrián Rocha [phone] REASON FOR VISIT Patient presents today for anemia Encounters Encounter Location Date Provider Diagnosis [facility] [address] [place] [address] 12/11/2024 Adrián Rios Plan Of Treatment Next Appt Details Provider Name:Adrián Rios , 01/09/2025 03:35:00 PM, [address], [address], [place], [address], Progress Notes * FAZAL WILKERSONCELSAOB:1980 (44 yo M)Acc No.[id number]:12/11/2024 Progress Notes Patient: HUBER DUNHAM Provider: Virgie Rios MD :1980 A ge:44 Y S ex:Male Date:12/11/2024 [address] [id number] Pcp:Kamar Johnson MD Subjective: * Chief Complaints: [...] Rios MD Date: 0 12/11/2024 Generated for Rehana torres/Roopa/Charanjit on: 0 01/07/2025 04:03 PM EDT
[2025-01-07 15:50] LABS: MANUAL DIFF FLAG NO
--- OUTSIDE RECORDS SUMMARY | 2025-01-07 16:03 | XMS_ITS | Clinical Summary ---
Author Organization [facility] Address [address] [place] [address] Care Team Providers Care Marketing Assistant Retail Division Name Role Phone Kamar Johnson MD Primary Care Provider [phone] Allergies No known active allergies Medications metoprolol [...] each day 180 tablet 1 05/09/2023 Active Zepbound 2.5 MG/0.5ML solution auto-injector INJECT 2.5 MG UNDER THE SKIN ONCE WEEKLY 12/12/2024 Active doxepin (SINEquan) 10 MG capsule 12/27/2024 Active Active Problems Problem Noted Date Diagnosed Date Type 2 diabetes mellitus wit h diabetic chronic kidney disease 12/31/2024 Proteinuria 10/25/2022 Obstructive sleep apnea syndrome 10/19/2022 Internal hemorrhoids 10/19/2022 Essential hypertension 10/19/2022 Erectile dysfunction 10/19/2022 Carpal tunnel syndrome 10/19/2022 Anxiety 10/19/2022 Encounters Date Type Department Care Team Description 12/31/2024 4:15 PM EDT Office Visit [facility] [address] [place] [phone] Joselo Chanel MD Persistent proteinuria (Primary Dx); Type 2 diabetes mellitus with diabetic chronic kidney disease (HCC) from Last 3 Months Immunizations Immunization Administration Dates Next Due Influenza (IM) Preservative Free 03/01/2022,02/20,04/24/2019,03/06/2018 Pfizer SARS-COV-2 04/02/2021,08/21/2020,08/01/19 21 Family History Medical History Relation Comments Hypertension Father Diabetes Mother Hypertension Mother Relation Status Comments Father Alive Mother Alive Social History Tobacco Use Types Packs/Day Years [...] Sign Reading Time Taken Comments Blood Pressure 119/68 12/31/2024 3:59 PM EDT Pulse 86 12/31/2024 3:59 PM EDT Temperature - - Respiratory Rate - - Oxygen Saturation 96% 12/31/2024 3:59 PM EDT Inhaled Oxygen Concentration - - Weight 122 kg (268 lb 6.4 oz) 12/31/2024 3:59 PM EDT Height - - Body Mass Index - - Plan of Treatment Upcoming Encounters Date Type Department Care Team (Late st Contact Info) Description 12/30/2025 1:30 PM EDT Office Visit [facility] [address] [place] [address] Joselo Chanel MD [address] [facility] [address] [place] [address] Health Maintenance Due Date Last Done Comments Hepatitis B Vaccine (1 of 3 - 19+ 3-dose series) 1997 Pneumococcal Vaccine: Peds ( 0 to 5 Years) and At-Risk Patients (6 to 49 Years) (1 of 2 - PCV) 1997 Diabetes: Hemoglobin A1C 12/31/2024 Diabetes: Ophthalmology Exam 12/31/2024 Diabetes: Pedal Pulse Checked 12/31/2024 Diabetes: Sensory Foot Exam 12/31/2024 Diabetes: Visual Foot Exam 12/31/2024 Influenza Vaccine (#1) 2025 2, 03/06/2021, 04/24/2019, Additional history exists Care Teams Marketing Assistant Retail Division Relationship Specialty Start Date End Date Kamar Johnson MD [address] [place], [place] PCP - General Internal Medicine 06/08/22
--- OUTSIDE RECORDS SUMMARY | 2025-01-07 16:03 | XMS_ITS | Clinical Summary ---
Author Organization 175 [facility] Address [address] [place] [address] Phone Care Team Providers Care Rehab Consultant Name Role Phone Kamar Johnson MD Primary Care Provider Allergies No known active allergies Medications buPROPion XL (WELLBUTRIN XL) 300 mg 24 hr tablet Take 1 tablet (300 mg total) by mouth 1 (one) time each day. Active doxepin (SINEquan) 10 mg capsule 12/27/2024 Active metoprolol succinate (TOPROL-XL) 50 mg 24 hr tablet Take 1 tablet (50 mg total) by mouth 1 (one) time each day. 11/30/2024 Active lisinopriL (PRINIVIL,ZESTRI L) 20 mg tablet Take 1 tablet (20 mg total) by mouth 1 (one) time each day. 11/30/2024 Active LORazepam (ATIVAN) 1 mg tablet Take 1 tablet (1 mg total) by mouth. 03/13/2021 Active Zepbound 2.5 mg/0.5 mL injection INJECT 2.5 MG UNDER THE SKIN ONCE WEEKLY 12/12/2024 Active Active Problems Problem Noted Date Diagnosed Date Right carpal tunnel syndrome 12/28/2024 Proteinuria 10/25/2022 Anxiety 10/19/2022 Carpal tunnel syndrome 10/19/2022 Erectile dysfunction 10/19/2022 Essential hypertension 10/19/2022 Internal hemorrhoids 10/19/2022 Obstructive sleep apnea syndrome 10/19/2022 Encounters Date Type Department Care Team Description 12/28/2024 8:00 AM EDT Consult Orthopedic Surgery [facility] [address] [phone] Julia Quick MD Right carpal tunnel syndrome (Primary Dx); Carpal tunnel syndrome on both sides 12/28/2024 Telephone Orthopedic Surgery [facility] 250 [address] [facility] [address] [place] [phone] Julia Quick MD Surgery from Last 3 Months Surgical History Surgery Date Site/Laterality Comments CARPAL TUNNEL RELEASE 05/23/2020 - 05/22/2021 Left Social History Tobacco Use Types Packs/Day Years Used Date Smoking Tobacco: Never Assessed Sex and Gender Information Value Date Recorded Sex Assigned at Not on file Legal Sex Male 10:11 AM EDT Gender Identity Not on file Sexual Orientation Not on file Travel History Travel Start Travel End [place] 12/01/2024 12/07/2024 Obstetrics History Last Filed Vital Signs Vital Sign Reading Time Taken Comments Blood Pressure - - Pulse - - Temperature - - Respiratory Rate - - Oxygen Saturation - - Inhaled Oxygen Concentration - - Weight 118 kg (260 lb) 12/28/2024 8:05 AM EDT Height 162.6 cm (5' 4 ) 12/28/2024 8:05 AM EDT Body Mass Index 44.63 12/28/2024 8:05 AM EDT Plan of Treatment Upcoming Encounters Date Type Department Care Team (Latest Contact Info) Description 04/04/2025 7:30 AM EST Hospital Encounter [facility] Main OR [address] [place] [phone] Julia Quick MD [address] [phone] 04/04/2025 7:30 AM EST - 04/04/2025 9:00 AM EST Surgery [facility] Main OR [address] [place] [phone] Julia Quick MD [address] [phone] ENDOSCOPIC RELEASE RIGHT CARPAL TUNNEL [[id number] (CPT )] 04/15/2025 9:30 AM EST Office Visit Orthopedic Surgery - [place] [address] [facility] [address] [place] [phone] Pearl Hernandez PA [address] [facility] [address] [place] [phone] Scheduled Procedures Name Priority Associated Diagnoses Date/Ti me RELEASE CARPAL TUNNEL ENDOSCOPIC Right carpal tunnel syndrome 04/04/2025 7:30 AM EST Health Maintenance Due Date Last Done Comments DTaP,Tdap,and Td Vaccines (1 - Tdap) 1997 Hepatitis B Vaccines (1 of 3 - 19+ 3-dose series) 1997 Depression Screening 05/23/2024 Cholesterol Screening (Lipid Panel) 09/29/2024 Colorectal Cancer Screening: Colonoscopy 09/29/2024 HIV Screening 09/29/2024 Hepatitis C Screening 09/29/2024 Social Influencers of Health Screening 09/29/2024 Hypertension/CHF/CAD Annual BMP Blood Test 12/28/2024 Influenza Vaccine (#1) 2025 , 02/26/2023, 03/01/2022, Additional history exists COVID-19 Vaccine Completed 02/19/2024, 11/2022, 03/10/2022, Additional history exists HIB Vaccines Aged Out No longer eligi ble based on patient's age to complete this topic HPV Vaccines Aged Out No longer eligi ble based on patient's age to complete this topic Hepatitis A Vaccines Aged Out No long er eligible based on patient's age to complete this topic IPV Vaccines Aged Out No longer eligi ble based on patient's age to complete this topic MMR Vaccines Aged Out No longer eligi ble based on patient's age to complete this topic Meningococcal ACWY Vaccine Aged Out N o longer eligible based on patient's age to complete this topic Meningococcal B Vaccine Aged Out No l onger eligible based on patient's age to complete this topic Pneumococcal Vaccine: Pediatrics (0 to 5 Years) and At-Risk Patients (6 to 49 Years) Aged Out No longer eligible based on patient's age to complete this topic RSV Immunization Patients Under 20 months Aged Out No longer eligible based on patient's age to complete this topic Varicella Vaccines Aged Out No longer eligible based on patient's age to complete this topic Insurance [facility] Care Teams Rehab Consultant Relationship Specialty Start Date End Date Kamar Johnson MD [address] [place] [address] [address] [place] [address] PCP - General Internal Medicine 09/29/24
--- OUTSIDE RECORDS SUMMARY | 2025-01-07 16:03 | XMS_ITS | Patient Health Record ---
Author Organization [facility] [address] Address [address] [place] [address] Care Team Providers Care Maitre D Name Role Phone Kamar Johnson Primary Care Provider CHANDLER Beltr[place] Unavailable [phone] Allergies No Known Allergies Reason For Referral Diagnosis 1 Morbid obesity (E66. 01) Referred Provider Kamar Johnson Referred Provider Specialty Weight Manag ement Referral Priority Routine Medications Medication SIG (Take, [...] Zepbound 2.5 MG/0.5ML Inject 2.5mg Subcu taneous weekly; Duration: 30 days Active LORazepam 1 MG 1 tablet at bedtime as needed Orally Once a day Active Doxepin HCl 10 MG 1 capsule at bedtime Orally Once a day Active Problems Problem Type SNOMED Code ICD Code Onset Dates Problem Status W/U Status Risk Notes Problem Essential hypertension (24810391) Essential hypertension (I10) Active confirmed Problem Morbid obesity (471825545) Morbid obesity (E66.01) Active confirmed Problem Body mass index 40+ - severely obese (620377154) BMI 45.0-49.9, adult (Z68.42) Active confirmed Problem Iron deficiency anemia secondary to inadequate dietary iron intake (622365770) Iron deficiency anemia secondary to inadequate dietary iron intake (D50.8) Active confirmed Problem Generalized anxiety disorder (44889396) Anxiety, generalized (F41.1) Active confirmed Problem Moderate major depression (508239) 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) Active confirmed Vital Signs Heart Rate 76 /min 12/11/2024 Oximetry 98 % 12/11/2024 Blood pressure diastolic 88 mm Hg 12/11/2024 Height 64 in 12/11/2024 Blood pressure systolic 130 mm Hg 12/11/2024 Weight 267.4 lbs 12/11/2024 BMI 45.89 kg/m2 12/11/2024 Encounters Encounter Location Date Provider Diagnosis [facility] [address] [address] 07/25/2024 [facility] [place] Morbid obesity E66.0 1 ; BMI 50.0-59.9, adult Z68.43 ; Essential hypertension I10 and Nutritional counseling Z71.3 [facility] [address] [address] 08/21/2024 [facility] [place] Morbid obesity E66.0 1 ; BMI 50.0-59.9, adult Z68.43 ; Essential hypertension I10 and Nutritional counseling Z71.3 [facility] [address] [facility] [address] [place] [address] 09/20/2024 [facility] [place] Morbid obesity E66.0 1 ; BMI 50.0-59.9, adult Z68.43 ; Essential hypertension I10 and Nutritional counseling Z71.3 [facility] [address] [facility] [address] [place] [address] 11/06/2024 [facility] [place] Morbid obesity E66.0 1 ; BMI 45.0-49.9, adult Z68.42 ; Essential hypertension I10 and Nutritional counseling Z71.3 [facility] [address] [facility] [address] [place] [address] 12/11/2024 [facility] [place] Morbid obesity E66.0 1 ; BMI 45.0-49.9, adult Z68.42 ; Essential hypertension I10 and Nutritional counseling Z71.3 [facility] [address] [facility] [address] [place] [address] 07/25/2024 [facility] [place] [facility] [address] [facility] [address] [place] [address] 10/18/2024 [facility] Morbid obesity E66.0 1 [facility] [address] [facility] [address] [place], [place] 11/12/2024 [place]ER [place] [facility] [address] [facility] [address] [place] [address] 12/26/2024 [place]LER [place] [facility] [address] [facility] [address] [place] [address] 12/26/2024 CHANDLER [place] Assessments Encounter Date Diagnosis (ICD Code) Assessment [...] reviewed. Dictation completed with the use of [employer] voice recognition software, prone to medical misidentifications [...] reviewed. Dictation completed with the use of [employer] voice recognition software, prone to medical misidentifications [...] reviewed. Dictation completed with the use of [employer] voice recognition software, prone to medical misidentifications and grammatical errors. All errors are unintentional. Although the practitioner does try to identify and correct errors, some may be present. Please do not hesitate to contact the practitioner for clarification. Total time was 30 minutes spent with >50% on coordination of care and patient education. 09/20/2024 Morbid obesity (ICD-10 - E66.01) Davon is a 44-year-old male with a PMH of HTN, depression, anxiety that presents for weight management follow-up. Reviewed [facility] holistic and medical approach to weight loss with emphasis on lifestyle modification. 09/20/2024: Weight: 298, BMI: 51.3. Patient down 12 more pounds since time of last visit. SECA reviewed, reveals 8 pounds of fat loss and 3 pounds of muscle mass loss. He is strongly encouraged to continue walking regularly with added strength training 2-3 times weekly. He is also encouraged to continue practicing portion control and prioritizing intake of protein dense foods. Continue with current hydration. Given 12 pound weight loss will continue Zepbound 2.5 mg SC weekly and follow-up in 1 month. 08/21/24: Weight: 312, BMI: 53.5. Patient down [...] reviewed. Dictation completed with the use of [employer]ze voice recognition software, prone to medical misidentifications and grammatical errors. All errors are unintentional. Although the practitioner does try to identify and correct errors, some may be present. Please do not hesitate to contact the practitioner for clarification. Total time was 30 minutes spent with >50% on coordination of care and patient education. 10/18/2024 Morbid obesity (ICD-10 - E66.01) 11/06/2024 Morbid obesity (ICD-10 - E66.01) Davon is a 44-year-old male with a PMH of HTN, depression, anxiety that presents for weight management follow-up. Reviewed [facility] medical approach to weight loss with emphasis on lifestyle modification. 11/06/2024: Weight: 280.7, BMI: 48.2. (-18lbs). SECA reviewed, reveals 20 pounds of fat loss and 2 pounds of muscle mass gain. Patient congratulated on continued progress. He is encouraged to continue making health-conscious diet choices and prioritizing protein intake. He is also encouraged to continue exercising regularly and hydrating adequately. Will continue Zepbound 2.5 mg SC weekly and follow-up in 4 to 6 weeks. 09/20/2024: Weight: 298, BMI: 51.3. (-12lbs) 08/21/24: Weight: 312, BMI: 53.5. (-15lbs) 07/25/2024: Weight: 327, BMI: 56. All questions answered to the patient's satisfaction. Patient demonstrates understanding of diagnosis and treatments discussed. Follow-up in 4 weeks, sooner should any questions/concerns arise. Case discussed with collaborating physician Joslyn Gaines who has reviewed the assessment/plan. Chart, medications, labs, and vital signs reviewed. Dictation completed with the use of [employer] voice recognition software, prone to medical misidentifications and grammatical errors. All errors are unintentional. Although the practitioner does try to identify and correct errors, some may be present. Please do not hesitate to contact the practitioner for clarification. Total time was 30 minutes spent with >50% on coordination of care and patient education. 11/06/2024 BMI 45.0-49.9, adult (ICD-10 - Z68.42) Davon is a 44-year-old male with a PMH of HTN, depression, anxiety that presents for weight management follow-up. Reviewed [facility] medical approach to weight loss with emphasis on lifestyle modification. 11/06/2024: Weight: 280.7, BMI: 48.2. (-18lbs). SECA reviewed, reveals 20 pounds of fat loss and 2 pounds of muscle mass gain. Patient congratulated on continued progress. He is encouraged to continue making health-conscious diet choices and prioritizing protein intake. He is also encouraged to continue exercising regularly and hydrating adequately. Will continue Zepbound 2.5 mg SC weekly and follow-up in 4 to 6 weeks. 09/20/2024: Weight: 298, BMI: 51.3. (-12lbs) 08/21/24: Weight: 312, BMI: 53.5. (-15lbs) 07/25/2024: Weight: 327, BMI: 56. All questions answered to the patient's satisfaction. Patient demonstrates understanding of diagnosis and treatments discussed. Follow-up in 4 weeks, sooner should any questions/concerns arise. Case discussed with collaborating physician Joslyn Gaines who has reviewed the assessment/plan. Chart, medications, labs, and vital signs reviewed. Dictation completed with the use of Dat[employer]ze voice recognition software, prone to medical misidentifications and grammatical errors. All errors are unintentional. Although the practitioner does try to identify and correct errors, some may be present. Please do not hesitate to contact the practitioner for clarification. Total time was 30 minutes spent with >50% on coordination of care and patient education. 12/11/2024 Morbid obesity (ICD-10 - E66.01) Davon is a 44-year-old male with a PMH of HTN, depression, anxiety that presents for weight management follow-up. Reviewed [facility] medical approach to weight loss with emphasis on lifestyle modification. 12/11/2024: Weight: 267.4, BMI: 45.9. (-13lbs) SECA reviewed, reveals 10 pounds of fat loss and 2.5 pounds of muscle mass loss. Patient congratulated on continued progress. He is encouraged to continue making health-conscious diet choices and prioritizing protein intake. Discussed importance of continued active lifestyle and regular hydration. Plan to continue Zepbound 2.5 mg SC weekly and follow-up in 1 month. 11/06/2024: Weight: 280.7, BMI: 48.2. (-18lbs) 09/20/2024: Weight: 298, BMI: 51.3. (-12lbs) 08/21/24: Weight: 312, BMI: 53.5. (-15lbs) 07/25/2024: Weight: 327, BMI: 56. All questions answered to the patient's satisfaction. Patient demonstrates understanding of diagnosis and treatments discussed. Follow-up in 4 weeks, sooner should any questions/concerns arise. Case discussed with collaborating physician Joslyn Gaines who has reviewed the assessment/plan. Chart, medications, labs, and vital signs reviewed. Dictation completed with the use of [employer]ze voice recognition software, prone to medical misidentifications and grammatical errors. All errors are unintentional. Although the practitioner does try to identify and correct errors, some may be present. Please do not hesitate to contact the practitioner for clarification. Total time was 30 minutes spent with >50% on coordination of care and patient education. 12/11/2024 BMI 45.0-49.9, adult (ICD-10 - Z68.42) Davon is a 44-year-old male with a PMH of HTN, depression, anxiety that presents for weight management follow-up. Reviewed [facility] medical approach to weight loss with emphasis on lifestyle modification. 12/11/2024: Weight: 267.4, BMI: 45.9. (-13lbs) SECA reviewed, reveals 10 pounds of fat loss and 2.5 pounds of muscle mass loss. Patient congratulated on continued progress. He is encouraged to continue making health-conscious diet choices and prioritizing protein intake. Discussed importance of continued active lifestyle and regular hydration. Plan to continue Zepbound 2.5 mg SC weekly and follow-up in 1 month. 11/06/2024: Weight: 280.7, BMI: 48.2. (-18lbs) 09/20/2024: Weight: 298, BMI: 51.3. (-12lbs) 08/21/24: Weight: 312, BMI: 53.5. (-15lbs) 07/25/2024: Weight: 327, BMI: 56. All questions answered to the patient's satisfaction. Patient demonstrates understanding of diagnosis and treatments discussed. Follow-up in 4 weeks, sooner should any questions/concerns arise. Case discussed with collaborating physician Joslyn Gaines who has reviewed the assessment/plan. Chart, medications, labs, and vital signs reviewed. Dictation completed with the use of [employer] voice recognition software, prone to medical misidentifications and grammatical errors. All errors are unintentional. Although the practitioner does try to identify and correct errors, some may be present. Please do not hesitate to contact the practitioner for clarification. Total time was 30 minutes spent with >50% on coordination of care and patient education. 11/06/2024 Essential hypertension (ICD-10 - I10) Davon is a 44-year-old male with a PMH of HTN, depression, anxiety that presents for weight management follow-up. Reviewed [facility] holistic and medical approach to weight loss with emphasis on lifestyle modification. 11/06/2024: Weight: 280.7, BMI: 48.2. (-18lbs). SECA reviewed, reveals 20 pounds of fat loss and 2 pounds of muscle mass gain. Patient congratulated on continued progress. He is encouraged to continue making health-conscious diet choices and prioritizing protein intake. He is also encouraged to continue exercising regularly and hydrating adequately. Will continue Zepbound 2.5 mg SC weekly and follow-up in 4 to 6 weeks. 09/20/2024: Weight: 298, BMI: 51.3. (-12lbs) 08/21/24: Weight: 312, BMI: 53.5. (-15lbs) 07/25/2024: Weight: 327, BMI: 56. All questions answered to the patient's satisfaction. Patient demonstrates understanding of diagnosis and treatments discussed. Follow-up in 4 weeks, sooner should any questions/concerns arise. Case discussed with collaborating physician Joslyn Gaines who has reviewed the assessment/plan. Chart, medications, labs, and vital signs reviewed. Dictation completed with the use of Dat[employer]ze voice recognition software, prone to medical misidentifications and grammatical errors. All errors are unintentional. Although the practitioner does try to identify and correct errors, some may be present. Please do not hesitate to contact the practitioner for clarification. Total time was 30 minutes spent with >50% on coordination of care and patient education. 09/20/2024 BMI 50.0-59.9, adult (ICD-10 - Z68.43) Davon is a 44-year-old male with a PMH of HTN, depression, anxiety that presents for weight management follow-up. Reviewed [facility] and medical approach to weight loss with emphasis on lifestyle modification. 09/20/2024: Weight: 298, BMI: 51.3. Patient down 12 more pounds since time of last visit. SECA reviewed, reveals 8 pounds of fat loss and 3 pounds of muscle mass loss. He is strongly encouraged to continue walking regularly with added strength training 2-3 times weekly. He is also encouraged to continue practicing portion control and prioritizing intake of protein dense foods. Continue with current hydration. Given 12 pound weight loss will continue Zepbound 2.5 mg SC weekly and follow-up in 1 month. 08/21/24: Weight: 312, BMI: 53.5. Patient down [...] reviewed. Dictation completed with the use of Dat[employer]ze voice recognition software, prone to medical misidentifications [...] reviewed. Dictation completed with the use of [employer]ze voice recognition software, prone to medical misidentifications [...] reviewed. Dictation completed with the use of [employer]ze voice recognition software, prone to medical misidentifications and grammatical errors. All errors are unintentional. Although the practitioner does try to identify and correct errors, some may be present. Please do not hesitate to contact the practitioner for clarification. Total time was 60 minutes spent with >50% on coordination of care and patient education. 09/20/2024 Essential hypertension (ICD-10 - I10) Davon is a 44-year-old male with a PMH of HTN, depression, anxiety that presents for weight management follow-up. Reviewed [facility] holistic and medical approach to weight loss with emphasis on lifestyle modification. 09/20/2024: Weight: 298, BMI: 51.3. Patient down 12 more pounds since time of last visit. SECA reviewed, reveals 8 pounds of fat loss and 3 pounds of muscle mass loss. He is strongly encouraged to continue walking regularly with added strength training 2-3 times weekly. He is also encouraged to continue practicing portion control and prioritizing intake of protein dense foods. Continue with current hydration. Given 12 pound weight loss will continue Zepbound 2.5 mg SC weekly and follow-up in 1 month. 08/21/24: Weight: 312, BMI: 53.5. Patient down [...] reviewed. Dictation completed with the use of Datanyze voice recognition software, prone to medical misidentifications [...] reviewed. Dictation completed with the use of Dat[employer]ze voice recognition software, prone to medical misidentifications [...] reviewed. Dictation completed with the use of [employer]ze voice recognition software, prone to medical misidentifications and grammatical errors. All errors are unintentional. Although the practitioner does try to identify and correct errors, some may be present. Please do not hesitate to contact the practitioner for clarification. Total time was 30 minutes spent with >50% on coordination of care and patient education. 11/06/2024 Nutritional counseling (ICD-10 - Z71.3) Davon is a 44-year-old male with a PMH of HTN, depression, anxiety that presents for weight management follow-up. Reviewed [facility] and medical approach to weight loss with emphasis on lifestyle modification. 11/06/2024: Weight: 280.7, BMI: 48.2. (-18lbs). SECA reviewed, reveals 20 pounds of fat loss and 2 pounds of muscle mass gain. Patient congratulated on continued progress. He is encouraged to continue making health-conscious diet choices and prioritizing protein intake. He is also encouraged to continue exercising regularly and hydrating adequately. Will continue Zepbound 2.5 mg SC weekly and follow-up in 4 to 6 weeks. 09/20/2024: Weight: 298, BMI: 51.3. (-12lbs) 08/21/24: Weight: 312, BMI: 53.5. (-15lbs) 07/25/2024: Weight: 327, BMI: 56. All questions answered to the patient's satisfaction. Patient demonstrates understanding of diagnosis and treatments discussed. Follow-up in 4 weeks, sooner should any questions/concerns arise. Case discussed with collaborating physician Joslyn Gaines who has reviewed the assessment/plan. Chart, medications, labs, and vital signs reviewed. Dictation completed with the use of Dat[employer]ze voice recognition software, prone to medical misidentifications and grammatical errors. All errors are unintentional. Although the practitioner does try to identify and correct errors, some may be present. Please do not hesitate to contact the practitioner for clarification. Total time was 30 minutes spent with >50% on coordination of care and patient education. 12/11/2024 Essential hypertension (ICD-10 - I10) Davon is a 44-year-old male with a PMH of HTN, depression, anxiety that presents for weight management follow-up. Reviewed [facility] holistic and medical approach to weight loss with emphasis on lifestyle modification. 12/11/2024: Weight: 267.4, BMI: 45.9. (-13lbs) SECA reviewed, reveals 10 pounds of fat loss and 2.5 pounds of muscle mass loss. Patient congratulated on continued progress. He is encouraged to continue making health-conscious diet choices and prioritizing protein intake. Discussed importance of continued active lifestyle and regular hydration. Plan to continue Zepbound 2.5 mg SC weekly and follow-up in 1 month. 11/06/2024: Weight: 280.7, BMI: 48.2. (-18lbs) 09/20/2024: Weight: 298, BMI: 51.3. (-12lbs) 08/21/24: Weight: 312, BMI: 53.5. (-15lbs) 07/25/2024: Weight: 327, BMI: 56. All questions answered to the patient's satisfaction. Patient demonstrates understanding of diagnosis and treatments discussed. Follow-up in 4 weeks, sooner should any questions/concerns arise. Case discussed with collaborating physician Joslyn Gaines who has reviewed the assessment/plan. Chart, medications, labs, and vital signs reviewed. Dictation completed with the use of Dat[employer]ze voice recognition software, prone to medical misidentifications and grammatical errors. All errors are unintentional. Although the practitioner does try to identify and correct errors, some may be present. Please do not hesitate to contact the practitioner for clarification. Total time was 30 minutes spent with >50% on coordination of care and patient education. 09/20/2024 Nutritional counseling (ICD-10 - Z71.3) Davon is a 44-year-old male with a PMH of HTN, depression, anxiety that presents for weight management follow-up. Reviewed [facility] and medical approach to weight loss with emphasis on lifestyle modification. 09/20/2024: Weight: 298, BMI: 51.3. Patient down 12 more pounds since time of last visit. SECA reviewed, reveals 8 pounds of fat loss and 3 pounds of muscle mass loss. He is strongly encouraged to continue walking regularly with added strength training 2-3 times weekly. He is also encouraged to continue practicing portion control and prioritizing intake of protein dense foods. Continue with current hydration. Given 12 pound weight loss will continue Zepbound 2.5 mg SC weekly and follow-up in 1 month. 08/21/24: Weight: 312, BMI: 53.5. Patient down [...] reviewed. Dictation completed with the use of Dat[employer]ze voice recognition software, prone to medical misidentifications [...] reviewed. Dictation completed with the use of Dat[employer]ze voice recognition software, prone to medical misidentifications and grammatical errors. All errors are unintentional. Although the practitioner does try to identify and correct errors, some may be present. Please do not hesitate to contact the practitioner for clarification. Total time was 30 minutes spent with >50% on coordination of care and patient education. 12/11/2024 Nutritional counseling (ICD-10 - Z71.3) Davon is a 44-year-old male with a PMH of HTN, depression, anxiety that presents for weight management follow-up. Reviewed [facility] and medical approach to weight loss with emphasis on lifestyle modification. 12/11/2024: Weight: 267.4, BMI: 45.9. (-13lbs) SECA reviewed, reveals 10 pounds of fat loss and 2.5 pounds of muscle mass loss. Patient congratulated on continued progress. He is encouraged to continue making health-conscious diet choices and prioritizing protein intake. Discussed importance of continued active lifestyle and regular hydration. Plan to continue Zepbound 2.5 mg SC weekly and follow-up in 1 month. 11/06/2024: Weight: 280.7, BMI: 48.2. (-18lbs) 09/20/2024: Weight: 298, BMI: 51.3. (-12lbs) 08/21/24: Weight: 312, BMI: 53.5. (-15lbs) 07/25/2024: Weight: 327, BMI: 56. All questions answered to the patient's satisfaction. Patient demonstrates understanding of diagnosis and treatments discussed. Follow-up in 4 weeks, sooner should any questions/concerns arise. Case discussed with collaborating physician Joslyn Gaines who has reviewed the assessment/plan. Chart, medications, labs, and vital signs reviewed. Dictation completed with the use of Dat[employer]ze voice recognition software, prone to medical misidentifications and grammatical errors. All errors are unintentional. Although the practitioner does try to identify and correct errors, some may be present. Please do not hesitate to contact the practitioner for clarification. Total time was 30 minutes spent with >50% on coordination of care and patient education. Plan Of Treatment Next Appt Details Provider Name:CHANDLER Thacker, 01/17/2025 09:00:00 AM, [address], [id number], Insurance Providers Payer Name Payer Address Payer Phone Subscriber Number Group Number Insured Name Patient Relationship to Insured Coverage Start Date Coverage End Date [facility] [address] [place] [address] [id number] Davon Wilkerson Self - patient is the insured Medications Administered Medication Instructions Date of Administration Dosage Notes MICC B12 INJECTION 08/21/2024 1 mL MICC B12 INJECTION 09/20/2024 1 mL MICC B12 INJECTION 11/06/2024 1 mL MICC B12 INJECTION 12/11/2024 1.0 mL Medical (General) History Medical History History ICD Code Essential hypertension I10 Moderate major depression F32.1 Anxiety, generalized F41.1 Iron deficiency anemia secondary to inad equate dietary iron intake D50.8 Surgical History Surgery Date(Month/Year) carpal tunnel release 02/2021
[2025-01-07 16:54] LABS: Hematocrit 36.7 % (42.0-52.0); Hemoglobin 10.9 g/dl (14.0-18.0); Imm Gran Abs Auto 0.04 X10*3/uL (0.00-0.03); Imm Gran Pct Auto 0.4 % (0.0-0.4); Lymphocytes Absolute Auto 3.5 X10*3/uL (1.2-4.9); Mean Corpuscular HGB Conc 29.7 g/dl (31.0-36.0); Mean Corpuscular Hemoglobin 20.5 pg (27.0-33.0); Mean Corpuscular Volume 69.0 fL (80.0-98.0); NRBC Abs Auto 0.000 X10*3/uL (0.0-0.012); NRBC Pct Auto 0.0 /100WBC (0.0-0.2); Platelet Count 368 X10*3/uL (160-400); Red Blood Count 5.32 X10*6/uL (4.60-5.80); White Blood Count 9.9 X10*3/uL (4.8-10.8)
[2025-01-07 17:40] LABS: Iron 22 mcg/dL (45-160); Percent Iron Saturation 6 % (15-50); Total Iron Binding Capacity 339 mcg/dL (228-428); Unsaturated Iron Binding 317 ug/dL
[2025-01-07 17:43] LABS: Ferritin 7 ng/mL (20-250)
[2025-01-07 17:53] LABS: Folate 12.7 ng/mL (> or = 4.0); Vitamin B12 1346 pg/mL (200-900)
[2025-01-08 15:04] LABS: Immunoglobulin A 357 mg/dL (47-310)
== END 2025-01-07 15:39 | disposition home or self-care (01) ==
LOC: HO.LAB 15:38
PROVIDERS: PCP Internal Medicine; Visit Provider Internal Medicine
DX: D64.9 Anemia, unspecified (principal)
CPT/HCPCS: 36415; 82607; 82728; 82746; 82784; 83540; 85025; 86364

== ENCOUNTER 2025-01-31 11:18 | Outpatient (AMB) | payer BC, SELFPAY ==
--- OUTSIDE RECORDS SUMMARY | 2024-07-16 03:30 | XMS_ITS ---
Author Organization Kamar Johnson MD Address [address] [place], [place] [id number] Care Team Providers Care Project Manager Finance Name Role Phone Kamar Johnson Primary Care Provider Results Component Value Reference Range Notes Complete Blood Count Auto Di ff Reviewed date:07/31/2024 07:28:09 AM Interpretation:07-30-2024 Performing Lab:[facility], [address] [place] [phone] Notes/Report: White Blood Count 12.2 4.8-10.8 X10*3/uL Red Blood Count 4.55 4.60-5.80 X10*6/uL Hemoglobin 10.1 14.0-18.0 g/dl Hematocrit 33.9 42.0-52.0 % Mean Corpuscular Volume 74.5 80.0-98.0 fL Mean Corpuscular Hemoglobin 22.2 27.0-33.0 pg Mean Corpuscular HGB Conc 29.8 31.0-36.0 g/dl Red Cell Distribution Width 18.1 11.0-16.0 % Platelet Count 361 160-400 X10*3/uL Mean Platelet Volume 9.3 9.4-12.4 fL Neutrophils Percent Auto 51.3 45-73 % Imm Gran Pct Auto 0.7 0.0-0.4 % Lymphocytes Percent Auto 34.8 20-40 % Monocytes Percent Auto 9.7 2-11 % Eosinophils Percent Auto 2.8 0-4 % Basophils Percent Auto 0.7 0-2 % NRBC Pct Auto 0.0 0.0-0.2 /100WBC Neutrophils Absolute Auto 6.2 2.0-8.3 x10*3/u L Imm Gran Abs Auto 0.08 0.00-0.03 X10*3/uL Lymphocytes Absolute Auto 4.2 1.2-4.9 X10*3/u L Monocytes Absolute Auto 1.2 0.1-1.2 X10*3/uL Eosinophils Absolute Auto 0.3 0.0-0.4 X10*3/u L Basophils Absolute Auto 0.1 0.0-0.2 X10*3/uL NRBC Abs Auto 0.000 0.0-0.012 X10*3/uL REASON FOR VISIT CBC AUTO DIFF Encounters Encounter Location Date Provider Diagnosis Kamar Johnson MD [address] [place] [phone] 07/16/2024 Kamar Johnson Iron deficiency anemia, unspecified iron deficiency anemia type D50.9 Assessments Encounter Date Diagnosis (ICD Code) Assessment Notes Treatment Notes Treatment Clinical Notes Section Notes 07/16/2024 Iron deficiency anemia, unspecified iron deficiency anemia type (ICD-10 - D50.9) Plan Of Treatment Next Appt Details Provider Name:Kamar lynch, 03/11/2025 08:45:00 AM, [address] [place] [address], [phone], Provider Name:Kamar lynch, 06/07/2025 08:00:00 AM, [address] [place] [address], [phone], Provider Name:Kamar lynch, 06/17/2025 04:00:00 PM, [address] [place] [address], [phone], Progress Notes * Dominic WILKERSONOB:1980 (44 yo M)Acc No.[id number]:07/16/2024 Progress Note Patient: Davon DUNHAM Provider: Kelsea Johnson MD :1980 A ge:44 Y S ex:Male Date:07/16/2024 Address:[address] [place] [address] [place], [id number] Subjective: * Chief Complaints: * 1 . CBC AUTO DIFF. * Medical History: Objective: * Vitals: Assessment: * Assessment: 1. I abhi deficiency anemia, unspecified iron deficiency anemia type - D50.9 (Primary) ? Plan: * Treatment: * Procedure Codes: 3 6415 VENIPUNCT, ROUTINE* * * The named appointment provid er may or may not be the originator of this progress note, and it is not deemed complete until electronically signed by the appointment provider. Sign off status: Pending * Provider: Kelsea Johnson MD Date: 0 07/16/2024 Generated for Rehana torres/Roopa/Kristaitting on: 0 01/31/2025 03:36 PM EDT
--- OUTSIDE RECORDS SUMMARY | 2024-07-30 09:45 | XMS_ITS ---
Author Organization Kamar Johnson MD Address [address] [place] [id number] Care Team Providers Care Advertising Sales Manager Name Role Phone Kamar Johnson Primary Care Provider [phone] Allergies No Known Allergies Reason For Referral Reason Iron Deficiency anem ia Diagnosis 1 Iron deficiency anem ia, unspecified iron deficiency anemia type (D50.9) Referral Organization Kamar Johnson MD Referring Provider First Name Kamar Referring Provider Last Name Alex Referring Provider Speciality Internal M edicine Referred Provider Adrián Rios Referred Provider Specialty Gastroentero logy General Notes Abbey Garcia 0 07/30/2024 02:20:11 PM >info faxedJose Annette 08/02/2024 03:01:21 PM >per office being review by Jose Foster Annette 08/31/2024 11:20:40 AM >was told by office patient is aware of appt Referral Priority Routine Referral Appointment Date 12/11/2024 REASON FOR VISIT 2 week/ must see labs anemia Medications Medication SIG (Take, Route, Frequency, Duration) Notes Start Date End Date Status Tadalafil 20 MG TAKE 1/2 TABLET BY M OUTH ONCE A DAY NEEDED for 60 Active Doxepin HCl 10 MG 1 capsule at bedtime Orally Once a day Active Lisinopril 20 MG TAKE ONE TABLET BY M OUTH EVERY DAY Active buPROPion HCl ER (XL) 300 MG 1 tablet in the morning Orally Once a day Active Zepbound 2.5 MG/0.5ML 0.5 mL Subcutaneous Active LORazepam 1 MG 1 tablet as needed O rally prn Not-Taking Metoprolol Succinate ER 50 MG TAKE ONE TABLET BY MOUTH EVERY DAY Active Vital Signs Blood pressure systolic 190 mm Hg 07/31/19 25 Blood pressure diastolic 92 mm Hg 025 Height 64.5 in 07/30/2024 Weight 334 lbs 07/30/2024 BMI 56.44 kg/m2 07/30/2024 Encounters Encounter Location Date Provider Diagnosis Kamar Johnson MD [address] [place] [address] [address] [place], [place] [phone] 07/30/2024 Kamar Johnson Iron deficiency anemia, unspecified iron deficiency anemia type D50.9 and Essential hypertension I10 Assessments Encounter Date Diagnosis (ICD Code) Assessment Notes Treatment Notes Treatment Clinical Notes Section Notes 07/30/2024 Iron deficiency anemia, unspecified iron deficiency anemia type (ICD-10 - D50.9) although he had a colonoscopy 5 years ago i feel with the new anemia and persistant intermittant bleeding that we should have another colonoscopy now 07/30/2024 Essential hypertension (ICD-10 - I10) doing well Plan Of Treatment Medication Medication Name Sig Start Date Stop Date Notes Lisinopril 20 MG TAKE ONE TABLET BY M OUTH EVERY DAY Metoprolol Succinate ER 50 MG TAKE ONE T ABLET BY MOUTH EVERY DAY Treatment Notes Assessment Notes Iron deficiency anemia, unsp ecified iron deficiency anemia type although he had a colonoscopy 5 years ag o i feel with the new anemia and persistant intermittant bleeding that we should have another colonoscopy now Essential hypertension doing well Pending Test Test Name Order Date Complete Blood Count Auto Diff IRON PROFILE 07/30/2024 Referrals Referral Date Details 07/30/2024 07/30/2024, Iron Def iciency anemia, Adrián Rios Next Appt Details Follow Up: 6 Weeks, Reason: Provider Name:Kamar lynch, 03/11/2025 08:45:00 AM, [address] [place] [address], [address], [place], [place], [phone], Provider Name:Kamar lynch, 06/07/2025 08:00:00 AM, [address] [place] [address], [address], [place], [place], [phone], Provider Name:Kamar lynch, 06/17/2025 04:00:00 PM, [address] [place] [address], [address], [place], [place], [phone], Progress Notes * Dominic WILKERSONOB:1980 (44 yo M)Acc No.[id number]:07/30/2024 Patient: Davon DUNHAM Provider: Kelsea Johnson MD :1980 A ge:44 Y S ex:Male Date:07/30/2024 Address:[address] [place], [place] [id number] Subjective: * Chief Complaints: * 2 week/ must see labs anemia * HPI: S ymptom(s): patient is a 44 yo male here for 2 week follow up visit, has been seeing stools with tinting red, her to discuss recent blood work. * ROS: G eneral/Constitutional: Denies C hills. D enies F atigue. D enies F ever. D enies H eadache. E NT: Patient denies d ecreased sense of smell, any loss of taste, sore throat. D enies S ore throat. R espiratory: Denies C ough. D enies S hortness of breath at rest. D enies S hortness of breath with exertion. G astrointestinal: Denies D iarrhea. D enies N ausea. M usculoskeletal: Patient denies m uscle aches. P eripheral Vascular: Patient denies r ed and blue toes. * Medical History: * Surgical History: * Hospitalization/Major Diagno stic Procedure: * Medications: T akingZepbound 2.5 MG/0.5ML Solution Auto-injector 0.5 mL Subcutaneous buPROPion HCl ER (XL) 300 MG Tablet Extended Release 24 Hour 1 tablet in the morning Orally Once a day Metoprolol Succinate ER 50 MG Tablet Extended Release 24 Hour TAKE ONE TABLET BY MOUTH EVERY DAY Lisinopril 20 MG Tablet TAKE ONE TABLET BY MOUTH EVERY DAY Doxepin HCl 10 MG Capsule 1 capsule at bedtime Orally Once a day Tadalafil 20 MG Tablet TAKE 1/2 TABLET BY MOUTH ONCE A DAY NEEDED Taking Zepbound 2.5 MG/0.5ML Solution Auto-injector 0.5 mL Subcutaneous Taking buPROPion HCl ER (XL) 300 MG [...] Tablet TAKE 1/2 TABLET BY MOUTH ONCE A DAY NEEDED Not-Taking/PRNLORazepam 1 MG Tablet 1 tablet as needed Orally prn Medication List reviewed and reconciled with the patientNot-Taking/PRN LORazepam 1 MG Tablet 1 tablet as needed Orally prn Medication List reviewed and reconciled with the patient * Allergies: N .K.D.A.yes[Allergies Verified] Objective: * Vitals: H t: 64.5, Wt: 334, BMI:56.44, BP:190/92, Repeat BP:120/86, Wt-k.5. * Examination: G eneral Examination: GENERAL APPEARANCE: a lert, well hydrated, in no distress.? HEAD: n ormocephalic. SKIN: g ood turgor. HEART: n o murmurs, rubs, gallops, regular rate and rhythm.? LUNGS: n o wheezes, rales, rhonchi, good air movement, clear to auscultation bilaterally. Assessment: * Assessment: 1. I abhi deficiency anemia, unspecified iron deficiency anemia type - D50.9 (Primary) ? 2 . E ssential hypertension - I10 Plan: * Treatment: 2. E ssential hypertension Continue Metoprolol Succinate ER Tablet Extended Release 24 Hour, 50 MG, TAKE ONE TABLET BY MOUTH EVERY DAY; C ontinue Lisinopril Tablet, 20 MG, TAKE ONE TABLET BY MOUTH EVERY DAY. Notes: doing well * Procedure Codes: * Follow Up: 6 Weeks * * Sign off status: Completed true * Provider: Kelsea Johnson MD Date: 0 07/30/2024 Generated for Rehana torres/Roopa/Charanjit on: 0 01/31/2025 03:36 PM EDT History and Physical Notes * HPI (History of Present Illness) Category Sub-Category Detail Notes Category Not es Symptom(s) patient is a 44 yo male here for 2 week follow up visit, has been seeing stools with tinting red, her to discuss recent blood work Examination Category Sub-Category Detail Notes Category Not es General Examination GENERAL APPEARANCE: alert, w ell hydrated, in no distress HEAD: normocephalic HEART: no murmurs, rubs, ga llops, regular rate and rhythm LUNGS: no wheezes, rales, r honchi, good air movement, clear to auscultation bilaterally SKIN: good turgor Consultation Request Notes Referral Date Referring Provider Referred Provider Not es 07/30/2024 Kamar Johnson Robert Iron Defic iency anemia
--- OUTSIDE RECORDS SUMMARY | 2024-09-13 03:30 | XMS_ITS ---
Author Organization Kamar Johnson MD Address [address] [place], [place] [phone] Care Team Providers Care Motorcycle Maker Name Role Phone Kamar Johnson Primary Care Provider Results Component Value Reference Range Notes Complete Blood Count Auto Di ff Reviewed date:09/13/2024 04:56:47 PM Interpretation: Performing Lab:[facility], [address] [place] [phone] Notes/Report: White Blood Count 10.3 4.8-10.8 X10*3/uL [...] date:09/20/2024 12:15:25 PM Interpretation:CBACK IRON 09/20 Performing Lab:[facility], [address] [place] [phone] Notes/Report: Iron 20 45-160 mcg/dL Total Iron Binding Capacity 340 228-428 mcg/d L Percent Iron Saturation 6 15-50 % Unsaturated Iron Binding 320 REASON FOR VISIT Iron profile, CBS and diff Encounters Encounter Location Date Provider Diagnosis Kamar Johnson MD [address] [place] [address] [place] [phone] 09/13/2024 Kamar Johnson Iron deficiency anemia, unspecified iron deficiency anemia type D50.9 Assessments Encounter Date Diagnosis (ICD Code) Assessment Notes Treatment Notes Treatment Clinical Notes Section Notes 09/13/2024 Iron deficiency anemia, unspecified iron deficiency anemia type (ICD-10 - D50.9) Plan Of Treatment Next Appt Details Provider Name:Kamar lynch, 03/11/2025 08:45:00 AM, [address] [place] [address], [address] [place] [address], [phone], Provider Name:Kamar lynch, 06/07/2025 08:00:00 AM, [address] [place] [address], [address], [phone], Provider Name:Kamar lynch, 06/17/2025 04:00:00 PM, [address] [place] [address], [address], [phone], Progress Notes * Randall WILKERSON:1980 (44 yo M)Acc No.[id number]:09/13/2024 Progress Note Patient: Davon DUNHAM Provider: Kelsea Johnson MD :1980 A ge:44 Y S ex:Male Date:09/13/2024 Address:[address] [place], [place] [phone] Subjective: * Chief Complaints: * 1 . [...] 09/13/2024 Generated for Rehana torres/Roopa/Kristaitting on: 0 01/31/2025 03:36 PM EDT
--- OUTSIDE RECORDS SUMMARY | 2024-09-20 06:15 | XMS_ITS ---
Author Organization Kamar Johnson MD Address [address] [place] [phone] Care Team Providers Care Manager Application Development Name Role Phone Kamar Johnson Primary Care Provider Allergies No Known Allergies Reason For Referral Reason CARPAL TUNNEL ON BOT H SIDES Diagnosis 1 Carpal tunnel syndro me on both sides (G56.03) Referral Organization Kamar Johnson MD Referring Provider First Name Kamar Referring Provider Last Name Alex Referring Provider Speciality Internal M edicine Referred Provider Julia Quick Referred Provider Specialty Orthopedic S urgery General Notes Debbi Evans 09/20/2024 10:42:27 AM >REFERRAL FAXED TO DR AHUMADA OFFICE, Debbi Evans 09/28/2024 09:07:56 AM >PER CALL TO DR BURR, THEY ARE BEHIND ON REFERRALS . CHECK BACK 1 WEEK, Debbi Evans 10/05/2024 09:49:36 AM >PATIENT STILL NOT BOOKED, BUT THEY HAVE REFERRAL AND HE CAN CALL IF HE WANTS TO SCHEDULE OTHERWISE THEY WILL CONTACT HIM, Debbi Evans 10/19/2024 08:50:46 AM >APPT SCHEDULED 11/30/24AT 11:30AM, Debbi Evans 12/06/2024 01:53:46 PM >APPT CHANGED TO DECEMBER 28, Debbi Evans 12/31/2024 08:25:48 AM >OFFICE NOTE RECD Referral Priority Routine Referral Appointment Date 12/28/2024 REASON FOR VISIT CBACK IRON PROFILE Medications Medication SIG (Take, Route, Frequency, Duration) Notes Start Date End Date Status Metoprolol Succinate ER 50 MG TAKE ONE TABLET BY MOUTH EVERY DAY Active LORazepam 1 MG 1 tablet as needed O rally prn Not-Taking Lisinopril 20 MG TAKE ONE TABLET BY M OUTH EVERY DAY Active Tadalafil 20 MG TAKE 1/2 TABLET BY M OUTH ONCE A DAY NEEDED for 60 Active Doxepin HCl 10 MG 1 capsule at bedtime Orally Once a day Active buPROPion HCl ER (XL) 300 MG 1 tablet in the morning Orally Once a day Active Zepbound 2.5 MG/0.5ML 0.5 mL Subcutaneous Active Vital Signs Blood pressure systolic 112 mm Hg 09/21/19 25 Blood pressure diastolic 70 mm Hg 025 Height 64.5 in 09/20/2024 Weight 300 lbs 09/20/2024 BMI 50.69 kg/m2 09/20/2024 weight is down 34 pounds [facility]-- Encounters Encounter Location Date Provider Diagnosis Kamar Johnson MD [address] [place] [address] [place] [phone] 09/20/2024 Kamar Johnson Iron deficiency anemia, unspecified iron deficiency anemia type D50.9 and Carpal tunnel syndrome on both sides G56.03 Assessments Encounter Date Diagnosis (ICD Code) Assessment Notes Treatment Notes Treatment Clinical Notes Section Notes 09/20/2024 Iron deficiency anemia, unspecified iron deficiency anemia type (ICD-10 - D50.9) gettin g colonoscopy in 09/20/2024 Carpal tunnel syndrome on both sides (ICD-10 - G56.03) referral to dr quick for surgery/ REFERRAL FAXED TO DR AHUMADA OFFICE FOR NEW PATIENT APPT Plan Of Treatment Treatment Notes Assessment Notes Iron deficiency anemia, unsp ecified iron deficiency anemia type gettin g colonoscopy in november Carpal tunnel syndrome on both sides ref erral to dr quick for surgery/ REFERRAL FAXED TO DR AHUMADA OFFICE FOR NEW PATIENT APPT Referrals Referral Date Details 09/20/2024 09/20/2024, CARPAL T UNNEL ON BOTH SIDES, Julia Quick Next Appt Details Follow Up: 2 Months, Reason: Provider Name:Kamar lynch, 03/11/2025 08:45:00 AM, [address], [address], [place], [place], [phone], Provider Name:Kamar lynch, 06/07/2025 08:00:00 AM, [address], [address], [place], [phone], Provider Name:Kamar Oseguera ier, 06/17/2025 04:00:00 PM, [address], [address], [place], [phone], Progress Notes * Dominic WILKERSONOB:1980 (44 yo M)Acc No.[id number]:09/20/2024 Patient: Davon DUNHAM Provider: Kelsea Johnson MD :1980 A ge:44 Y S ex:Male Date:09/20/2024 Address:[address] [place] [address] Subjective: * Chief Complaints: * C BACK IRON PROFILE * HPI: S ymptom(s): patient is a 44 yo male here to discuss recent iron profile/ is doing much better on meds. will stay on 2.5 until it stops workinngl. * ROS: G eneral/Constitutional: Denies C hills. D enies F atigue. D enies F ever. D enies H eadache. E NT: Denies S ore throat. R espiratory: Denies C ough. D enies S hortness of breath at rest. D enies S hortness of breath with exertion. G astrointestinal: Comments h ad some rectal bleeding in the past. had colonoscopy 2020 for rectal bleeding. D enies D iarrhea. D enies N ausea. * Medical History: * Surgical History: * Hospitalization/Major Diagno stic Procedure: * Medications: T akingZepbound 2.5 MG/0.5ML Solution Auto-injector 0.5 mL Subcutaneous buPROPion HCl ER (XL) 300 MG Tablet Extended Release 24 Hour 1 tablet in the morning Orally Once a day Doxepin HCl 10 MG Capsule 1 capsule at bedtime Orally Once a day Tadalafil 20 MG Tablet TAKE 1/2 TABLET BY MOUTH ONCE A DAY NEEDED Metoprolol Succinate ER 50 MG Tablet Extended Release 24 Hour TAKE ONE TABLET BY MOUTH EVERY DAY Lisinopril 20 MG Tablet TAKE ONE TABLET BY MOUTH EVERY DAY Taking Zepbound 2.5 MG/0.5ML Solution Auto-injector 0.5 mL Subcutaneous Taking buPROPion HCl ER (XL) 300 MG Tablet Extended Release 24 Hour 1 tablet in the morning Orally Once a day Taking Doxepin HCl 10 MG Capsule 1 capsule at bedtime Orally Once a day Taking Tadalafil 20 MG Tablet TAKE 1/2 TABLET BY MOUTH ONCE A DAY NEEDED Taking Metoprolol Succinate ER 50 MG Tablet [...] Objective: * Vitals: H t: 64.5, Wt: 300, BMI:50.69, BP:112/70, Wt-k.08. weight is down 34 pounds since 07-30-24. * P ast Orders: Lab:Complete Blood Count Aut o Diff * Collection Date 09/13/2024 07/16/2024 Collection Time 07:30 AM 07:30 AM Order Date 09/13/2024 07/16/2024 Result: 07-30-2024 White Blood Count 10.3 (Ref Range: 4.8-10.8 X10*3/uL) 12.2 H (Ref Range: 4.8-10.8 X10*3/uL) Red Blood Count 4.54 L (Ref Range: 4.60-5.80 X10*6/uL) 4.55 L (Ref Range: 4.60-5.80 X10*6/uL) Hemoglobin 9.7 L (Ref Range: 14.0-18.0 g/dl) 10.1 L (Ref Range: 14.0-18.0 g/dl) Hematocrit 32.8 L (Ref Range: 42.0-52.0 %) 33.9 L (Ref Range: 42.0-52.0 %) Mean Corpuscular Volume 72.2 L (Ref Range: 80.0-98.0 fL) 74.5 L (Ref Range: 80.0-98.0 fL) Mean Corpuscular Hemoglobin 21.4 L (Ref Range: 27.0-33.0 pg) 22.2 L (Ref Range: 27.0-33.0 pg) Mean Corpuscular HGB Conc 29.6 L (Ref Range: 31.0-36.0 g/dl) 29.8 L (Ref Range: 31.0-36.0 g/dl) Red Cell Distribution Width 17.9 H (Ref Range: 11.0-16.0 %) 18.1 H (Ref Range: 11.0-16.0 %) Platelet Count 369 (Ref Range: 160-400 X10*3/uL) 361 (Ref Range: 160-400 X10*3/uL) Mean Platelet Volume 9.8 (Ref Range: 9.4-12.4 fL) 9.3 L (Ref Range: 9.4-12.4 fL) Neutrophils Percent Auto 54.7 (Ref Range: 45-73 %) 51.3 (Ref Range: 45-73 %) Imm Gran Pct Auto 0.3 (Ref Range: 0.0-0.4 %) 0.7 H (Ref Range: 0.0-0.4 %) Lymphocytes Percent Auto 31.4 (Ref Range: 20-40 %) 34.8 (Ref Range: 20-40 %) Monocytes Percent Auto 9.6 (Ref Range: 2-11 %) 9.7 (Ref Range: 2-11 %) Eosinophils Percent Auto 3.4 (Ref Range: 0-4 %) 2.8 (Ref Range: 0-4 %) Basophils Percent Auto 0.6 (Ref Range: 0-2 %) 0.7 (Ref Range: 0-2 %) NRBC Pct Auto 0.0 (Ref Range: 0.0-0.2 /100WBC) 0.0 (Ref Range: 0.0-0.2 /100WBC) Neutrophils Absolute Auto 5.6 (Ref Range: 2.0-8.3 x10*3/uL) 6.2 (Ref Range: 2.0-8.3 x10*3/uL) Imm Gran Abs Auto 0.03 (Ref Range: 0.00-0.03 X10*3/uL) 0.08 H (Ref Range: 0.00-0.03 X10*3/uL) Lymphocytes Absolute Auto 3.2 (Ref Range: 1.2-4.9 X10*3/uL) 4.2 (Ref Range: 1.2-4.9 X10*3/uL) Monocytes Absolute Auto 1.0 (Ref Range: 0.1-1.2 X10*3/uL) 1.2 (Ref Range: 0.1-1.2 X10*3/uL) Eosinophils Absolute Auto 0.4 (Ref Range: 0.0-0.4 X10*3/uL) 0.3 (Ref Range: 0.0-0.4 X10*3/uL) Basophils Absolute Auto 0.1 (Ref Range: 0.0-0.2 X10*3/uL) 0.1 (Ref Range: 0.0-0.2 X10*3/uL) NRBC Abs Auto 0.000 (Ref Range: 0.0-0.012 X10*3/uL) 0.000 (Ref Range: 0.0-0.012 X10*3/uL) * Examination: G eneral Examination: GENERAL APPEARANCE: a lert, well hydrated, in no distress.? HEAD: n ormocephalic. SKIN: g ood turgor. HEART: n o murmurs, rubs, gallops. LUNGS: n o wheezes, rales, rhonchi, good air movement, clear to auscultation bilaterally. Assessment: * Assessment: 1. I abhi deficiency anemia, unspecified iron deficiency anemia type - D50.9 (Primary) ? 2 . C arpal tunnel syndrome on both sides - G56.03 Plan: * Treatment: 2. C arpal tunnel syndrome on both sides Notes: referral to dr quick for surgery/ REFERRAL FAXED TO DR AHUMADA OFFICE FOR NEW PATIENT APPT? Referral To:Julia Quick Orthopedic Surgery Reason:CARPAL TUNNEL ON BOTH SIDES * Procedure Codes: * Follow Up: 2 Months * * Sign off status: Completed true * Provider: Kelsea Johnson MD Date: 0 09/20/2024 Generated for Rehana torres/Roopa/Kristaitting on: 0 01/31/2025 03:37 PM EDT History and Physical Notes * HPI (History of Present Illness) Category Sub-Category Detail Notes Category Not es Symptom(s) patient is a 44 yo male here to discuss recent iron profile/ is doing much better on meds. will stay on 2.5 until it stops workinngl Examination Category Sub-Category Detail Notes Category Not es General Examination GENERAL APPEARANCE: alert, w ell hydrated, in no distress HEAD: normocephalic HEART: no murmurs, rubs, ga llops LUNGS: no wheezes, rales, r honchi, good air movement, clear to auscultation bilaterally SKIN: good turgor Consultation Request Notes Referral Date Referring Provider Referred Provider Not es 09/20/2024 Kamar Johnson, Julia CARPAL TUNNEL ON BOTH SIDES
--- OUTSIDE RECORDS SUMMARY | 2024-10-30 10:00 | XMS_ITS ---
Author Organization [facility] [address] Address [address] [place] [address] Care Team Providers Care Concrete Pipe Plant Supervisor Name Role Phone Kamar Johnson Primary Care Provider UnavailCHANDLER Pereira [phone] Encounters Encounter Location Date Provider Diagnosis [facility] [address] [place] [address] 10/30/2024 CHANDLER BELTRÁN Plan Of Treatment Next Appt Details Provider Name:CHANDLER Thacker, 03/07/2025 09:00:00 AM, [address], [address], [place], [address], Progress Notes * Davon WILKERSON KDOB: [birth year] (44 yo M)Acc No.[id number]:10/30/2024 Patient: Abdelrahman DUNHAMvahid Cárdenas Provider: Mckinley BELTRÁN PA-C :1980 A ge:44 Y S ex:Male Date:10/30/2024 Address:[address] [place], [place] [id number] Pcp:Kamar Johnson Subjective: * Chief Complaints: * * Medical History: Objective: * Vitals: Assessment: Plan: * Treatment: * Images: Billing Information: * Visit Code: * Procedure Codes: * Electronic signature of SANIYA BELTRÁN PA-C on 01/31/2025 at 03:36 PM EDT Sign off status: Pending * Provider: Mckinley BELTRÁN PA-C Date: 10/30/2024 Generated for Rehana torres/Roopa/eTransmitting on: 0 01/31/2025 03:36 PM EDT
--- OUTSIDE RECORDS SUMMARY | 2024-11-20 05:00 | XMS_ITS ---
Author Organization Kamar Johnson MD Address [address] [place], [place] [phone] Care Team Providers Care Insurance And Financial Services Agent Name Role Phone Kamar Johnson Primary Care Provider Allergies No Known Allergies REASON FOR VISIT 2 MO F/U Medications Medication SIG (Take, Route, Frequency, Duration) Notes Start Date End Date Status Doxepin HCl 10 MG 1 capsule at bedtime Orally Once a day Active Tadalafil 20 MG TAKE 1/2 TABLET BY M OUTH ONCE A DAY NEEDED for 60 Active Lisinopril 20 MG TAKE ONE TABLET BY M OUTH EVERY DAY Active Zepbound 2.5 MG/0.5ML 0.5 mL Subcutaneous Active buPROPion HCl ER (XL) 300 MG 1 tablet in the morning Orally Once a day Active LORazepam 1 MG 1 tablet as needed O rally prn Not-Taking Metoprolol Succinate ER 50 MG TAKE ONE TABLET BY MOUTH EVERY DAY Active Problems Problem Type SNOMED Code ICD Code Onset Dates Problem Status W/U Status Risk Notes Problem [id number] BMI 45.0-49.9, adult (Z68.42) Active confirmed Vital Signs Blood pressure systolic 112 mm Hg 11/21/19 25 Blood pressure diastolic 70 mm Hg 025 Height 64.5 in 11/20/2024 Weight 274 lbs 11/20/2024 BMI 46.3 kg/m2 11/20/2024 weight is down 26 pounds sin ce 5-1-25 Encounters Encounter Location Date Provider Diagnosis Kamar Johnson MD [address] [place], [place] [phone] 11/20/2024 Kamar Johnson Essential hypertension I10 ; Morbid obesity E66.01 and BMI 45.0-49.9, adult Z68.42 Assessments Encounter Date Diagnosis (ICD Code) Assessment Notes Treatment Notes Treatment Clinical Notes Section Notes 11/20/2024 Essential hypertension (ICD-10 - I10) doing great with weight loss, stable BP, will continue current regiment 11/20/2024 Morbid obesity (ICD-10 - E66.01) doing great we discussed some of the pitfalls, will continue current regiment 11/20/2024 BMI 45.0-49.9, adult (ICD-10 - Z68.42) Plan Of Treatment Medication Medication Name Sig Start Date Stop Date Notes Lisinopril 20 MG TAKE ONE TABLET BY M OUTH EVERY DAY Zepbound 2.5 MG/0.5ML 0.5 mL Subcutaneous Metoprolol Succinate ER 50 MG TAKE ONE TABLET BY MOUTH EVERY DAY Treatment Notes Assessment Notes Essential hypertension doing great with weight loss, stable BP, will continue current regiment Morbid obesity doing great we discu ssed some of the pitfalls, will continue current regiment Next Appt Details Follow Up: 3 Months, Reason: Provider Name:Kamar lynch, 03/11/2025 08:45:00 AM, [address] [place] [address], [address], [phone], Provider Name:Kamar lynch, 06/07/2025 08:00:00 AM, [address] [place] [address], [address], [phone], Provider Name:Kamar lynch, 06/17/2025 04:00:00 PM, [address] [place] [address], [address], [phone], Progress Notes * LAMONTDominicOB:1980 (44 yo M)Acc No.[id number]:11/20/2024 Progress Notes Patient: Davon DUNHAM Provider: Kelsea Johnson MD :1980 A ge:44 Y S ex:Male Date:11/20/2024 Address:[address] [place] [address] [address] [id number] Subjective: * Chief Complaints: * 2 MO F/U * HPI: S ymptom(s): patient is a 44 yo male here for 2 month follow up visit/ has lost 50 pounds since starting on meds. is on the lowest dose/ walking a lot more. * ROS: G eneral/Constitutional: Denies C hills. D enies F atigue. D enies F ever. D enies H eadache. E NT: Denies S ore throat. R espiratory: Denies C ough. D enies S hortness of breath at rest. D enies S hortness of breath with exertion. G astrointestinal: Denies D iarrhea. D enies N ausea. * [...] Objective: * Vitals: H t: 64.5, Wt: 274, BMI:46.3, BP:112/70, Wt-k.29. weight is down 26 pounds since 09-20-24. * Examination: G eneral Examination: GENERAL APPEARANCE: a lert, well hydrated, in no distress.? SKIN: g ood turgor. HEART: r egular rate and rhythm, no murmurs, rubs, gallops.? LUNGS: n o wheezes, rales, rhonchi, good air movement, clear to auscultation bilaterally. Assessment: * Assessment: 1. E ssential hypertension - I10 (Primary) 2 . M orbid obesity - E66.01? 3. B SC 45.0-49.9, adult - Z68.42 Plan: * Treatment: 2. M orbid obesity Continue Zepbound Solution Auto-injector, 2.5 MG/0.5ML, 0.5 mL, Subcutaneous. Notes: doing great we discussed some of the pitfalls, will continue current regiment * Procedure Codes: * Follow Up: 3 Months * * Sign off status: Completed true * Provider: Kelsea Johnson MD Date: 11/20/2024 Generated for Rehana torres/Roopa/Kristaitting on: 01/31/2025 03:37 PM EDT History and Physical Notes * HPI (History of Present Illness) Category Sub-Category Detail Notes Category Not es Symptom(s) patient is a 44 yo male here for 2 month follow up visit/ has lost 50 pounds since starting on meds. is on the lowest dose/ walking a lot more. Examination Category Sub-Category Detail Notes Category Not es General Examination GENERAL APPEARANCE: alert, w ell hydrated, in no distress HEART: regular rate and rhy thm, no murmurs, rubs, gallops LUNGS: no wheezes, rales, r honchi, good air movement, clear to auscultation bilaterally SKIN: good turgor
--- OUTSIDE RECORDS SUMMARY | 2024-12-11 05:20 | XMS_ITS ---
Author Organization [facility] Address [address] [place] [address] Care Team Providers Care Beef Grader Name Role Phone Alex DAVID, Kamar Primary Care Provider Adrián Rocha [phone] REASON FOR VISIT Patient presents today for anemia Encounters Encounter Location Date Provider Diagnosis [facility] [address] [place] [phone] 12/11/2024 Adrián Rios Plan Of Treatment No Information Progress Notes * ANN WILKERSONOB:1980 (44 yo M)Acc No.[id number]:12/11/2024 Progress Notes Patient: HUBER DUNHAM Provider: Virgie Rios MD :1980 A ge:44 Y S ex:Male Date:12/11/2024 Address:[address] [place], [place] [address] [facility] [place] Pcp:Kamar Johnson MD Subjective: * Chief Complaints: * 1 . Patient presents today for anemia. * Medical History: Objective: * Vitals: Assessment: Plan: * Treatment: * * The named appointment provid er may or may not be the originator of this progress note, and it is not deemed complete until electronically signed by the appointment provider. Sign off status: Pending * Provider: Virgie Rios MD Date: 0 12/11/2024 Generated for Ricoi brian/Fajazmineg/eTransmitting on: 0 01/31/2025 03:36 PM EDT
--- NOTE | 2025-01-31 10:51 | MHC.OFFVISPS ---
Intake Intake Visit Reasons: depression Allergies No Known Allergies Allergy (Verified 01/31/25 12:32) Medication List - Last Reconciled 01/31/25 by Jimy Maldonado MD bupropion HCl XL 300 mg PO DAILY doxepin 10 mg PO BEDTIME PRN 30 days lisinopril 20 mg PO DAILY lorazepam 0.5 - 1 mg (0.5 - 1 x 1 mg) PO DAILY PRN metoprolol succinate ER 50 mg PO DAILY tirzepatide (weight loss) (Zepbound) mg subcut HPI- Psychiatric Chief Complaint: depression HPI Narrative: Patient seen psychiatric follow-up telehealth appointment. 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 Has continued to lose weight. Things going well in the family no new medical concerns. Continues on Wellbutrin lorazepam as needed Urged to limit use doxepin at bedtime for sleep has generally been working well. Past Psychiatric History: Past history of depression intermittent panic attacks Mental Status Exam Mental Status Exam Narrative: Mental Status Exam Narrative: Appearance: Casually dressed Behavior: Cooperative appropriate psychomotor: Within normal limits Speech: Normal volume and prosody Thought proccess logical and goal-directed Thought content: Future oriented Mood: Euthymic Affect: Appropriate to mood full affect SI:denies HI:denies VH/AH:none Delusions: None Insight/judgment: Good insight and judgment Memory/cog: Intact Telehealth Telehealth Location of provider rendering services: practice address Location of patient: address on file Patient Identification confirmed using: Name, : Yes Telehealth method: video Patient verbally consented to treatment: Yes Minutes spent on Phone/Video with Pt.: 13 Assessment and Plan Assessment & Plan (1) Major depression, recurrent, full remission: Status: Acute Code(s): F33.42 - Major depressive disorder, recurrent, in full remission (2) Generalized anxiety disorder: Status: Acute Code(s): F41.1 - Generalized anxiety disorder Plan Patient will discuss with his primary care having them take over prescribing. Patient has been stable for an extended period of time maintenance needs specialty follow-up can be available as needed. Continue Wellbutrin low-dose doxepin lorazepam urged limited use Medications: Refilled lorazepam 0.5 - 1 mg (0.5 - 1 x 1 mg) PO DAILY PRN 30 tabs 2RF anxiety bupropion HCl XL 300 mg PO DAILY 90 tabs 1RF bupropion HCl XL 300 mg PO DAILY 90 tabs 1RF doxepin 10 mg PO BEDTIME PRN 30 caps 2RF insomnia 30 days doxepin 10 mg PO BEDTIME PRN 30 caps 2RF insomnia 30 days lorazepam 0.5 - 1 mg (0.5 - 1 x 1 mg) PO DAILY PRN 30 tabs 2RF anxiety Counseling and coordination of Care Details: I spent [] minutes reviewing the record, seeing the patient and documenting in the medical record. Counseling provided to the patient/caregiver as outlined below. Addressed patient/caregiver concerns regarding current medication regime including effective adherence. Addressed patient/caregiver concerns regarding diagnosis and prognosis including accuracy of diagnosis, prognosis over time, impact of diagnosis. Addressed patient/caregiver concerns regarding impact of recent stressors. PFSH Medical History Depression HTN (hypertension) Generalized anxiety disorder OMARI on CPAP Morbid obesity Surgical History (Updated 01/31/25 @ 12:32 by Kiersten Birch RN) Hx of colonoscopy Social History Are you a primary animal caretaker supervisor to a significant other at home: No Do you presently have visiting nurse or other home services: No Patient Tobacco Use Status: Never used Tobacco Substance Use Frequency: Occasionally Have you been hit, kicked, punched, or otherwise hurt by someone within the past year? 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
--- OUTSIDE RECORDS SUMMARY | 2025-01-31 15:36 | XMS_ITS | Patient Health Record ---
Author Organization [facility] [address] Address [address] [place] [address] Care Team Providers Care Certified Nurse Aide Name Role Phone Kamar Johnson Primary Care Provider CHANDLER Beltran [phone] Allergies No Known Allergies Reason For Referral Diagnosis 1 Morbid obesity (E66. 01) Referred Provider Kamar Johnson Referred Provider Specialty Weight Manag ement Referral Priority Routine Medications Medication SIG (Take, Route, Frequency, Duration) Notes Start Date End Date Status Zepbound 5 MG/0.5ML Inject 5mg Subcutane ous weekly; Duration: 30 days Active Doxepin HCl 10 MG 1 capsule at bedtime Orally Once a day Active LORazepam 1 MG 1 tablet at bedtime as needed Orally Once a day Active Lisinopril 20 MG 1 tablet Orally Once a day Active Tadalafil 20 MG 1/2 tablet as needed Orally Once a day Active Metoprolol Succinate ER 50 MG 1 tablet Orally Once a day A ctive buPROPion HCl ER (XL) 300 MG 1 tablet in the morning Orally Once a day Active Problems Problem Type SNOMED Code ICD Code Onset Dates Problem Status W/U Status Risk Notes Problem Essential hypertension (94657019) Essential hypertension (I10) Active confirmed Problem Morbid obesity (654086720) Morbid obesity (E66.01) Active confirmed Problem Body mass index 40+ - morbidly obese (609432674) BMI 40.0-44.9, adult (Z68.41) Active confirmed Problem Iron deficiency anemia secondary to inadequate dietary iron intake (626801332) Iron deficiency anemia secondary to inadequate dietary iron intake (D50.8) Active confirmed Problem Generalized anxiety disorder (68970844) Anxiety, generalized (F41.1) Active confirmed Problem Moderate major depression (373583) 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) Active confirmed Vital Signs Heart Rate 88 /min 01/17/2025 Blood pressure diastolic 94 mm Hg 01/17/2025 Oximetry 97 % 01/17/2025 Height 64 in 01/17/2025 Blood pressure systolic 138 mm Hg 01/17/2025 Weight 260.9 lbs 01/17/2025 BMI 44.78 kg/m2 01/17/2025 Encounters Encounter Location Date Provider Diagnosis [facility] [address] [address] 07/25/2024 [facility] Morbid obesity E66.0 1 ; BMI 50.0-59.9, adult Z68.43 ; Essential hypertension I10 and Nutritional counseling Z71.3 [facility] [address] [address] 08/21/2024 [facility] BARNHART Morbid obesity E66.0 1 ; BMI 50.0-59.9, adult Z68.43 ; Essential hypertension I10 and Nutritional counseling Z71.3 [facility] [address] [address] 09/20/2024 [facility] Morbid obesity E66.0 1 ; BMI 50.0-59.9, adult Z68.43 ; Essential hypertension I10 and Nutritional counseling Z71.3 [facility] [address] [facility] [address] [place] [address] 11/06/2024 [facility] Morbid obesity E66.0 1 ; BMI 45.0-49.9, adult Z68.42 ; Essential hypertension I10 and Nutritional counseling Z71.3 [facility] [address] [address] 12/11/2024 [facility] Morbid obesity E66.0 1 ; BMI 45.0-49.9, adult Z68.42 ; Essential hypertension I10 and Nutritional counseling Z71.3 [facility] [address] [address] 01/17/2025 [facility] Morbid obesity E66.0 1 ; BMI 40.0-44.9, adult Z68.41 ; Essential hypertension I10 and Nutritional counseling Z71.3 [facility] [address] 299 [facility] [address] [place] [address] 07/25/2024 CHANDLER BARNHART [facility] [address] [facility] [address] [place] [address] 10/18/2024 CHANDL[facility] BARNHART Morbid obesity E66.0 [address] [facility] [address] [facility] [address] [place] [address] 11/12/2024 CHANDLER CORRALHAM [facility] [address] [facility] [address] [place] [address] 12/26/2024 CHANDLER CORRALHAM [facility] [address] [facility] [address] [place] [address] 12/26/2024 CHANDL[facility] CORRALHAM Assessments Encounter Date Diagnosis (ICD Code) Assessment [...] reviewed. Dictation completed with the use of [employer] voice recognition software, prone to medical misidentifications [...] reviewed. Dictation completed with the use of [employer] voice recognition software, prone to medical misidentifications [...] reviewed. Dictation completed with the use of [employer] voice recognition software, prone to medical misidentifications [...] reviewed. Dictation completed with the use of [employer] voice recognition software, prone to medical misidentifications [...] reviewed. Dictation completed with the use of [employer] voice recognition software, prone to medical misidentifications [...] reviewed. Dictation completed with the use of [employer] voice recognition software, prone to medical misidentifications [...] reviewed. Dictation completed with the use of [employer] voice recognition software, prone to medical misidentifications and grammatical errors. All errors are unintentional. Although the practitioner does try to identify and correct errors, some may be present. Please do not hesitate to contact the practitioner for clarification. Total time was 30 minutes spent with >50% on coordination of care and patient education. 01/17/2025 Morbid obesity (ICD-10 - E66.01) Davon is a 44-year-old male with a PMH of HTN, depression, anxiety that presents for weight management follow-up. Reviewed [facility] holistic and medical approach to weight loss with emphasis on lifestyle modification. 01/17/2025: Weight: 260.9, BMI: 44.8 (-7lbs) SECA reviewed, reveals over 5 pounds of fat loss and 1 pound muscle mass loss. Patient encouraged to continue making health-conscious diet choices and prioritizing protein intake. Cussed importance of maintaining active lifestyle. Plan to increase dose of Zepbound to 5 mg SC weekly and follow-up in 6 weeks. 12/11/2024: Weight: 267.4, BMI: 45.9. (-13lbs) 11/06/2024: Weight: 280.7, BMI: 48.2. (-18lbs) 09/20/2024: [...] reviewed. Dictation completed with the use of [employer] voice recognition software, prone to medical misidentifications and grammatical errors. All errors are unintentional. Although the practitioner does try to identify and correct errors, some may be present. Please do not hesitate to contact the practitioner for clarification. Total time was 30 minutes spent with >50% on coordination of care and patient education. 01/17/2025 BMI 40.0-44.9, adult (ICD-10 - Z68.41) Davon is a 44-year-old male with a PMH of HTN, depression, anxiety that presents for weight management follow-up. Reviewed [facility] holistic and medical approach to weight loss with emphasis on lifestyle modification. 01/17/2025: Weight: 260.9, BMI: 44.8 (-7lbs) SECA reviewed, reveals over 5 pounds of fat loss and 1 pound muscle mass loss. Patient encouraged to continue making health-conscious diet choices and prioritizing protein intake. Cussed importance of maintaining active lifestyle. Plan to increase dose of Zepbound to 5 mg SC weekly and follow-up in 6 weeks. 12/11/2024: Weight: 267.4, BMI: 45.9. (-13lbs) 11/06/2024: Weight: 280.7, BMI: 48.2. (-18lbs) 09/20/2024: [...] reviewed. Dictation completed with the use of Dragon voice recognition software, prone to medical misidentifications [...] reviewed. Dictation completed with the use of [employer] voice recognition software, prone to medical misidentifications and grammatical errors. All errors are unintentional. Although the practitioner does try to identify and correct errors, some may be present. Please do not hesitate to contact the practitioner for clarification. Total time was 30 minutes spent with >50% on coordination of care and patient education. 01/17/2025 Essential hypertension (ICD-10 - I10) Davon is a 44-year-old male with a PMH of HTN, depression, anxiety that presents for weight management follow-up. Reviewed [facility] holistic and medical approach to weight loss with emphasis on lifestyle modification. 01/17/2025: Weight: 260.9, BMI: 44.8 (-7lbs) SECA reviewed, reveals over 5 pounds of fat loss and 1 pound muscle mass loss. Patient encouraged to continue making health-conscious diet choices and prioritizing protein intake. Cussed importance of maintaining active lifestyle. Plan to increase dose of Zepbound to 5 mg SC weekly and follow-up in 6 weeks. 12/11/2024: Weight: 267.4, BMI: 45.9. (-13lbs) 11/06/2024: Weight: 280.7, BMI: 48.2. (-18lbs) 09/20/2024: [...] reviewed. Dictation completed with the use of [employer] voice recognition software, prone to medical misidentifications [...] reviewed. Dictation completed with the use of [employer] voice recognition software, prone to medical misidentifications [...] reviewed. Dictation completed with the use of [employer] voice recognition software, prone to medical misidentifications [...] reviewed. Dictation completed with the use of [employer] voice recognition software, prone to medical misidentifications [...] reviewed. Dictation completed with the use of Dragon voice recognition software, prone to medical misidentifications [...] reviewed. Dictation completed with the use of [employer] voice recognition software, prone to medical misidentifications [...] reviewed. Dictation completed with the use of [employer] voice recognition software, prone to medical misidentifications [...] reviewed. Dictation completed with the use of [employer] voice recognition software, prone to medical misidentifications [...] reviewed. Dictation completed with the use of [employer] voice recognition software, prone to medical misidentifications [...] reviewed. Dictation completed with the use of [employer] voice recognition software, prone to medical misidentifications and grammatical errors. All errors are unintentional. Although the practitioner does try to identify and correct errors, some may be present. Please do not hesitate to contact the practitioner for clarification. Total time was 30 minutes spent with >50% on coordination of care and patient education. 01/17/2025 Nutritional counseling (ICD-10 - Z71.3) Davon is a 44-year-old male with a PMH of HTN, depression, anxiety that presents for weight management follow-up. Reviewed [facility] holistic and medical approach to weight loss with emphasis on lifestyle modification. 01/17/2025: Weight: 260.9, BMI: 44.8 (-7lbs) SECA reviewed, reveals over 5 pounds of fat loss and 1 pound muscle mass loss. Patient encouraged to continue making health-conscious diet choices and prioritizing protein intake. Cussed importance of maintaining active lifestyle. Plan to increase dose of Zepbound to 5 mg SC weekly and follow-up in 6 weeks. 12/11/2024: Weight: 267.4, BMI: 45.9. (-13lbs) 11/06/2024: Weight: 280.7, BMI: 48.2. (-18lbs) 09/20/2024: [...] reviewed. Dictation completed with the use of [employer] voice recognition software, prone to medical misidentifications [...] reviewed. Dictation completed with the use of [employer] voice recognition software, prone to medical misidentifications [...] reviewed. Dictation completed with the use of [employer] voice recognition software, prone to medical misidentifications [...] reviewed. Dictation completed with the use of [employer] voice recognition software, prone to medical misidentifications and grammatical errors. All errors are unintentional. Although the practitioner does try to identify and correct errors, some may be present. Please do not hesitate to contact the practitioner for clarification. Total time was 30 minutes spent with >50% on coordination of care and patient education. Plan Of Treatment Next Appt Details Provider Name:CHANDLER GERMAN Kirstie, 03/07/2025 09:00:00 AM, [address] [facility] [address], [place], [address], Insurance Providers Payer Name Payer Address Payer Phone Subscriber Number Group Number Insured Name Patient Relationship to Insured Coverage Start Date Coverage End Date [facility] [address] [place] [address] [phone] [id number] Davon Wilkerson Self - patient is [...]
--- OUTSIDE RECORDS SUMMARY | 2025-01-31 15:36 | XMS_ITS | Patient Health Record ---
Author Organization Kamar Johnson MD Address [address] [place], [place] [id number] Care Team Providers Care Rod Welder Name Role Phone Kamar Johnson Primary Care Provider Allergies No Known Allergies Results Component Value Reference Range Notes Complete Blood Count Auto Di ff Reviewed date:06/15/2024 03:11:24 PM Interpretation:see back 06-14-2024 Performing Lab:[facility], [address] [place] [phone] Notes/Report: White Blood Count 11.2 4.8-10.8 X10*3/uL [...] NRBC Abs Auto 0.000 0.0-0.012 X10*3/uL Comprehensive [place]. Panel Fa st Reviewed date:05/29/2024 12:55:13 PM Interpretation: Performing Lab:[address] [phone] Notes/Report: Sodium 139 135-145 mmol/L Potassium 3.8 [...] Panel Reviewed date:05/29/2024 12:38:57 PM Interpretation: Performing Lab:[address] [phone] Notes/Report: Triglycerides 155 <150 mg/dL Desirable Triglyceride: [...] (Free>4and<10) Reviewed date:05/29/2024 12:38:49 PM Interpretation: Performing Lab:[facility], [address] [place] [phone] Notes/Report: PSA,Total (Free>4and<10) 0.15 0.00-4.00 ng/mL A [...] t Reviewed date:05/29/2024 04:25:59 PM Interpretation: Performing Lab:[facility], [address] [place] [phone] Notes/Report: Urine, Clean Catch Color Urine Yellow Appearance Urine Clear PH 5.5 5.0-9.0 Glucose Urine UA Negative Negative mg/dL Urine Blood Negative Negative Specific [place] - Urine 1.025 1.005-1.025 Urine Protein 300 [...] PROFILE Reviewed date:06/15/2024 01:29:48 PM Interpretation: Performing Lab:[facility], [address] [place] [phone] Notes/Report: Iron 37 45-160 mcg/dL Total Iron Binding Capacity 341 228-428 mcg/d L Percent Iron Saturation 11 15-50 % Unsaturated Iron Binding 304 Complete Blood Count Auto Di ff Reviewed date:07/31/2024 07:28:09 AM Interpretation:07-30-2024 Performing Lab:[facility], [address] [place] [phone] Notes/Report: White Blood Count 12.2 4.8-10.8 X10*3/uL [...] Abs Auto 0.000 0.0-0.012 X10*3/uL Hold Gold Reviewed date:09/13/2024 12:49:20 PM Interpretation: Performing Lab:[facility], [address] [place] [phone] Notes/Report: Mike Diez See Note Specimen held untested for 24 hours; Call to request Chemistry testing. Complete Blood Count Auto Di ff Reviewed date:09/13/2024 04:56:47 PM Interpretation: Performing Lab:[facility], [address] [place] [phone] Notes/Report: White Blood Count 10.3 4.8-10.8 X10*3/uL [...] date:09/20/2024 12:15:25 PM Interpretation:CBACK IRON 09/20 Performing Lab:[facility], [address] [place] [phone] Notes/Report: Iron 20 45-160 mcg/dL Total Iron Binding Capacity 340 228-428 mcg/d L Percent Iron Saturation 6 15-50 % Unsaturated Iron Binding 320 Reason For Referral Reason DEQUERVAINS TENOSYNO VITIS Diagnosis 1 De Quervain's tenosy novitis (M65.4) Referral Organization Kamar Johnson MD Referring Provider First Name Kamar Referring Provider Last Name Alex Referring Provider Speciality Internal edicine Referred Provider Mahesh Gan Referred Provider [...] Referral Priority Routine Referral Appointment Date 12/11/2024 Reason CARPAL TUNNEL ON BOT H SIDES [...] Referral Priority Routine Referral Appointment Date 12/28/2024 Medications Medication SIG (Take, Route, Frequency, Duration) Notes Start Date End Date Status Doxepin HCl 10 MG 1 capsule at bedtime Orally Once a day Active Tadalafil 20 MG TAKE 1/2 TABLET BY M OUTH ONCE A DAY NEEDED for 60 Active LORazepam 1 MG 1 tablet as needed O rally prn Not-Taking Metoprolol Succinate ER 50 MG TAKE ONE TABLET BY MOUTH EVERY DAY Active Lisinopril 20 MG TAKE ONE TABLET BY M OUTH EVERY DAY Active Zepbound 2.5 MG/0.5ML 0.5 mL Subcutaneous Active buPROPion HCl ER (XL) 300 MG 1 tablet in the morning Orally Once a day Active Immunizations Vaccine Route Administration Date Status [...] W/U Status Risk Notes Problem Erectile dysfunction (973026509) Erectile dysfunction (N52.9) Active confirmed Problem 96760667 Anxiety (F41.9) Active confirmed Problem 65773409 Essential hypertension (I10) Active confirmed Problem 415585925 Morbid obesity (E66.01) Active confirmed Problem 32540343 Iron deficiency anemia, unspecified iron deficiency anemia type (D50.9) Active confirmed Problem 35079009 Internal hemorrhoids (K64.8) Active confirmed Problem Obstructive sleep apnea syndrome (72502336) OMARI (obstructive sleep apnea) (G47.33) Active confirmed Problem 618324671 BMI 45.0-49.9, adult (Z68.42) Active confirmed Problem 19473500624740645 Carpal tunnel syndrome on both sides (G56.03) Active confirmed Vital Signs Blood pressure diastolic 70 mm Hg 11/20/2024 derrick ght is down 26 pounds since 09-20-24 Height 64.5 in 11/20/2024 weight is down 26 pounds since 09-20-24 Blood pressure systolic 112 mm Hg 11/20/2024 weig ht is down 26 pounds since 09-20-24 Weight 274 lbs 11/20/2024 weight is down 26 pounds since 09-20-24 BMI 46.3 kg/m2 11/20/2024 weight is down 26 pounds since 09-20-24 Encounters Encounter Location Date Provider Diagnosis Kamar Johnson MD [address] [place] [address] [place] [id number] 05/29/2024 Kamar Johnson Blood tests for routine general physical examination Z00.00 and Essential hypertension I10 Kamar Johnson MD [address] [place] [id number] 07/16/2024 Kamar Johnson Iron deficiency anemia, unspecified iron deficiency anemia type D50.9 Kamar Johnson MD [address] [place] [id number] 09/13/2024 Kamar Johnson Iron deficiency anemia, unspecified iron deficiency anemia type D50.9 Kamar Johnson MD [address] [place] [id number] 06/14/2024 Kamar Johnson Iron deficiency anemia, unspecified iron deficiency anemia type D50.9 ; Annual physical exam Z00.00 ; Morbid obesity E66.01 ; De Quervain's tenosynovitis M65.4 ; Essential hypertension I10 ; Colon cancer screening Z12.11 ; Depression screening Z13.31 and Anxiety F41.9 Kamar Johnson MD [address] [place] [id number] 07/30/2024 Kamar Johnson Iron deficiency anemia, unspecified iron deficiency anemia type D50.9 and Essential hypertension I10 Kamar Johnson MD [address] [place] [id number] 09/20/2024 Kamar Johnson Iron deficiency anemia, unspecified iron deficiency anemia type D50.9 and Carpal tunnel syndrome on both sides G56.03 Kamar Johnson MD [address] [place] [id number] 11/20/2024 Kamar Johnson Essential hypertension I10 ; Morbid obesity E66.01 and BMI 45.0-49.9, adult Z68.42 Kamar Johnson MD [address] [place] [id number] 06/28/2024 Kamar Johnson Assessments Encounter Date Diagnosis (ICD Code) Assessment Notes Treatment Notes Treatment Clinical Notes Section Notes 05/29/2024 Blood tests for routine general physical examination (ICD-10 - Z00.00) 05/29/2024 Essential hypertension (ICD-10 - I10) 07/16/2024 Iron deficiency anemia, unspecified iron deficiency anemia type (ICD-10 - D50.9) 09/13/2024 Iron deficiency anemia, unspecified iron deficiency anemia type (ICD-10 - D50.9) 06/14/2024 Iron deficiency anemia, unspecified iron deficiency [...] that we should have another colonoscopy now 09/20/2024 Iron deficiency anemia, unspecified iron deficiency anemia type (ICD-10 - D50.9) gettin g colonoscopy in 11/20/2024 Essential hypertension (ICD-10 - I10) doing great with weight loss, stable BP, will continue current regiment 11/20/2024 Morbid obesity (ICD-10 - E66.01) doing great we discussed some of the pitfalls, will continue current regiment 06/14/2024 Morbid obesity (ICD-10 - E66.01) is going to try the weight loss clinic 07/30/2024 Essential hypertension (ICD-10 - I10) doing well 09/20/2024 Carpal tunnel syndrome on both sides (ICD-10 - G56.03) referral to dr quick for surgery/ REFERRAL FAXED TO DR AHUMADA OFFICE FOR NEW PATIENT APPT 11/20/2024 BMI 45.0-49.9, adult (ICD-10 - Z68.42) 06/14/2024 De Quervain's tenosynovitis (ICD-10 - M65.4) [...] 06/07/2019 Complete Blood Count Auto Diff 5 IRON PROFILE 07/30/2024 Next Appt Details Provider Name:Kamar Oseguera ier, 03/11/2025 08:45:00 AM, [address] [place] [address], [address] [facility], [place], [place], [phone], Provider Name:Kamar Oseguera ier, 06/07/2025 08:00:00 AM, [address] [place] [address], [address] [facility], [place], [place], [phone], Provider Name:Kamar Oseguera ier, 06/17/2025 04:00:00 PM, [address] [place] [address], [address] [facility], [place], [place], [phone], Insurance Providers Payer Name Payer Address Payer Phone Subscriber Number Group Number Insured Name Patient Relationship to Insured Coverage Start Date Coverage End Date [employer] [facility] [address] [place], [place] [id number] Davon Wilkerson Self - patient is the insured Medical (General) History Medical History History ICD Code Colonoscopy 01/07/20 - Dr. Rios (repeat 10 years) Hematochezia K92.1 Hematochezia
--- OUTSIDE RECORDS SUMMARY | 2025-01-31 15:37 | XMS_ITS | Clinical Summary ---
Author Organization [address] [facility] Address [address] [place] [address] Phone Care Team Providers Care Religious Studies Professor Name Role Phone Kamar Johnson MD Primary [...] 12/28/2024 8:00 AM EDT Consult Orthopedic Surgery [facility] [address] [facility] [address] [place] [phone] Julia Quick MD Right carpal tunnel syndrome (Primary Dx); Carpal tunnel syndrome on both sides 12/28/2024 Telephone Orthopedic [facility] [address] [facility] [address] [place] [phone] Julia Quick MD from Last 3 Months Surgical History Surgery [...] Description 04/04/2025 7:30 AM EST Hospital Encounter [facility] [address] OR [address] [place] [phone] Julia Quick MD [address] [place] [phone] 04/04/2025 7:30 AM EST - 04/04/2025 9:00 AM EST Surgery [facility] Main OR [address] [place] [phone] Julia Quick MD [address] [place] [phone] ENDOSCOPIC RELEASE RIGHT CARPAL TUNNEL [[id number] (CPT )] 04/15/2025 9:30 AM EST Office Visit Orthopedic Surgery - [address] [place] [address] Pearl Hernandez PA [address] [place] [address] Scheduled Procedures Name Priority Associated Diagnoses Date/Ti me RELEASE CARPAL TUNNEL ENDOSCOPIC Right carpal tunnel syndrome 04/04/2025 7:30 AM EST Health Maintenance Due Date Last Done Comments Diabetes: Annual GFR (Glomerular Filtration Rate) 1978 Diabetes: Annual Foot Exam 1988 Diabetes: Annual Retina Eye Exam 1988 DTaP,Tdap,and Td Vaccines (1 - Tdap) 1997 Hepatitis B Vaccines (1 of 3 - 19+ 3-dose series) 1997 Depression Screening 05/23/2024 Cholesterol Screening (Lipid Panel) 09/29/2024 Colorectal Cancer Screening: Colonoscopy 09/29/2024 HIV Screening 09/29/2024 Hepatitis C Screening 09/29/2024 Social Influencers of Health Screening 09/29/2024 Hypertension/CHF/CAD Annual BMP Blood Test 12/28/2024 Influenza Vaccine (#1) 2025 4, 02/26/2023, 03/01/2022, Additional history exists Diabetes: Annual Urine Albumin-Creatinine Ratio (uACR) 01/30/2025 Diabetes: Blood Sugar Control Test (HGBA1C) 01/30/2025 COVID-19 Vaccine Completed 02/19/2024, 11/2022, 03/10/2022, Additional [...] patient's age to complete this topic Insurance [facility] Care Teams Religious Studies Professor Relationship Specialty Start Date End Date Kamar Johnson MD [address] [place] [address] [address] [place] [address] PCP - General Internal Medicine 09/29/24
--- OUTSIDE RECORDS SUMMARY | 2025-01-31 15:37 | XMS_ITS | Patient Health Record ---
Author Organization [facility] Address [address] [place] [address] Care Team Providers Care Bariatric Physician Name Role Phone Kamar Johnson MD Primary Care Provider Adrián Rocha Unavailable [phone] Allergies No Known Allergies Results Component Value Reference Range Notes Complete Blood Count Auto Di ff (Not yet reviewed by provider) Interpretation: Performing Lab:[facility], [address] [place] [phone] Notes/Report: White Blood Count 9.9 4.8-10.8 X10*3/uL Red Blood Count 5.32 4.60-5.80 X10*6/uL Hemoglobin 10.9 14.0-18.0 g/dl Hematocrit 36.7 42.0-52.0 % Mean Corpuscular Volume 69.0 80.0-98.0 fL Mean Corpuscular Hemoglobin 20.5 27.0-33.0 pg Mean Corpuscular HGB Conc 29.7 31.0-36.0 g/dl Red Cell Distribution Width 20.8 11.0-16.0 % Platelet Count 368 160-400 X10*3/uL Mean Platelet Volume 9.5 9.4-12.4 fL Neutrophils Percent Auto 52.3 45-73 % Imm Gran Pct Auto 0.4 0.0-0.4 % Lymphocytes Percent Auto 34.8 20-40 % Monocytes Percent Auto 9.1 2-11 % Eosinophils Percent Auto 2.6 0-4 % Basophils Percent Auto 0.8 0-2 % NRBC Pct Auto 0.0 0.0-0.2 /100WBC Neutrophils Absolute Auto 5.2 2.0-8.3 x10*3/u L Imm Gran Abs Auto 0.04 0.00-0.03 X10*3/uL Lymphocytes Absolute Auto 3.5 1.2-4.9 X10*3/u L Monocytes Absolute Auto 0.9 0.1-1.2 X10*3/uL Eosinophils Absolute Auto 0.3 0.0-0.4 X10*3/u L Basophils Absolute Auto 0.1 0.0-0.2 X10*3/uL NRBC Abs Auto 0.000 0.0-0.012 X10*3/uL IRON PROFILE (Not yet review ed by provider) Interpretation: Performing Lab:[address] [phone] Notes/Report: Iron 22 45-160 mcg/dL Total Iron Binding Capacity 339 228-428 mcg/d L Percent Iron Saturation 6 15-50 % Unsaturated Iron Binding 317 Ferritin (Not yet reviewed b y provider) Interpretation: Performing Lab:[address] [phone] Notes/Report: Ferritin 7 20-250 ng/mL Vitamin B12 (Not yet reviewe d by provider) Interpretation: Performing Lab:[address] [phone] Notes/Report: Vitamin B12 1346 200-900 pg/mL NORMAL 200-900 PG/ML INDETERMINATE 160-199 PG/ML DEFICIENT < 160 PG/ML Folate (Not yet reviewed by provider) Interpretation: Performing Lab:[address] [phone] Notes/Report: Folate 12.7 > or = 4.0 ng/mL Reference Values: > or = 4.0 ng/mL < 4.0 ng/mL suggests folate deficiency Methotrexate, aminopterin and folinic acid (leucovorin) are chemotherapeutic agents whose molecular structures are similar to folate; therefore, the Physical Education Specialist folate assay cannot be used for patients using these drugs. Celiac Disease Panel (Not ye t reviewed by provider) Interpretation: Performing Lab:[address] [phone] Notes/Report: Immunoglobulin A 357 47-310 mg/dL THIS TEST WAS PERFORMED AT: [facility] [address] [place] [phone] BAYRON CARLOS MD Transglutaminase IgA <1.0 Value Interpretation ----- <15.0 Antibody not detected > or = 15.0 Antibody detected Celiac Disease Panel Interp. SEE NOTE No serological evidence of celiac disease. Total serum IgA is elevated. Consider mucosal inflammatory conditions or underlying gammopathy. Reason For Referral Referring Provider First Name Kamar Referring Provider Last Name Alex Referring Provider Speciality Internal M edicine Referred Organization [facility] Referred Provider Adrián Rios Referred Address [address] [facility] [address],[place], [place],[address], Referred Provider Specialty Gastroentero logy General Notes Eloise Quinteros 2024 08:32:46 AM >call Dr. Johnson' office to request [facility] referral for visit with Dr. Rios on 12-11-24 [phone], Eloise Quinteros 11/12/2024 01:12:52 PM >requested referral Referral Priority Routine Medications Medication SIG (Take, Route, Frequency, Duration) Notes Start Date End Date Status Lisinopril 10 MG TAKE ONE TABLET BY M OUTH EVERY DAY Oral for 90 Active Metoprolol Succinate ER 50 MG TAKE ONE TABLET BY MOUTH EVERY DAY Oral for 90 Active buPROPion HCl ER (XL) 300 MG TAKE ONE TABLET BY MOUTH EVERY DAY Oral for 30 Active LORazepam 1 MG (Schedule IV Drug) T REYNA 1/2 TO 1 TABLET BY MOUTH ONCE A DAY NEEDED Oral for 30 Active Zepbound 2.5 MG/0.5ML Subcutaneous for 28 Days Active Multivitamin - 1 tablet Orally Once a day for 30 day(s) Active Doxepin HCl 10 MG Oral for 30 Days Active Immunizations Vaccine Route Administration Date Status Comme nts Influenza Unknown 01/21/2019 Administered Social History Tobacco Use: Social History Observation Description Date Details (start date - stop date) Never Smoker NA - NA Tobacco Control (Standard) Question Answer Notes Tobacco use: Nonsmoker AUDIT-C (Standard) Question Answer Notes Did you have a drink contain ing alcohol in the past year? Yes How often did you have a dri nk containing alcohol in the past year? 2 to 3 times a week (3 points) How many drinks did you have on a typical day when you were drinking in the past year? 1 or 2 drinks (0 point) How often did you have six o r more drinks on one occasion in the past year? Never (0 point) Points 3 Interpretation Negative Section Notes: Nonsmoker; occasional alcoho l Nonsmoker; occasional alcoho l Problems Problem Type SNOMED Code ICD Code Onset Dates Problem Status W/U Status Risk Notes Problem 64053701 Rectal bleeding (K62.5) Active confirmed Problem Iron deficiency anemia (16626979) Iron deficiency anemia (D50.9) Active confirmed Problem Anemia (261456914) Anemia (D64.9) Active confirmed Procedures Procedure Date Ordered Date Performed Result Body Sit e UPPER GI ENDOSCOPY 01/09/2025 N/A COLONOSCOPY 01/09/2025 N/A Encounters Encounter Location Date Provider Diagnosis [facility] Outpatient [address] [place] [phone] 01/31/2025 Adrián Rios [facility] [address] [place] [phone] 01/09/2025 Adrián Rios Iron deficiency anemia D50.9 [facility] [address] [place] [address] Drive [address] [place] [phone] 11/07/2024 Adrián Rios [facility] [address] [phone] 12/07/2024 Adrián Rios Anemia D64.9 Assessments Encounter Date Diagnosis (ICD Code) Assessment Notes Treatment Notes Treatment Clinical Notes Section Notes 01/09/2025 Iron deficiency anemia (ICD-10 - D50.9) Start an over the counter Iron pill daily, but stop 1 week before the procedures Overall, Davon appears well and is not having any new or worrisome GI complaints. However, we did review that his progressive iron deficiency anemia is definitely worrisome and needs a workup to rule out any possibilities such as chronic GI blood loss from polyps, GI neoplasm, angiodysplasias, malabsorption such as celiac disease, or possible silent ulcer disease or significant gastritis. As such, he will undergo an upper endoscopy and colonoscopy in the relatively near future. We did review the rationale for this in regard to the prevention and/or early detection of colorectal cancer, as well as to rule out any other source of his anemia. Full consent has been obtained from him for both procedures, including risks of bleeding and perforation. The procedures will be done with monitored anesthesia care. I did advise him to start an iron supplement between now and the procedures. He was given the below instructions regarding adjustment of his medications for the procedure. I shall also have him do 3 Hemoccult cards from the lab in the meantime to try to document whether or not he is actually having chronic GI blood loss. Depending upon the results of the workup he may need further evaluation for consideration of a small bowel video capsule study and/or small bowel enteroscopy in regard to the anemia and possible chronic GI blood loss. Davon was comfortable with this plan. Thank you again for allowing me to participate in Davon's care. I shall continue to keep you advised of his progress. 12/07/2024 Anemia (ICD-10 - D64.9) Plan Of Treatment Pending Test Test Name Order Date UPPER GI ENDOSCOPY 01/09/2025 Hemoccult Cards (Non-Screening) 01/10/20 25 COLONOSCOPY 01/09/2025 IRON + IBC (FE) 12/07/2024 CBC w DIFF 12/07/2024 CELIAC PANEL #10 12/07/2024 Complete Blood Count Auto Diff IRON PROFILE 01/07/2025 Ferritin 12/07/2024 Ferritin 01/07/2025 Vitamin B12 and Folate 12/07/2024 Vitamin B12 01/07/2025 Folate 01/07/2025 Celiac Disease Panel 01/07/2025 Future Test Test Name Order Date COLONOSCOPY 11/20/2019 Insurance Providers Payer Name Payer Address Payer Phone Subscriber Number Group Number Insured Name Patient Relationship to Insured Coverage Start Date Coverage End Date [facility] [address] [place] [address] [id number] DAVON WILKERSON Self - patient is the insured Medical (General) History Medical History History ICD Code Sleep apnea-uses CPAP HTN Kidney stones Depression/anxiety Denies WI,DM,CVA,Lung disease,renal dise ase Proteinuria for which he sees Dr. Chanel Negative colonoscopy in 2019 for the jada luation of some rectal bleeding Iron deficiency anemia noted in Summer o 2024- - progressive since 2023 Surgical History Surgery Date(Month/Year) Carpal tunnel surgery 03/12
== END 2025-01-31 11:19 | disposition home or self-care (01) ==
LOC: HO.HOP 11:18
PROVIDERS: PCP Internal Medicine; Visit Provider Psychiatry & Neurology Psychiatry
DX: F33.42 Major depressive disorder, recurrent, in full remission (principal); F41.1 Generalized anxiety disorder
CPT/HCPCS: 99213

== ENCOUNTER 2025-01-31 11:55 | Day surgery (SDC) | payer BC, SELFPAY ==
--- OUTSIDE RECORDS SUMMARY | 2024-09-13 03:30 | XMS_ITS ---
Author Organization Kamar Johnson MD Address [address] [place], [place] [address] Care Team Providers Care Senior Telecommunications Specialist Name Role Phone Kamar Johnson Primary Care Provider Results Component Value Reference Range Notes Complete Blood Count Auto Di ff Reviewed date:09/13/2024 04:56:47 PM Interpretation: Performing Lab:[facility], [address] [place] [phone] Notes/Report: White Blood Count 10.3 4.8-10.8 X10*3/uL Red Blood Count 4.54 4.60-5.80 X10*6/uL Hemoglobin 9.7 14.0-18.0 g/dl Hematocrit 32.8 42.0-52.0 % Mean Corpuscular Volume 72.2 80.0-98.0 fL Mean Corpuscular Hemoglobin 21.4 27.0-33.0 pg Mean Corpuscular HGB Conc 29.6 31.0-36.0 g/dl Red Cell Distribution Width 17.9 11.0-16.0 % Platelet Count 369 160-400 X10*3/uL Mean Platelet Volume 9.8 9.4-12.4 fL Neutrophils Percent Auto 54.7 45-73 % Imm Gran Pct Auto 0.3 0.0-0.4 % Lymphocytes Percent Auto 31.4 20-40 % Monocytes Percent Auto 9.6 2-11 % Eosinophils Percent Auto 3.4 0-4 % Basophils Percent Auto 0.6 0-2 % NRBC Pct Auto 0.0 0.0-0.2 /100WBC Neutrophils Absolute Auto 5.6 2.0-8.3 x10*3/u L Imm Gran Abs Auto 0.03 0.00-0.03 X10*3/uL Lymphocytes Absolute Auto 3.2 1.2-4.9 X10*3/u L Monocytes Absolute Auto 1.0 0.1-1.2 X10*3/uL Eosinophils Absolute Auto 0.4 0.0-0.4 X10*3/u L Basophils Absolute Auto 0.1 0.0-0.2 X10*3/uL NRBC Abs Auto 0.000 0.0-0.012 X10*3/uL IRON PROFILE Reviewed date:09/20/2024 12:15:25 PM Interpretation:CBACK IRON 09/20 Performing Lab:[facility], [address] [place] [phone] Notes/Report: Iron 20 45-160 mcg/dL Total Iron Binding Capacity 340 228-428 mcg/d L Percent Iron Saturation 6 15-50 % Unsaturated Iron Binding 320 REASON FOR VISIT Iron profile, CBS and diff Encounters Encounter Location Date Provider Diagnosis Kamar Johnson MD [address] [place] [address] [place] [phone] 09/13/2024 Kamar Johnson Iron deficiency anemia, unspecified iron deficiency anemia type D50.9 Assessments Encounter Date Diagnosis (ICD Code) Assessment Notes Treatment Notes Treatment Clinical Notes Section Notes 09/13/2024 Iron deficiency anemia, unspecified iron deficiency anemia type (ICD-10 - D50.9) Plan Of Treatment Next Appt Details Provider Name:Kamar lynch, 03/11/2025 08:45:00 AM, [address] [place] [address], [address] [place] [address], [phone], Provider Name:Kamar lynch, 06/07/2025 08:00:00 AM, [address] [place] [address], [address], [phone], Provider Name:Kamar lynch, 06/17/2025 04:00:00 PM, [address] [place] [address], [address], [phone], Progress Notes * Randall WILKERSON:1980 (44 yo M)Acc No.[id number]:09/13/2024 Progress Note Patient: Davon DUNHAM Provider: Kelsea Johnson MD :1980 A ge:44 Y S ex:Male Date:09/13/2024 Address:[address] [place], [place] [phone] Subjective: * Chief Complaints: * 1 . Iron profile, CBS and diff. * Medical History: Objective: * Vitals: Assessment: [...] * Provider: Kelsea Johnson MD Date: 0 09/13/2024 Generated for Rehana torres/Roopa/Kristaitting on: 0 01/10/2025 07:28 AM EDT
--- OUTSIDE RECORDS SUMMARY | 2024-12-11 05:20 | XMS_ITS ---
Author Organization [facility] Address [address] [place] [address] Care Team Providers Care Data Miner Name Role Phone Alex DAVID, Kamar Primary Care Provider Adrián Rocha [phone] REASON FOR VISIT Patient presents today for anemia Encounters Encounter Location Date Provider Diagnosis [facility] [address] [place] [phone] 12/11/2024 Adrián Rios Plan Of Treatment No Information Progress Notes * ANN WILKERSONOB:1980 (44 yo M)Acc No.[id number]:12/11/2024 Progress Notes Patient: HUBER DUNHAM Provider: Virgie Rios MD :1980 A ge:44 Y S ex:Male Date:12/11/2024 Address:[address] [place], [place] [address] [facility] [place] Pcp:Kamar Johnson MD Subjective: * Chief Complaints: [...] MD Date: 0 12/11/2024 Generated for Ricoi brian/Roopa/eTransmitting on: 0 01/10/2025 07:28 AM EDT
--- OUTSIDE RECORDS SUMMARY | 2025-01-10 07:29 | XMS_ITS | Clinical Summary ---
Author Organization [facility] Address [address] [place] [address] Phone Care Team Providers Care Inserting Operator Name Role Phone Kamar Johnson MD [...] EDT Consult Orthopedic Surgery [facility] [address] [phone] Julia Quick MD Right carpal tunnel syndrome (Primary Dx); Carpal tunnel syndrome on both sides 12/28/2024 Telephone Orthopedic Surgery [facility] [address] [phone] Julia Quick MD Surgery from Last 3 Months Surgical History Surgery Date Site/Laterality Comments CARPAL TUNNEL RELEASE 05/23/2020 - 05/22/2021 Left Social History Tobacco Use Types Packs/Day Years Used Date Smoking Tobacco: Never Assessed Sex and Gender Information Value Date Recorded Sex Assigned at Not on file Legal Sex Male 10:11 AM EDT Gender Identity Not on file Sexual Orientation Not on file Obstetrics History Last Filed Vital Signs Vital [...] Description 04/04/2025 7:30 AM EST Hospital Encounter [facility] Main OR [address] [place] [phone] Julia Quick MD [address] [address] 04/04/2025 7:30 AM EST - 04/04/2025 9:00 AM EST Surgery [facility] Main OR [address] [place] [phone] Julia Quick MD [address] [address] ENDOSCOPIC RELEASE RIGHT CARPAL TUNNEL [[id number] (CPT )] 04/15/2025 9:30 AM EST Office Visit Orthopedic Surgery - [place] 175 [facility] [address] [place] [address] Pearl Hernandez PA [address] [place] [address] Scheduled Procedures Name Priority Associated Diagnoses Date/Ti [...] patient's age to complete this topic Insurance [facility] Care Teams Inserting Operator Relationship Specialty Start Date End Date Kamar Johnson MD [address] [place] [address] Drive [address] [place] [address] PCP - General Internal Medicine 09/29/24
--- OUTSIDE RECORDS SUMMARY | 2025-01-10 07:29 | XMS_ITS | Clinical Summary ---
Author Organization [facility] Facility Address [address] [facility] [address] [place] [address] Care Team Providers Care Locomotive Crane Operator Name Role Phone Kamar Johnson MD [...] Visit [facility] [address] [place] [phone] Joselo Chanel MD Persistent proteinuria (Primary Dx); [...] Visit [facility] [address] [place] [address] Joselo Chanel MD [address] [facility] [address] [place] [address] Health Maintenance Due Date Last [...] 03/06/2021, 04/24/2019, Additional history exists Care Teams Locomotive Crane Operator Relationship Specialty Start Date End Date Kamar Johnson MD [address] [facility] [address] [place], [place] PCP - General Internal Medicine 06/08/22
--- OUTSIDE RECORDS SUMMARY | 2025-01-10 07:29 | XMS_ITS | Patient Health Record ---
Author Organization [facility] [address] Address [address] [place] [address] Care Team Providers Care Mixer Operator Hot Metal Name Role Phone Kamar Johnson Primary Care Provider CHANDLER Beltran Unavailable [phone] Allergies No Known Allergies Reason For Referral [...] W/U Status Risk Notes Problem Essential hypertension (46556340) Essential hypertension (I10) Active confirmed Problem Morbid obesity (802840184) Morbid obesity (E66.01) Active confirmed Problem Body mass index 40+ - severely obese (809287919) BMI 45.0-49.9, adult (Z68.42) Active confirmed Problem Iron deficiency anemia secondary to inadequate dietary iron intake (725303256) Iron deficiency anemia secondary to inadequate dietary iron intake (D50.8) Active confirmed Problem Generalized anxiety disorder (58548250) Anxiety, generalized (F41.1) Active confirmed Problem Moderate major depression (764583) 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) Active confirmed Vital Signs Heart Rate 76 /min 12/11/2024 Oximetry 98 % 12/11/2024 Blood pressure diastolic 88 mm Hg 12/11/2024 Height 64 in 12/11/2024 Blood pressure systolic 130 mm Hg 12/11/2024 Weight 267.4 lbs 12/11/2024 BMI 45.89 kg/m2 12/11/2024 Encounters Encounter Location Date Provider Diagnosis [facility] [address] [address] 07/25/2024 CHANDLER UPTON Morbid obesity E66.0 1 ; BMI 50.0-59.9, adult Z68.43 ; Essential hypertension I10 and Nutritional counseling Z71.3 [facility] [address] [address] 08/21/2024 CHANDLER UPTON Morbid obesity E66.0 1 ; BMI 50.0-59.9, adult Z68.43 ; Essential hypertension I10 and Nutritional counseling Z71.3 [facility] [address] [facility] [address] [place] [address] 09/20/2024 CHANDLER UPTON Morbid obesity E66.0 1 ; BMI 50.0-59.9, adult Z68.43 ; Essential hypertension I10 and Nutritional counseling Z71.3 [facility] [address] [facility] [address] [place] [address] 11/06/2024 CHANDLER UPTON Morbid obesity E66.0 1 ; BMI 45.0-49.9, adult Z68.42 ; Essential hypertension I10 and Nutritional counseling Z71.3 [facility] [address] [facility] [address] [place] [address] 12/11/2024 CHANDLER UPTON Morbid obesity E66.0 1 ; BMI 45.0-49.9, adult Z68.42 ; Essential hypertension I10 and Nutritional counseling Z71.3 [facility] [address] [facility] [address] [place] [address] 07/25/2024 CHANDLER UPTON [facility] [address] [facility] [address] [place] [address] 10/18/2024 [facility] Morbid obesity E66.0 1 [facility] [address] [facility] [address] [place], [place] 11/12/2024 CHANDLER BELTRÁN [facility] [address] [facility] [address] [place] [address] 12/26/2024 CHANDLER BELTRÁN [facility] [address] [facility] [address] [place] [address] 12/26/2024 CHANDLER BELTRÁN Assessments Encounter Date Diagnosis [...] reviewed. Dictation completed with the use of ORVIBO voice recognition software, prone to medical misidentifications [...] reviewed. Dictation completed with the use of ORVIBO voice recognition software, prone to medical misidentifications [...] reviewed. Dictation completed with the use of ORVIBO voice recognition software, prone to medical misidentifications [...] reviewed. Dictation completed with the use of ORVIBO voice recognition software, prone to medical misidentifications [...] reviewed. Dictation completed with the use of ORVIBO voice recognition software, prone to medical misidentifications [...] reviewed. Dictation completed with the use of ORVIBO voice recognition software, prone to medical misidentifications [...] reviewed. Dictation completed with the use of ORVIBO voice recognition software, prone to medical misidentifications [...] reviewed. Dictation completed with the use of ORVIBO voice recognition software, prone to medical misidentifications [...] reviewed. Dictation completed with the use of ORVIBO voice recognition software, prone to medical misidentifications [...] reviewed. Dictation completed with the use of ORVIBO voice recognition software, prone to medical misidentifications [...] reviewed. Dictation completed with the use of ORVIBO voice recognition software, prone to medical misidentifications [...] reviewed. Dictation completed with the use of ORVIBO voice recognition software, prone to medical misidentifications [...] questions/concerns arise. Case discussed with collaborating physician Jsolyn Gaines who has reviewed the assessment/plan. Chart, medications, labs, and vital signs reviewed. Dictation completed with the use of ORVIBO voice recognition software, prone to medical misidentifications [...] reviewed. Dictation completed with the use of ORVIBO voice recognition software, prone to medical misidentifications [...] reviewed. Dictation completed with the use of ORVIBO voice recognition software, prone to medical misidentifications [...] reviewed. Dictation completed with the use of ORVIBO voice recognition software, prone to medical misidentifications [...] reviewed. Dictation completed with the use of ORVIBO voice recognition software, prone to medical misidentifications [...] reviewed. Dictation completed with the use of ORVIBO voice recognition software, prone to medical misidentifications [...] reviewed. Dictation completed with the use of ORVIBO voice recognition software, prone to medical misidentifications [...] reviewed. Dictation completed with the use of ORVIBO voice recognition software, prone to medical misidentifications [...] Provider Name:CHANDLER Thacker, 01/17/2025 09:00:00 AM, [address], [address], Insurance Providers Payer Name Payer Address Payer Phone Subscriber Number Group Number Insured Name Patient Relationship to Insured Coverage Start Date Coverage End Date [facility] [address] [place] [address] [id number] Davon Wilkerson Self - patient is [...]
[2025-01-29 14:10] VITALS: BMI 57.0
[2025-01-31] MEDS: Lactated Ringers 1,000 ML 100 ML IVCONT (12:28)
[2025-01-31 12:29] VITALS: BMI 42.9
[2025-01-31 12:31] VITALS: BP 137/80; PULSE 84; RESP 18; TEMP 36.7; O2SAT 98
--- NOTE | 2025-01-31 12:50 | HO.ANESPROP2 ---
Documented by User: Dorinda Jones NP 01/29/25 14:51 HPI - Anesthesia Eval Consult details Narrative: 44yo M for Upper Endoscopy and Colonoscopy BMI 57 Anesthesia Pre-Procedure Meds Is the patient on any of the following meds?: GLP1/DPP4 PMFSH Active Problems Active Problems: All Active Problems Hypertension (Acute) Major depression, recurrent, full remission (Acute) Generalized anxiety disorder (Acute) OMARI on CPAP (Acute) Morbid obesity (Acute) Past Medical History Medical History Depression HTN (hypertension) Generalized anxiety disorder OMARI on CPAP Morbid obesity Surgical History Surgical History (Updated 01/31/25 @ 12:32 by Kiersten Birch RN) Hx of colonoscopy Social History Social History Are you a primary child care attendant to a significant other at home: No Do you presently have visiting nurse or other home services: No Patient Tobacco Use Status: Never used Tobacco Substance Use Frequency: Occasionally Have you been hit, kicked, punched, or otherwise hurt by someone within the past year? If so, by whom?: No Are you DNR?: No Advance Directives: No Advance Directives Information Provided: Yes Poor oral hygiene: No Meds Allergies Allergy/AdvReac Type Severity Reaction Status Date / Time No Known Allergies Allergy Verified 01/31/25 12:32 Home Medications ?Medication ?Instructions ?Recorded ?Confirmed ?Last Taken ?Type metoprolol succinate 50 mg 50 mg PO DAILY 06/23/21 01/31/25 01/31/25 History tablet,extended release 24 hr lisinopril 20 mg tablet 20 mg PO DAILY 07/19/23 01/31/25 Unknown History tirzepatide (weight loss) 2.5 mg subcut 08/24/24 01/31/25 01/20/25 History mg/0.5 mL subcutaneous pen injector (Zepbound) Exam Height,Weight and Vital Signs: Height 5 ft 4 in Weight 150.593 kg Assessment and Plan Assessment Anesthesia Assessment: Chart Reviewed Documented by User: Pilar Gonzalez DO 01/31/25 13:33 HPI - Anesthesia Eval Consult details Narrative: 44yo M for Upper Endoscopy and Colonoscopy BMI 43 Anesthesia Pre-Procedure Meds Is the patient on any of the following meds?: GLP1/DPP4 PMFSH Past Medical History Medical History Depression HTN (hypertension) Generalized anxiety disorder OMARI on CPAP Morbid obesity Family History Family history of problems with anesthesia: No Surgical History Surgical History (Updated 01/31/25 @ 12:32 by Kiersten Birch RN) Hx of colonoscopy History of Problems with Anesthesia: No Social History Social History Are you a primary child care attendant to a significant other at home: No Do you presently have visiting nurse or other home services: No Patient Tobacco Use Status: Never used Tobacco Substance Use Frequency: Occasionally Have you been hit, kicked, punched, or otherwise hurt by someone within the past year? If so, by whom?: No Are you DNR?: No Advance Directives: No Advance Directives Information Provided: Yes Poor oral hygiene: No Meds Allergies Allergy/AdvReac Type Severity Reaction Status Date / Time No Known Allergies Allergy Verified 01/31/25 12:32 Home Medications ?Medication ?Instructions ?Recorded ?Confirmed ?Last Taken ?Type metoprolol succinate 50 mg 50 mg PO DAILY 06/23/21 01/31/25 01/31/25 History tablet,extended release 24 hr lisinopril 20 mg tablet 20 mg PO DAILY 07/19/23 01/31/25 Unknown History tirzepatide (weight loss) 2.5 mg subcut 08/24/24 01/31/25 01/20/25 History mg/0.5 mL subcutaneous pen injector (Zepbound) Exam Exam Date and Time: 01/31/25 1250 Height,Weight and Vital Signs: Height 5 ft 4 in Weight 150.593 kg Vital Signs Temperature 98.1 F 01/31/25 12:31 Pulse Rate 84 01/31/25 12:31 Respiratory Rate 18 01/31/25 12:31 Blood Pressure 137/80 01/31/25 12:31 Pulse Oximetry 98 01/31/25 12:31 Oxygen Delivery Method Room Air 01/31/25 12:31 Temperature 98.1 F 01/31/25 12:31 Pulse Rate 84 01/31/25 12:31 Respiratory Rate 18 01/31/25 12:31 Blood Pressure 137/80 01/31/25 12:31 Pulse Oximetry 98 01/31/25 12:31 Oxygen Delivery Method Room Air 01/31/25 12:31 Height 5 ft 4 in Weight 113.5 kg Airway Mallampati Class: II TM Dist: <=3cm Neck ROM: Full Loose/Missing/Broken Teeth: Yes (several broken teeth) Heart: S1S2 Lungs: CTAB Assessment and Plan Assessment Anesthesia Assessment: Anesthesia Plan Discussed and Chart Reviewed Final Anesthetic Review Family History of Problems with Anesthesia: No History of Problems with Anesthesia: No NPO: Yes ASA Class: III Final Preanesthetic Review: No Changes in Pt Med Stat, Meds/Allgs Chart Reviewed, Consent Obtained/Reviewed and Anes Risks/Benef Reviewed Patient Risk: Intermediate Procedure Risk: Low Anesthetic Plan Anesthetic Plan: MAC: and Agree w/ Assess. and Plan Disposition: Standard PACU
[2025-01-31 14:45] VITALS: BP 111/79; PULSE 101; RESP 18; TEMP 36.1; O2SAT 100
--- NOTE | 2025-01-31 14:49 | PM.OP ---
Brief Operative Note Date of Service: 01/31/25 Pre-op diagnosis: Anemia Post-op diagnosis: other (Hiatal hernia, Gastric polyps, R/O Celiac disease, Diverticulosis, Internal hemorrhoids) Procedure: EGD with biopsies, Colonoscopy to the cecum and TI Surgeon: Adrián Rios MD Anesthesia: MAC Was an Outboard Technician used for this Procedure?: No Estimated blood loss (mL): 2.0 Pathology: other (A. 2nd and 3rd portions of duodenum B. Gastric polyps) Condition: stable Disposition: PACU
[2025-01-31 15:00] VITALS: BP 142/75; PULSE 93; RESP 18; TEMP 36.1; O2SAT 100
--- NOTE | 2025-01-31 23:45 | OP_ITS ---
DATE OF SERVICE: 01/31/2025 SURGEON: Adrián Rios MD INDICATIONS: The patient presents for evaluation of the anemia. Full consent has been obtained from him for both procedures, including risks of bleeding and perforation. PREOPERATIVE DIAGNOSIS: Anemia. POSTOPERATIVE DIAGNOSIS: PROCEDURE PERFORMED: Esophagogastroduodenoscopy with biopsies, and colonoscopy to cecum and terminal ileum. ESTIMATED BLOOD LOSS: COMPLICATIONS: ANESTHESIA: Medication used, monitored anesthesia care. ASSISTANTS: SPECIMENS: POSTOPERATIVE DIAGNOSES: Anemia, small hiatal hernia, gastric polyps, rule out celiac disease, occasional sigmoid diverticulosis, internal hemorrhoids. DESCRIPTION OF PROCEDURE: The patient was placed in the left lateral decubitus position. The Olympus video gastroscope was passed in the posterior oropharynx and upper esophagus under direct vision. The scope was passed slowly to the distal esophagus. The gastroesophageal junction appeared normal at 38 cm. There was no sign of any esophagitis nor Lopez esophagus. There was a small hiatal hernia. The hiatal hernia mucosa appeared normal other than some gastric polyps. The scope was advanced to the pylorus, and the duodenum was cannulated to the descending portion. The duodenum including the bulb appeared normal without mass or ulceration. Biopsies were obtained from the 2nd and 3rd portions of duodenum to rule out celiac disease. The scope was withdrawn back to the stomach. The gastric antrum and body appeared normal with good peristalsis. The scope was retroflexed visualizing the proximal stomach carefully, which appeared normal, without any sign of mass or ulceration, other than some hyperplastic appearing gastric polyps. Two of these were biopsied. The scope was straightened and withdrawn back to the esophagus. The esophageal mucosa appeared completely normal. The scope was withdrawn from the patient. He was turned around for the colonoscopy. The digital rectal exam revealed no abnormalities. The Olympus video pediatric colonoscope was entered into the rectum and advanced easily to the cecum. Once in the cecum, I did identify normal-appearing cecal pouch with appendiceal orifice and a normal-appearing ileocecal valve. The terminal ileum was cannulated and appeared normal. The scope was withdrawn back in the colon. The entire cecum and ileocecal valve appeared normal. The scope was slowly withdrawn assessing all mucosal surfaces carefully. Preparation was excellent. I did not visualize any sign of polyps, colitis, nor any angiodysplasia. There were occasional diverticula noted in the sigmoid colon. In the rectum, scope was retroflexed visualizing internal hemorrhoids, but no other pathology. The rectal mucosa appeared normal. The scope was straightened and withdrawn from the patient. He tolerated both procedures well and was returned to the recovery area in stable condition. IMPRESSION: 1. Rule out celiac disease. 2. Gastric polyps. 3. Hiatal hernia. 4. Occasional sigmoid diverticulosis. 5. Internal hemorrhoids. PLAN: The results of the biopsies will be checked. He has been advised to resume his Iron at least once a day but to take it twice a day if he does not have any particular GI upset from it. He was advised that he could resume his Zepbound as well. He was advised not to use any aspirin nor NSAIDs for least a week, but to try to avoid those long-term given the potential for blood loss. I advised him that I will arrange for an outpatient followup CBC in a month or 2. His most recent hemoglobin from mid December was 10.9 compared to 9.7 in August. We did discuss that he may need a small bowel capsule study for further evaluation of his anemia, but I do not think that is urgent at this time. I would recommend a repeat colonoscopy in 10 years for further screening. My office will arrange a followup office appointment for him as well. This has all been discussed with the patient and his today. MD LIO Bro/WENDY / [id number] ELÍAS
== END 2025-01-31 15:20 | disposition home or self-care (01) ==
PROVIDERS: PCP Internal Medicine; Visit Provider Internal Medicine
PROC: (CPT 43239; principal; 2025-01-31 13:00)
DX: D50.9 Iron deficiency anemia, unspecified (principal); K57.30 Diverticulosis of large intestine without perforation or abscess without bleeding; K64.8 Other hemorrhoids; K31.7 Polyp of stomach and duodenum; K44.9 Diaphragmatic hernia without obstruction or gangrene; I10 Essential (primary) hypertension; G47.33 Obstructive sleep apnea (adult) (pediatric); Z99.89 Dependence on other enabling machines and devices
CPT/HCPCS: 43239; G0121; 88305; 88313; 88342; J2003; J2250; J2704